=== PATIENT | female | born 1975 | race Caucasian/White ===

== ENCOUNTER 2023-02-13 09:00 | Day surgery (SDC) | payer OTHER ==
[2023-02-12 11:33] VITALS: BMI 45.3
[~2023-02-13 09:00] MED LIST: ALPRAZolam 0.25 MG TAB PO PRN; ALPRAZolam 0.5 MG TAB PO PRN; ASPIRIN 325 MG TAB PO STA; ATORVASTATIN 80 MG TAB PO STA; HEPARIN SODIUM,PORCINE (1 ML) 2,500 UNIT in SODIUM CHLORIDE 0.9% 250 ML IRRIGATION PRN; HEPARIN SODIUM,PORCINE 10,000 UNIT in SODIUM CHLORIDE 0.9% 1,000 ML IRRIGATION PRN; NITROGLYCERIN SL TABS 0.4 MG TAB SUBLINGUAL PRN; SODIUM CHLORIDE 0.9% 1,000 ML in EMPTY BAG 1 BAG IV SCH
[2023-02-13 09:52] VITALS: RESP 18; TEMP 98.1
[2023-02-13 09:58] LABS: Basophils % (A) 0 %; Eosinophils # (A) 0.4 k/uL (0-0.7); Eosinophils % (A) 4 %; HCT 50.7 % (34.0-46.0); HGB 15.7 gm/dL (11.4-16.0); Hypochromasia Moderate; Lymphocytes % (A) 21 %; MCH 30.3 pg (25.0-35.0); MCHC 30.9 g/dL (31.0-37.0); MCV 98.2 fL (80.0-100.0); Macrocytosis Slight; Monocytes % (A) 11 %; Neutrophils # (A) 5.8 k/uL (1.3-7.7); Neutrophils % (A) 60 %; Platelet Count 204 k/uL (150-450); RBC 5.16 m/uL (3.80-5.40); RDW 15.1 % (11.5-15.5); WBC 9.6 k/uL (3.8-10.6)
[2023-02-13 10:16] LABS: African American GFR (CKD) 71 (>60 ml/min/1.73 sqM); Anion Gap 9 mmol/L; Blood Urea Nitrogen 18 mg/dL (7-17); Calcium 9.4 mg/dL (8.4-10.2); Carbon Dioxide 26 mmol/L (22-30); Chloride 100 mmol/L (98-107); Glucose 118 mg/dL (74-99); Non-African American GFR(CKD) 62 (>60 ml/min/1.73 sqM); Potassium 4.3 mmol/L (3.5-5.1); Sodium 135 mmol/L (137-145)
[2023-02-13] MEDS ORDERED: VERAPAMIL 2.5 MG/ML 2 ML AMP ONE (10:28)
[2023-02-13] MEDS ORDERED: HEPARIN SODIUM 1,000 UN/ML (10ML VL) ONE (10:29)
[2023-02-13] MEDS ORDERED: fentaNYL (PF) 50 MCG/ML 2 ML AMP ONE (10:29)
[2023-02-13] MEDS: MIDAZOLAM 2 MG/2 ML VIAL IVP ONE ×2 (10:36→10:42)
[2023-02-13] MEDS: fentaNYL (PF) 50 MCG/ML 2 ML AMP IVP ONE ×2 (10:37→10:42)
[2023-02-13] MEDS: LIDOCAINE 2% (PF) 20 MG/ML 5 ML VIAL SQ ONE ×2 (10:41→10:46)
[2023-02-13] MEDS ORDERED: VERAPAMIL SYRINGE (5 MG/10 ML) INTRAARTER ONE (10:43)
[2023-02-13] MEDS ORDERED: HEPARIN SODIUM 1,000 UN/ML (10ML VL) IVP ONE (11:01)
[2023-02-13] MEDS ORDERED: IOPAMIDOL-370 100ML BTL INJ ONE ×2 (11:10)
[2023-02-13 11:30] LABS: O2 Sat Blood Gas 46.3 %
[2023-02-13 11:32] LABS: O2 Sat Blood Gas 79.4 %
[2023-02-13 11:46] LABS: O2 Sat Blood Gas 44.9 %
--- NOTE | 2023-02-13 15:46 | P.CARDCATH ---
Description of Procedure: PROCEDURES PERFORMED: Left heart catheterization, right heart catheterization, left ventriculogram, bilateral coronary angiography, ultrasound guided arterial access INDICATION: CMP, pulmonary hypertension CONSENT:I have discussed the risks, benefits and alternative therapies for the above-mentioned procedure and for both sedation/analgesia as well as necessary blood product administration, if indicated, as they pertain to this patient. The patient has indicated understanding and acceptance of the risks and procedures discussed. PROCEDURE: After the risks, benefits and alternatives of the above mentioned procedure explained in detail with the patient, informed consent was obtained. Patient was taken to the catheterization lab and prepped and draped in usual fashion. Ultrasound guidance was used to assess for arterial access. 1% lidocaine was used to anesthetize the right radial artery and right brachial areas. A 6-[place] sheath was placed in the right radial artery and additional 6-[place] sheath in the right brachial vein using modified Seldinger technique and ultrasound guidance. A 6Fr [place] catheter was inserted in the right atrium, right ventricle, pulmonary arterial and pulmonary Wedge positions with pressure measurements and oxygen saturation saturations obtained. Thermodilution was performed. The catheter was then removed. Left coronary angiography was performed with a 5-[place] JL 3.5 catheter and right coronary angiography was performed with a 5-[place] JR5 catheter in various views. A 5- [place] FR5 catheter was inserted into the left ventricle and pressure measurements were obtained. The right radial sheath was removed and a TR band was placed with hemostasis achieved. The brachial sheath was removed with pressure held and hemostasis achieved. The patient tolerated the procedure well. Patient was transported back to the post catheterization holding area in stable condition. Conscious Sedation: Patient was monitored under the direct supervision of myself for conscious sedation using Versed and fentanyl for a total duration of 25 minutes HEMODYNAMICS: Aorta: 167/97 LV: 160/14, LVEDP 27 Pulmonary Wedge position: 17 Pulmonary artery: 75/25 RV: 84/10 RA: 19 Pulmonary artery oxygen saturation: 46% Right atrial oxygen saturation: 45%: Right radial oxygen saturation: 79% (however pulse ox in 90's) Cardiac output by Leanne: 4.0 L/m Cardiac index by Leanne: 2 L/min/m2 Cardiac output thermodilution: 6.5 L/m Cardiac index by thermodilution: 3.2 L/m/m SELECTIVE CORONARY ARTERIOGRAPHY: LEFT MAIN: The left main is a large caliber vessel which bifurcates into the LAD and circumflex. There is no significant stenosis. LEFT ANTERIOR DESCENDING CORONARY ARTERY: LAD is a large caliber vessel which wraps around to the apex. There is mild 20-30% mid LAD stenosis and otherwise mild luminal irregularities. LEFT CIRCUMFLEX CORONARY ARTERY: Left circumflex is a moderate caliber vessel with luminal irregularities. RIGHT CORONARY ARTERY: The right coronary artery is a large caliber vessel which gives off a PDA and PLV branch and is the dominant vessel. There is a mid RCA 20-30% stenosis and otherwise mild luminal irregularities. LEFT VENTRIUCLOGRAM: Left ventricular ejection fraction 40-45% with global hypokinesis FINAL IMPRESSION: 1. Mild CAD as described above including 20-30% mid LAD and 20th 30% mid RCA stenosis. 2. Elevated left and right sided filling pressures 3. Nonischemic cardiomyopathy EF 40-45% 4. Low-normal cardiac output/cardiac index PLAN: 1. Aggressive risk factor modification per most recent ACC/AHA guidelines. 2. Optimize heart failure regimen with the addition of Aldactone and increase diuretics.
[2023-02-13 16:39] VITALS: BP 114/62; PULSE 64
== END 2023-02-13 16:00 | disposition home or self-care (01) ==
LOC: CATHCVL 09:00 → EDSEX 10:30 → CATHCVL 16:00
PROVIDERS: ATTEND Internal Medicine
DX: I25.10 Atherosclerotic heart disease of native coronary artery without angina pectoris (principal); I42.8 Other cardiomyopathies; I77.1 Stricture of artery; I27.20 Pulmonary hypertension, unspecified; I13.0 Hypertensive heart and chronic kidney disease with heart failure and stage 1 through stage 4 chronic kidney disease, or unspecified chronic kidney disease; N18.9 Chronic kidney disease, unspecified; I50.23 Acute on chronic systolic (congestive) heart failure; J44.9 Chronic obstructive pulmonary disease, unspecified; F17.210 Nicotine dependence, cigarettes, uncomplicated; Z91.199 Patient's noncompliance with other medical treatment and regimen due to unspecified reason; Z86.711 Personal history of pulmonary embolism; Z88.2 Allergy status to sulfonamides; Z88.1 Allergy status to other antibiotic agents; Z88.8 Allergy status to other drugs, medicaments and biological substances; Z79.82 Long term (current) use of aspirin; Z79.899 Other long term (current) drug therapy
CPT/HCPCS: 93460; 76937; 80048; 85018; 82810; 85025; 81025; C1769 ×2; C1894; C1751; J2250; J3010; J1644; Q9967; J2001

== ENCOUNTER 2023-06-10 02:23 | Inpatient (IN) | payer BC, OTHER ==
[2023-06-10] MEDS ORDERED: SODIUM CHLORIDE 0.9% 1,000 ML IV ONE (02:45)
[2023-06-10] MEDS ORDERED: ALBUTEROL NEBULIZED 2.5 MG/3 ML INHALATION STA (02:58)
[2023-06-10] MEDS ORDERED: methylPREDNISolone SOD SUCCI 125 MG/2 ML VIAL IV STA (02:59)
--- NOTE | 2023-06-10 03:06 | ED ---
General Adult HPI - General Chief complaint: Shortness of Breath Stated complaint: Flu-like symptoms, Cellulitis, Epigastric pain Time Seen by Provider: 06/10/23 02:28 Source: patient, EMS, RN notes reviewed, old records reviewed Mode of arrival: EMS - History of Present Illness Initial comments: 48-year-old female presenting for evaluation of dyspnea, epigastric pain, cough and fatigue. Patient states her symptoms have been present for the past several days. She does have history of asthma COPD. She admits to alcohol consumption. She states she has history of congestive heart failure and states that her legs have been more swollen. - Related Data Home Medications Medication Instructions Recorded Confirmed Aspirin [Children's Aspirin] 81 mg PO DAILY 02/12/23 02/13/23 Bumetanide [BUMEX] 2 mg PO DAILY 02/12/23 02/13/23 Buprenorphine/Naloxone 8Mg/2Mg 1 film SL TID 02/12/23 02/13/23 [Suboxone 8-2Mg Film] LORazepam [Ativan] 0.5 mg PO BID PRN 02/12/23 02/13/23 Metoprolol Succinate (ER) [Toprol 50 mg PO DAILY 02/12/23 02/13/23 Xl] lisinopriL [Zestril] 40 mg PO DAILY 02/12/23 02/13/23 Previous Rx's Medication Instructions Recorded Magnesium Oxide [Mag-Ox] 400 mg PO DAILY #90 tablet 02/13/23 Spironolactone [Aldactone] 50 mg PO DAILY #90 tab 02/13/23 Amoxic-Pot Clav 875-125Mg 1 tab PO Q12HR #20 tablet 03/17/23 [Augmentin 875-125] Allergies Allergy/AdvReac Type Severity Reaction Status Date / Time Sulfa (Sulfonamide Allergy Severe Anaphylaxis Verified 06/10/23 02:33 Antibiotics) bee venom protein (honey bee) Allergy Unknown Swelling Verified 06/10/23 02:33 propranolol Allergy Unknown Itching Verified 06/10/23 02:33 Review of Systems ROS Statement: Those systems with pertinent positive or pertinent negative responses have been documented in the HPI. ROS Other: All systems not noted in ROS Statement are negative. 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 , See Cardiology H & P. Last Myocardial Infarction Date:: january 2023? History of Any Multi-Drug Resistant Organisms: MRSA Date of last positivie culture/infection: 15 yrs ago MDRO Source:: on her chin Past Surgical History: Bladder Surgery Additional Past Surgical History / Comment(s): VAGINAL REJUVINATION, BLADDER LIFT Past Anesthesia/Blood Transfusion Reactions: Previous Problems w/ Anesthesia Additional Past Anesthesia/Blood Transfusion Reaction / Comment(s): STATES BREATHING DIFFICULTY Past Psychological History: Anxiety Smoking Status: Current every day smoker, Heavy tobacco smoker Past Alcohol Use History: Daily Past Drug Use History: None Reported General Exam General appearance: alert, in distress Head exam: Present: atraumatic, normocephalic Eye exam: Present: normal appearance, PERRL ENT exam: Present: normal exam Neck exam: Present: normal inspection Respiratory exam: Present: respiratory distress, wheezes, rales, accessory muscle use, decreased breath sounds Cardiovascular Exam: Present: regular rate, normal rhythm GI/Abdominal exam: Present: soft. Absent: distended, tenderness Extremities exam: Present: pedal edema Course Vital Signs 06/10/23 06/10/23 06/10/23 02:28 02:53 03:11 Temperature 95.8 F L 96.8 F L Pulse Rate 91 90 89 Respiratory 26 H 28 H 28 H Rate Blood Pressure 68/48 67/47 109/86 O2 Sat by Pulse 98 94 L 91 L Oximetry 06/10/23 06/10/23 06/10/23 03:18 03:26 04:00 Temperature Pulse Rate 87 90 Respiratory Rate Blood Pressure 103/74 O2 Sat by Pulse Oximetry Medical Decision Making - Medical Decision Making Was pt. sent in by a medical professional or institution (, PA, UTILITY MECHANIC SUPERVISOR, urgent care, hospital, or correction...) When possible be specific @ -No Did you speak to anyone other than the patient for history (EMS, parent, family, police, friend...)? What history was obtained from this source @ -[Paramedics Did you review nursing and triage notes (agree or disagree)? Why? @ -I reviewed and agree with nursing and triage notes Were old charts reviewed (outside hosp., previous admission, EMS record, old EKG, old radiological studies, urgent care reports/EKG's, correction records)? Report findings @ -No old charts were reviewed Differential Diagnosis (chest pain, altered mental status, abdominal pain women, abdominal pain men, vaginal bleeding, weakness, fever, dyspnea, syncope, headache, dizziness, GI bleed, back pain, seizure, CVA, palpatations, mental health, musculoskeletal)? @ -[Differential Dyspnea: Coronary syndrome, arrhythmia, tamponade, asthma, COPD, pulmonary embolism, pneumonia, pneumothorax, pulmonary effusion, anaphylaxis, diabetic ketoacidosis, flailed chest, pulmonary contusion, diaphragmatic rupture, anemia, neuromuscular, this is not meant to be an all-inclusive list. EKG interpreted by me (3pts min.). @ Sinus rhythm right bundle branch block, rate of 91, RI interval 173, QRS duration 140, QTC [address] segment elevation X-rays interpreted by me (1pt min.). @Chest x-ray: No large pleural effusion, significant cardiomegaly, no pneumothorax or focal pneumonia CT interpreted by me (1pt min.). @ -None done U/S interpreted by me (1pt. min.). @ -None done What testing was considered but not performed or refused? (CT, X-rays, U/S, labs)? Why? @ -None What meds were considered but not given or refused? Why? @ -None Did you discuss the management of the patient with other professionals (professionals i.e. , PA, UTILITY MECHANIC SUPERVISOR, lab, RT, psych nurse, social services technician, front desk assistant, teacher, commercial escrow officer, case loader operator)? Give summary @ Dr. Das Was smoking cessation discussed for >3mins.? @ -No Was critical care preformed (if so, how long)? @ -[yes 35 min Were there social determinants of health that impacted care today? How? (Homelessness, low income, unemployed, alcoholism, drug addiction, transportation, low edu. Level, literacy, decrease access to med. care, prison, rehab)? @ -No Was there de-escalation of care discussed even if they declined (Discuss DNR or withdrawal of care, Hospice)? DNR status @ -No What co-morbidities impacted this encounter? (DM, HTN, Smoking, COPD, CAD, Cancer, CVA, ARF, Chemo, Hep., AIDS, mental health diagnosis, sleep apnea, morbid obesity)? @ -[COPD, CHF Was patient admitted / discharged? Hospital course, mention meds given and route, prescriptions, significant lab abnormalities, going to OR and other pertinent info. @48-year-old female presenting with chief complaint of dyspnea, epigastric pain. Patient is initially hypotensive, hypothermic. She has moderate respiratory distress and hypoxia. She has significant bilateral lower extremity edema. She does admit to EtOH but states that she did not drink much. She is given IV fluids with improvement in blood pressure. She is also given albuterol and IV steroids. She likely has a mixed dyspnea which is related both COPD and CHF. Additionally she has a positive d-dimer. Regarding the d-dimer she's given Lovenox and VQ scan is ordered secondary to him. Kidney function with elevated creatinine at 1.97. She has a significantly elevated BNP over 20,000. There is no echo in our system for evaluation but the patient does have significant cardiomegaly on chest x-ray. She received both VQ scan and echocardiogram. Consultation with both pulmonology and cardiology. She's admitted to [facility] emergency department physician group Dr. Das Undiagnosed new problem with uncertain prognosis? @ -No Drug Therapy requiring intensive monitoring for toxicity (Heparin, Nitro, Insuli n, Cardizem)? @ -No Were any procedures done? @ -No Diagnosis/symptom? @CHF, COPD Acute, or Chronic, or Acute on Chronic? @ -Acute on chronic Uncomplicated (without systemic symptoms) or Complicated (systemic symptoms)? @ -Complicated Side effects of treatment? @ -No Exacerbation, Progression, or Severe Exacerbation? @ -No Poses a threat to life or bodily function? How? (Chest pain, [place], [place], pneumonia, PE, COPD, DKA, ARF, appy, cholecystitis, CVA, Diverticulitis, Homicidal, Suicidal, threat to staff... and all critical care pts) @ -Yes, respiratory failure - Lab Data Result diagrams: 06/10/23 02:56 06/10/23 02:56 Lab Results 06/10/23 06/10/23 06/10/23 Range/Units 02:56 02:56 02:56 WBC 12.7 H (3.8-10.6) k/uL RBC 4.90 (3.80-5.40) m/uL Hgb 16.5 H (11.4-16.0) gm/dL Hct 50.8 H (34.0-46.0) % MCV 103.7 H (80.0-100.0) fL MCH 33.7 (25.0-35.0) pg MCHC 32.5 (31.0-37.0) g/dL RDW 15.8 H (11.5-15.5) % Plt Count 154 (150-450) k/uL MPV 9.5 Neutrophils % 80 % Lymphocytes % 12 % Monocytes % 5 % Eosinophils % 2 % Basophils % 1 % Neutrophils # 10.1 H (1.3-7.7) k/uL Lymphocytes # 1.5 (1.0-4.8) k/uL Monocytes # 0.6 (0-1.0) k/uL Eosinophils # 0.2 (0-0.7) k/uL Basophils # 0.1 (0-0.2) k/uL Hypochromasia Slight Macrocytosis Moderate PT 12.2 (10.0-12.5) sec INR 1.1 (<1.2) APTT 23.5 (22.0-30.0) sec D-Dimer 2.09 H (<0.60) mg/L FEU Sodium 134 L (137-145) mmol/L Potassium 4.9 (3.5-5.1) mmol/L Chloride 93 L (98-107) mmol/L Carbon Dioxide 26 (22-30) mmol/L Anion Gap 15 mmol/L BUN 39 H (7-17) mg/dL Creatinine 1.97 H (0.52-1.04) mg/dL Est GFR (CKD-EPI)AfAm 34 (>60 ml/min/1.73 sqM) Est GFR (CKD-EPI)NonAf 29 (>60 ml/min/1.73 sqM) Glucose 170 H (74-99) mg/dL Plasma Lactic Acid Shun (0.7-2.0) mmol/L Calcium 8.7 (8.4-10.2) mg/dL Magnesium 2.2 (1.6-2.3) mg/dL Total Bilirubin 1.3 (0.2-1.3) mg/dL AST 187 H (14-36) U/L ALT 121 H (4-34) U/L Alkaline Phosphatase 122 (38-126) U/L Troponin I (0.000-0.034) ng/mL NT-Pro-B Natriuret Pep 70446 pg/mL Total Protein 6.0 L (6.3-8.2) g/dL Albumin 3.3 L (3.5-5.0) g/dL Lipase 144 (23-300) U/L Serum Alcohol 48 mg/dL Influenza Type A (PCR) (Not Detectd) Influenza Type B (PCR) (Not Detectd) RSV (PCR) (Not Detectd) SARS-CoV-2 (PCR) (Not Detectd) 06/10/23 06/10/23 06/10/23 Range/Units 02:56 02:56 02:56 WBC (3.8-10.6) k/uL RBC (3.80-5.40) m/uL Hgb (11.4-16.0) gm/dL Hct (34.0-46.0) % MCV (80.0-100.0) fL MCH (25.0-35.0) pg MCHC (31.0-37.0) g/dL RDW (11.5-15.5) % Plt Count (150-450) k/uL MPV Neutrophils % % Lymphocytes % % Monocytes % % Eosinophils % % Basophils % % Neutrophils # (1.3-7.7) k/uL Lymphocytes # (1.0-4.8) k/uL Monocytes # (0-1.0) k/uL Eosinophils # (0-0.7) k/uL Basophils # (0-0.2) k/uL Hypochromasia Macrocytosis PT (10.0-12.5) sec INR (<1.2) APTT (22.0-30.0) sec D-Dimer (<0.60) mg/L FEU Sodium (137-145) mmol/L Potassium (3.5-5.1) mmol/L Chloride (98-107) mmol/L Carbon Dioxide (22-30) mmol/L Anion Gap mmol/L BUN (7-17) mg/dL Creatinine (0.52-1.04) mg/dL Est GFR (CKD-EPI)AfAm (>60 ml/min/1.73 sqM) Est GFR (CKD-EPI)NonAf (>60 ml/min/1.73 sqM) Glucose (74-99) mg/dL Plasma Lactic Acid Shun 4.8 H* (0.7-2.0) mmol/L Calcium (8.4-10.2) mg/dL Magnesium (1.6-2.3) mg/dL Total Bilirubin (0.2-1.3) mg/dL AST (14-36) U/L ALT (4-34) U/L Alkaline Phosphatase (38-126) U/L Troponin I 0.032 (0.000-0.034) ng/mL NT-Pro-B Natriuret Pep pg/mL Total Protein (6.3-8.2) g/dL Albumin (3.5-5.0) g/dL Lipase (23-300) U/L Serum Alcohol mg/dL Influenza Type A (PCR) Not Detected (Not Detectd) Influenza Type B (PCR) Not Detected (Not Detectd) RSV (PCR) Not Detected (Not Detectd) SARS-CoV-2 (PCR) Not Detected (Not Detectd) Critical Care Time Critical Care Time: Yes Total Critical Care Time: 35 Disposition Clinical Impression: Congestive heart failure, Acute exacerbation of chronic obstructive pulmonary disease Disposition: ADMITTED IP TO THIS HOSP Condition: Serious Is patient prescribed a controlled substance at d/c from ED?: No When asked, does pt state using other controlled substances?: No Referrals: None,Stated [Primary Care Provider] - 1-2 days Time of Disposition: 04:43
[2023-06-10 03:34] LABS: Basophils # (A) 0.1 k/uL (0-0.2); Basophils % (A) 1 %; Eosinophils # (A) 0.2 k/uL (0-0.7); Eosinophils % (A) 2 %; HCT 50.8 % (34.0-46.0); HGB 16.5 gm/dL (11.4-16.0); Hypochromasia Slight; Lymphocytes # (A) 1.5 k/uL (1.0-4.8); Lymphocytes % (A) 12 %; MCH 33.7 pg (25.0-35.0); MCHC 32.5 g/dL (31.0-37.0); MCV 103.7 fL (80.0-100.0); Macrocytosis Moderate; Mean Platelet Volume 9.5; Monocytes # (A) 0.6 k/uL (0-1.0); Monocytes % (A) 5 %; Neutrophils # (A) 10.1 k/uL (1.3-7.7); Neutrophils % (A) 80 %; Platelet Count 154 k/uL (150-450); RDW 15.8 % (11.5-15.5); WBC 12.7 k/uL (3.8-10.6)
[2023-06-10 03:43] LABS: ALT 121 U/L (4-34); AST 187 U/L (14-36); African American GFR (CKD) 34 (>60 ml/min/1.73 sqM); Albumin 3.3 g/dL (3.5-5.0); Alcohol 48 mg/dL; Alkaline Phosphatase 122 U/L (38-126); Anion Gap 15 mmol/L; Blood Urea Nitrogen 39 mg/dL (7-17); Calcium 8.7 mg/dL (8.4-10.2); Carbon Dioxide 26 mmol/L (22-30); Chloride 93 mmol/L (98-107); Glucose 170 mg/dL (74-99); Lipase 144 U/L (23-300); Magnesium 2.2 mg/dL (1.6-2.3); Non-African American GFR(CKD) 29 (>60 ml/min/1.73 sqM); Sodium 134 mmol/L (137-145); Total Bilirubin 1.3 mg/dL (0.2-1.3)
[2023-06-10] MEDS ORDERED: SODIUM CHLORIDE 0.9% 500 ML 500 ML IV STA (03:44)
[2023-06-10 03:51] LABS: INR 1.1 (<1.2); NT-Pro-B-Type Natriuretic Pept 25400 pg/mL; Partial Thromboplastin Time 23.5 sec (22.0-30.0); Prothrombin Time 12.2 sec (10.0-12.5)
[2023-06-10 04:27] LABS: Potassium 4.9 mmol/L (3.5-5.1)
[2023-06-10] MEDS ORDERED: NALOXONE 0.4 MG/ML 1 ML VIAL IVP PRN (04:33)
[2023-06-10] MEDS ORDERED: SODIUM CHLORIDE 0.9% 1,000 ML IV SCH (04:45)
[2023-06-10] MEDS ORDERED: MORPHINE SULFATE 2 MG/ML SYRINGE IVP STA (04:49)
[2023-06-10] MEDS ORDERED: ENOXAPARIN 100 MG/ML SYRINGE SQ ONE (05:00)
--- NOTE | 2023-06-10 05:57 | XR ---
EXAMINATION TYPE: XR chest 1V portable DATE OF EXAM: 06/10/2023 COMPARISON: Chest x-ray and CT chest March 16, 2023 HISTORY: Chest pain, shortness of breath, hypotension, and vomiting TECHNIQUE: Single frontal view of the chest is obtained. FINDINGS: There is no suspicious new focal air space opacity, pleural effusion, or pneumothorax seen . Persistent right midlung linear scarring. Persistent cardiomegaly with bilateral hilar prominence suggesting underlying pulmonary artery hypertension. The osseous structures are intact. IMPRESSION: Cardiomegaly without new acute pulmonary process.
--- NOTE | 2023-06-10 06:01 | P.HPIM ---
History of Present Illness H&P Date: 06/10/23 Patient is a 48-year-old female with a PMH of systolic CHF, EtOH abuse, COPD, hypertension, who presents to the emergency room with complaints of lower extremity swelling and pain. Patient reports she is expressing interest worsening lower extremity edema with past 1 year which worsened significantly over the past 1 week. She reports losing from both her legs. Also reports dyspnea with exertion and occasional epigastric abdominal discomfort. Denies experiencing fever, chills, cough, nausea, vomiting. Patient reports she continues to drink a large glass of hard liquor daily and reports intermittent heavy drinking as much as a pint a day for the past several years. Chest x-ray in the emergency room was consistent with congestive heart failure. Laboratory evaluation revealed leukocytosis of 12.7, lactic acid 4.8, transaminases with AST 187, ALT 121, serum alcohol level 48, BUN 39, and creatinine 1.97 (baseline 0.6). The patient's SpO2 in the emergency room was 91% on 4 L nasal cannula oxygen. ED documentation reviewed and case discussed with ED provider Review of systems: Pertinent positives and negatives as discussed in HPI, a complete review of syst ems was performed and all other systems are negative. Physical examination: Vital signs reviewed General: non toxic, no distress, appears older than stated age, normal weight Derm: Chronic venous stasis changes bilateral lower extremities with erythema and oozing, warm Head: atraumatic, normocephalic, symmetric Eyes: EOMI, no lid lag, anicteric sclera, pupils equal round reactive to light ENT: Nose and ears atraumatic Neck: No cervical lymphadenopathy, trachea midline, supple Mouth: no lip lesion, mucus membranes moist Cardiovascular: S1S2 reg, no murmur, positive dorsalis pedis pulse bilateral, 2+ bilateral lower extremity pitting edema to thighs Lungs: CTA bilateral, no rhonchi, no rales, no accessory muscle use Abdominal: soft, nontender to palpation, no guarding Ext: muscle strength 4 out of 5 in all 4 extremities grossly, no gross muscle atrophy, no contractures, Neuro: CN II-XI grossly intact, no gross focal neuro deficits Psych: Alert, oriented, appropriate affect Assessment: Acute CHF exacerbation Acute kidney injury Macrocytosis Lactic acidosis Transaminitis, likely due to ongoing alcohol abuse Imaging: Chest x-ray in the emergency room was consistent with congestive heart failure. Data Review: Laboratory evaluation revealed leukocytosis of 12.7, lactic acid 4.8, transaminases with AST 187, ALT 121, serum alcohol level 48, BUN 39, and creatinine 1.97 (baseline 0.6). The patient's SpO2 in the emergency room was 91% on 4 L nasal cannula oxygen. Plan: Currently holding off on Lasix in light of borderline BP Monitor lactic acid levels Check b12 and folate levels C/w Thiamine and MVs Obtain echocardiogram Cardiac monitoring Cardiology consult Intake and output Daily weights Obtain VQ scan DVT prophylaxis: Lovenox Subq The patient is admitted with an anticipated greater than 2 midnight stay for evaluation of CHF exacerbation CODE STATUS: Full Code Discussed with: Patient Anticipated discharge place: Home Past Medical History Past Medical History: Heart Failure, COPD, Hypertension, Myocardial Infarction ([place]), Pneumonia, Pulmonary Embolus (PE), Renal Disease Additional Past Medical History / Comment(s): Hx aortic thrombosis with right kidney damage, 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 , See Cardiology H & P. Last Myocardial Infarction Date:: january 2023? History of Any Multi-Drug Resistant Organisms: MRSA Date of last positivie culture/infection: 15 yrs ago MDRO Source:: on her chin Past Surgical History: Bladder Surgery Additional Past Surgical History / Comment(s): VAGINAL REJUVINATION, BLADDER LIFT Past Anesthesia/Blood Transfusion Reactions: Previous Problems w/ Anesthesia Additional Past Anesthesia/Blood Transfusion Reaction / Comment(s): STATES BREATHING DIFFICULTY Past Psychological History: Anxiety Smoking Status: Current every day smoker, Heavy tobacco smoker Past Alcohol Use History: Daily Past Drug Use History: None Reported Medications and Allergies Home Medications Medication Instructions Recorded Confirmed Type Aspirin [Children's Aspirin] 81 mg PO DAILY 02/12/23 02/13/23 History Bumetanide [BUMEX] 2 mg PO DAILY 02/12/23 02/13/23 History Buprenorphine/Naloxone 8Mg/2Mg 1 film SL TID 02/12/23 02/13/23 History [Suboxone 8-2Mg Film] LORazepam [Ativan] 0.5 mg PO BID PRN 02/12/23 02/13/23 History Metoprolol Succinate (ER) [Toprol 50 mg PO DAILY 02/12/23 02/13/23 History Xl] lisinopriL [Zestril] 40 mg PO DAILY 02/12/23 02/13/23 History Magnesium Oxide [Mag-Ox] 400 mg PO DAILY #90 tablet 02/13/23 Rx Spironolactone [Aldactone] 50 mg PO DAILY #90 tab 02/13/23 Rx Amoxic-Pot Clav 875-125Mg 1 tab PO Q12HR #20 tablet 03/17/23 Rx [Augmentin 875-125] Allergies Allergy/AdvReac Type Severity Reaction Status Date / Time Sulfa (Sulfonamide Allergy Severe Anaphylaxis Verified 06/10/23 02:33 Antibiotics) bee venom protein (honey bee) Allergy Unknown Swelling Verified 06/10/23 02:33 propranolol Allergy Unknown Itching Verified 06/10/23 02:33 Physical Exam Vitals: Vital Signs Temp Pulse Resp BP Pulse Ox 06/10/23 04:00 103/74 06/10/23 03:26 90 06/10/23 03:18 87 06/10/23 03:11 89 28 H 109/86 91 L 06/10/23 02:53 96.8 F L 90 28 H 67/47 94 L 06/10/23 02:28 95.8 F L 91 26 H 68/48 98 Intake and Output 06/09/23 06/09/23 06/10/23 14:59 22:59 06:59 Other: Weight 99.79 kg Results CBC & Chem 7: 06/10/23 02:56 06/10/23 02:56 Labs: Abnormal Lab Results - Last 24 Hours (Table) 06/10/23 06/10/23 06/10/23 Range/Units 02:56 02:56 02:56 WBC 12.7 H (3.8-10.6) k/uL Hgb 16.5 H (11.4-16.0) gm/dL Hct 50.8 H (34.0-46.0) % MCV 103.7 H (80.0-100.0) fL RDW 15.8 H (11.5-15.5) % Neutrophils # 10.1 H (1.3-7.7) k/uL D-Dimer 2.09 H (<0.60) mg/L FEU Sodium 134 L (137-145) mmol/L Chloride 93 L (98-107) mmol/L BUN 39 H (7-17) mg/dL Creatinine 1.97 H (0.52-1.04) mg/dL Glucose 170 H (74-99) mg/dL Plasma Lactic Acid Shun (0.7-2.0) mmol/L AST 187 H (14-36) U/L ALT 121 H (4-34) U/L Total Protein 6.0 L (6.3-8.2) g/dL Albumin 3.3 L (3.5-5.0) g/dL 06/10/23 Range/Units 02:56 WBC (3.8-10.6) k/uL Hgb (11.4-16.0) gm/dL Hct (34.0-46.0) % MCV (80.0-100.0) fL RDW (11.5-15.5) % Neutrophils # (1.3-7.7) k/uL D-Dimer (<0.60) mg/L FEU Sodium (137-145) mmol/L Chloride (98-107) mmol/L BUN (7-17) mg/dL Creatinine (0.52-1.04) mg/dL Glucose (74-99) mg/dL Plasma Lactic Acid Shun 4.8 H* (0.7-2.0) mmol/L AST (14-36) U/L ALT (4-34) U/L Total Protein (6.3-8.2) g/dL Albumin (3.5-5.0) g/dL
[2023-06-10] MEDS: IPRATROPIUM-ALBUTEROL 3 ML NEB INHALATION SCH ×5 (07:57→19:53)
[2023-06-10] MEDS ORDERED: HEPARIN SODIUM 1,000 UN/ML (10ML VL) IV ONE (08:26)
[2023-06-10 08:55] LABS: INR 1.2 (<1.2); Partial Thromboplastin Time 25.2 sec (22.0-30.0); Prothrombin Time 12.4 sec (10.0-12.5)
[2023-06-10] MEDS ORDERED: FUROSEMIDE 10 MG/ML 2 ML VIAL IV SCH (09:00)
[2023-06-10] MEDS ORDERED: SPIRONOLACTONE 25 MG TAB PO SCH (09:00)
[2023-06-10] MEDS ORDERED: ENOXAPARIN 40 MG/0.4 ML SYRINGE SQ SCH (09:00)
[2023-06-10] MEDS ORDERED: methylPREDNISolone SOD SUCCI 125 MG/2 ML VIAL IV SCH (09:00)
[2023-06-10] MEDS ORDERED: METOPROLOL SUCCINATE (ER) 50 MG TAB.ER.24H PO SCH (09:00)
[2023-06-10] MEDS ORDERED: lisinopriL 20 MG TAB PO SCH (09:00)
[2023-06-10] MEDS ORDERED: HEPARIN SODIUM 1,000 UN/ML (10ML VL) IV PRN (09:01)
[2023-06-10 09:08] LABS: HCT 51.7 % (34.0-46.0); HGB 16.7 gm/dL (11.4-16.0); Hypochromasia Slight; MCHC 32.4 g/dL (31.0-37.0); Macrocytosis Moderate; Mean Platelet Volume 9.5; Platelet Count 144 k/uL (150-450); RBC 4.92 m/uL (3.80-5.40); RDW 15.8 % (11.5-15.5); WBC 10.2 k/uL (3.8-10.6)
[2023-06-10] MEDS ORDERED: HEPARIN SOD,PORK IN 0.45% NACL 25,000 UNIT in 0.45% NACL 1 250ML.BAG IV SCH (09:15)
[2023-06-10 09:18] LABS: African American GFR (CKD) 33 (>60 ml/min/1.73 sqM); Albumin 3.5 g/dL (3.5-5.0); Alkaline Phosphatase 135 U/L (38-126); Anion Gap 11 mmol/L; Blood Urea Nitrogen 47 mg/dL (7-17); Calcium 8.8 mg/dL (8.4-10.2); Carbon Dioxide 29 mmol/L (22-30); Chloride 96 mmol/L (98-107); Glucose 170 mg/dL (74-99); Non-African American GFR(CKD) 29 (>60 ml/min/1.73 sqM); Sodium 136 mmol/L (137-145); Total Bilirubin 1.2 mg/dL (0.2-1.3); Total Protein 6.4 g/dL (6.3-8.2)
[2023-06-10 09:26] LABS: ALT 919 U/L (4-34)
[2023-06-10 10:17] LABS: Potassium 5.9 mmol/L (3.5-5.1)
[2023-06-10 10:33] LABS: AST 1853 U/L (14-36)
--- NOTE | 2023-06-10 11:19 | P.NPCON ---
History of Present Illness - Reason for Consult acute renal failure - History of Present Illness Reason for consultation: Acute kidney injury History of present illness: The patient is a 48-year-old female seen in renal consultation for acute kidney injury. Patient's creatinine on admission was 1.97 and was stable at 2.01 as of this morning. Patient came to the hospital due to edema in her lower extr emities. Patient complains of drainage from her lower extremities with foul- smelling odor. She also states she has gained about 30 pounds over the last couple of months. She denies history of diabetes. No vomiting or diarrhea. Oral intake has been fair. She has been voiding. She does have history of kidney stones and she has a left ureteral stent that was placed in September 2020 or 2021. Patient states she's not sure. She never followed up with urology outpatient with a stent was placed due to insurance issues. Patient also states her right kidney is not functioning. She denies regular use of nonsteroidals. She denies family history of renal disease. Patient does have history of sm oking and tobacco abuse. She denies cardiac stents. Patient's ejection fraction was 40-45%. Vital signs are stable. General: No acute distress. HEENT: Head exam is unremarkable. On nasal cannula. LUNGS: No audible rhonchi or wheezes. HEART: Rate and Rhythm are regular. ABDOMEN: Obese, nontender. EXTREMITITES: 2+ edema. Chronic changes noted. Past Medical History Past Medical History: Heart Failure, COPD, Hypertension, Myocardial Infarction ([place]), Pneumonia, Pulmonary Embolus ([place]), Renal Disease Additional Past Medical History / Comment(s): Hx aortic thrombosis with right kidney damage, 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 , See Cardiology [facility]. Last Myocardial Infarction Date:: january 2023? History of Any Multi-Drug Resistant Organisms: MRSA Date of last positivie culture/infection: 15 yrs ago MDRO Source:: on her chin Past Surgical History: Bladder Surgery Additional Past Surgical History / Comment(s): VAGINAL REJUVINATION, BLADDER LIFT Past Anesthesia/Blood Transfusion Reactions: Previous Problems w/ Anesthesia Additional Past Anesthesia/Blood Transfusion Reaction / Comment(s): STATES BREATHING DIFFICULTY Past Psychological History: Anxiety Smoking Status: Current every day smoker, Heavy tobacco smoker Past Alcohol Use History: Daily Past Drug Use History: None Reported Medications and Allergies Home Medications Medication Instructions Recorded Confirmed Type Bumetanide [BUMEX] 2 mg PO DAILY 02/12/23 06/10/23 History Buprenorphine/Naloxone 8Mg/2Mg 1 film SUBLINGUAL BID 02/12/23 06/10/23 History [Suboxone 8-2Mg Film] Metoprolol Succinate (ER) [Toprol 50 mg PO DAILY 02/12/23 06/10/23 History Xl] lisinopriL [Zestril] 40 mg PO DAILY 02/12/23 06/10/23 History Magnesium Oxide [Mag-Ox] 400 mg PO DAILY #90 tablet 02/13/23 06/10/23 Rx Spironolactone [Aldactone] 50 mg PO DAILY #90 tab 02/13/23 06/10/23 Rx Albuterol Sulfate [Albuterol 2 puff PO RT-Q4H PRN 06/10/23 06/10/23 History Sulfate Hfa] Bumetanide [BUMEX] 2 mg PO DAILY 06/10/23 06/10/23 History Naloxone HCl 4 mg NS DIRECTED PRN 06/10/23 06/10/23 History Allergies Allergy/AdvReac Type Severity Reaction Status Date / Time Sulfa (Sulfonamide Allergy Severe Anaphylaxis Verified 06/10/23 07:32 Antibiotics) bee venom protein (honey bee) Allergy Unknown Swelling Verified 06/10/23 07:23 propranolol Allergy Unknown Itching Verified 06/10/23 07:23 Physical Exam Vitals: Vital Signs Temp Pulse Resp BP Pulse Ox 06/10/23 10:05 85 22 118/68 92 L 06/10/23 09:00 89 L 06/10/23 08:08 86 06/10/23 08:04 86 24 118/68 93 L 06/10/23 08:00 86 87 L 06/10/23 06:15 87 20 119/74 93 L 06/10/23 04:00 103/74 06/10/23 03:26 90 94 L 06/10/23 03:18 87 06/10/23 03:11 89 28 H 109/86 91 L 06/10/23 02:53 96.8 F L 90 28 H 67/47 94 L 06/10/23 02:28 95.8 F L 91 26 H 68/48 98 Intake and Output 06/09/23 06/10/23 06/10/23 22:59 06:59 14:59 Other: Weight 99.79 kg Results - Lab Results Most recent lab results Calcium 8.8 mg/dL (8.4-10.2) 06/10/23 08:58 Magnesium 2.2 mg/dL (1.6-2.3) 06/10/23 02:56 06/10/23 08:58 06/10/23 08:58 Assessment and Plan Plan: Assessment: 1. Acute kidney injury secondary to ATN secondary to cardiorenal syndrome. Creatinine 2.01 today. Creatinine in March 2023 was 0.63. 2. Acute on chronic systolic CHF with ejection fraction of 40-45%. 3. Hyperkalemia. Hemolyzed sample. 4. Volume overload. 5. History of nephrolithiasis with left ureteral stent. Plan: Increase IV Lasix to 40 mg twice daily. Hep-Lock IV fluids. Hold lisinopril and Aldactone. Repeat potassium level this afternoon. Check UA. Check renal ultrasound. Follow-up echocardiogram. Check bladder scan to rule out urinary retention. Continue to monitor renal function and urine output. Thank you for the consultation. I will continue to follow the patient with you during her hospital stay.
--- NOTE | 2023-06-10 11:52 | CA ---
Transthoracic Echo Report Name: Carrie Chambers Age: 48 Gender: F : 1975 Exam Date: 06/10/2023 07:24 Exam Location: [facility] Ht (in): 61 Wt (lb): 220 Ordering Physician: Taqueria Zazueta MD Attending/Referring Phys: [id number], Carlita Metallographer Briseyda Stevens, AHSAN Procedure CPT: Indications: RACHEL Cardiac Hx: smoker, COPD, CA, hx of pulmonary embolism, CHF Technical Quality: Fair Contrast 1: Total Dose (mL): Contrast 2: Total Dose (mL): MEASUREMENTS (Male / Female) Normal Values 2D ECHO LV Diastolic Diameter PLAX 3.2 cm 4.2 - 5.9 / 3.9 - 5.3 cm LV Systolic Diameter PLAX 2.3 cm IVS Diastolic Thickness 1.2 cm 0.6 - 1.0 / 0.6 - 0.9 cm LVPW Diastolic Thickness 1.1 cm 0.6 - 1.0 / 0.6 - 0.9 cm LV Relative Wall Thickness 0.7 RV Internal Dim ED PLAX 5.2 cm LA Systolic Diameter LX 3.4 cm 3.0 - 4.0 / 2.7 - 3.8 cm LV Diastolic Volume MOD 4C 52.7 cm??? LV Systolic Volume MOD 4C 21.8 cm??? LV Ejection Fraction MOD 4C 58.6 % LV Cardiac Index MOD 4C 1248.2 cm???/min???m??? LV Diastolic Length 4C 7.4 cm LV Systolic Length 4C 7.1 cm M-MODE Aortic Root Diameter MM 3.1 cm MV E Point Septal Separation 0.7 cm AV Cusp Separation MM 2.2 cm DOPPLER AV Peak Velocity 90.4 cm/s AV Peak Gradient 3.3 mmHg MV Area PHT 3.4 cm??? Mitral E Point Velocity 42.4 cm/s Mitral A Point Velocity 51.8 cm/s Mitral E to A Ratio 0.8 MV Deceleration Time 226.1 ms MV E' Velocity 3.6 cm/s Mitral E to MV E' Ratio 11.9 TR Peak Velocity 369.0 cm/s TR Peak Gradient 54.5 mmHg Right Ventricular Systolic Press 58.7 mmHg FINDINGS Left Ventricle Left ventricular ejection fraction is estimated at 55-60 %. Small left ventricular cavity. Mildly increased septal wall thickness. Mildly increased posterior wall thickness. Flattening of the ventricular septum in systole and diastoleCHF Right Ventricle Severe right ventricular dilatation. Severe pulmonary hypertension. Right ventricular systolic pressure estimated at 59 mm hg. Possible thrombus in RV [place]. Severely reduced right ventricular global systolic function. Hypokinetic right ventricular apex. Right Atrium Mild right atrial dilatation. Left Atrium Normal left atrial size. Mitral Valve Structurally normal mitral valve. No mitral stenosis, regurgitation or prolapse. Aortic Valve Trileaflet aortic valve. No aortic valve stenosis or regurgitation. Tricuspid Valve Structurally normal tricuspid valve. Moderate tricuspid regurgitation. Pulmonic Valve Structurally normal pulmonic valve. Trace pulmonic regurgitation. Pericardium No pericardial effusion. Aorta Normal size aortic root and proximal ascending aorta. CONCLUSIONS Normal LV size and systolic function. Severe enlargement of right ventricle with hypokinesia and a probable apical thrombus. Normally appearing mitral and aortic valve. Moderate tricuspid regurgitation and severe pulmonary hypertension. No pericardial effusion Previewed by: Dr. Jairo Mcfarland MD (Electronically Signed) Final Date: 10 June 2023 11:51
--- NOTE | 2023-06-10 12:09 | NM ---
EXAMINATION TYPE: NM pul vent and perfuse DATE OF EXAM: 06/10/2023 CLINICAL INDICATION: Female, 48 years old with history of kristi, pos dimer; HISTORY: Difficulty breathing TECHNIQUE: Utilizing inhalation of 68.7 mCi Tc 99m DTPA aerosol and intravenous injection of 5.3 mCi of Tc 99m MAA, ventilation and perfusion images are acquired post injection in multiple projections. FINDINGS: Large perfusion defects at the left lung base. Moderate sized right lower lobe defects are present at the right lung base. Moderate cardiomegaly is present. No basilar infiltrates masses. Report was called to the emergency room by Dr. Wallis at the time of interpretation. IMPRESSION: Mismatch perfusion ventilation defects bilateral lung bases, greater on the left. Findings compatible with high probability for pulmonary embolism based on PIOPED II criteria.
[2023-06-10] MEDS: MAGNESIUM OXIDE 400 MG TAB PO SCH (12:10)
[2023-06-10] MEDS ORDERED: ARGATROBAN 50 MG in SODIUM CHLORIDE 0.9% 50 ML IV SCH (12:15)
[2023-06-10] MEDS ORDERED: NICOTINE GUM (POLACRILEX) 2 MG GUM BUCCAL PRN (12:30)
--- NOTE | 2023-06-10 12:39 | P.CRDCN ---
History of Present Illness Consult date: 06/10/23 Consult reason: congestive heart failure History of present illness: History of present illness: This is a 48-year-old female patient of Dr. Leyva with past medical history of hypertension, aortic thrombosis with resultant damage to the left kidney and chronic kidney disease, ureteral stent, tobacco use, COPD, medical noncompliance, pulmonary embolism. Patient also has previous history of hospitalization at [facility] in 2017 with EF of 55% with RVSP 32 without significant valvular disease. 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 Additionally she has history of pulmonary nodule which is being monitored by Dr. Lacy. CAT scan in 2020 revealed linear weblike pulmonary artery filling defect involving segmental and subsegmental pulmonary artery branches of both lower lobes suggestive of chronic emboli with no definitive acute pulmonary embolism. Patient did have hypercoagulopathy workup and has been off Xarelto somewhat related to hematuria from ureteral stents. She was hospitalized at [facility] in January 2023 with increased edema found to have mildly elevated troponins and EF 40% with additional significant right-sided hypokinesia and paradoxic septal motion consistent with RV overload, moderate to severe dilated right ventricle and RVSP 51. A VQ scan at that time revealed possible CTEPH and patient had left AMA. Patient subsequently underwent left and right heart catheterization with revealed mild CAD and including 20-30% mid LAD, 20-30% mid RCA stenosis, elevated left and right sided filling pressures, nonischemic cardiomyopathy of 40-45%, low normal cardiac output cardiac index. Patient was started on Aldactone and diuretics increased. Patient is still smoking 1-1/2 packs per day. Patient states that she presented to the hospital due to shortness of breath and tightness in her chest when she walked. She's been very tired the last 3 days and is only slept. She also states she's had increased edema to the lower legs with losing from the legs and dizziness. Patient states that she is taking all of her current medications as directed. She presented with blood p ressure 68/48. EKG Chest x-ray: Cardiomegaly without acute pulmonary process. Echocardiogram reveals normal LV size and systolic function. Severe enlargement of the right ventricle with hypokinesia and probable apical thrombus. Normal- appearing mitral and aortic valves. Moderate tricuspid regurgitation and severe pulmonary hypertension. No pericardial effusion. VQ scan reveals mismatch perfusion ventilation defects bilateral lung bases greater on the left. Compatible with high probability for pulmonary embolism. WBC initially 12.7 on 03.09, hemoglobin 16.7, platelet count 144. INR 1.2. Sodium 136, potassium 5.9, chloride 96, BUN 47 creatinine 2.01. Blood sugar 170. Total bilirubin 1.2. AST 1853, ALT 919, alkaline phosphatase 135. Pro- calcitonin 0.24. ProBNP is 5400, troponin negative 1. Serum alcohol 48. Influenza A, influenza B, RSV, Covid 1991. Home cardiac medications: Bumex 2 mg daily, lisinopril 40 mg daily, magnesium oxide 400 mg daily, Toprol-XL 50 mg daily, Aldactone 50 mg daily. CTA of the chest performed 03/17/2023 revealed no acute pulmonary embolism. Right middle lobe nodule. Review Of Systems: At the time of my exam: CONSTITUTIONAL: Denies fever or chills. Reports dizziness. Reports fatigue CARDIOVASCULAR: Denies chest pain, + lower extremity edema, + shortness of breath, no orthopnea, PND or palpitations. RESPIRATORY: Denies cough. GASTROINTESTINAL: Denies abdominal pain, diarrhea, constipation, nausea or vomiting. MUSCULOSKELETAL: Denies myalgias. NEUROLOGIC: Denies numbness, tingling or weakness. ENDOCRINE: Denies fatigue, weight change, polydipsia or polyurina. GENITOURINARY: Denies burning, hematuria or urgency with micturation. HEMATOLOGIC: Denies history of anemia or bleeding. Physical examination: Gen: This is a 48-year-old morbidly obese female. Patient is resting in the year structure no acute respiratory distress noted. VS: reviewed HEENT: Head is atraumatic, normocephalic. Pupils equal, round. Sclerae is anic teric. NECK: Supple. No JVD. LUNGS: Diminished breath sounds bilaterally. No intercostal retractions. HEART: Regular rate and rhythm. No murmur. ABDOMEN: Soft No tenderness. EXTREMITIES: 2+ chronic pedal edema. No calf tenderness. NEUROLOGICAL: Patient is awake, alert and oriented x3. Assessment: Acute on chronic systolic heart failure Pulmonary embolism Probable apical thrombus Elevated liver function tests Acute kidney injury with chronic kidney disease, cardiorenal syndrome Cardiomyopathy with EF 40%, nonischemic Pulmonary hypertension History of pulmonary embolism History of aortic thrombosis involving the right kidney Hyperkalemia Suspected CTEPH Plan: Continue patient's home cardiac medications Start patient on heparin drip Pulmonary medicine for pulmonary embolism IV Lasix per nephrology Further recommendations to follow based upon clinical course Thank you kindly for this consultation. Nurse practitioner note has been reviewed, I agree with documented findings and plan of care. Patient was seen and examined. Past Medical History Past Medical History: Heart Failure, COPD, Hypertension, Myocardial Infarction ([place]), Pneumonia, Pulmonary Embolus ([place]), Renal Disease Additional Past Medical History / Comment(s): Hx aortic thrombosis with right kidney damage, 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 , See Cardiology H & P. Last Myocardial Infarction Date:: january 2023? History of Any Multi-Drug Resistant Organisms: MRSA Date of last positivie culture/infection: 15 yrs ago MDRO Source:: on her chin Past Surgical History: Bladder Surgery Additional Past Surgical History / Comment(s): VAGINAL REJUVINATION, BLADDER LIFT Past Anesthesia/Blood Transfusion Reactions: Previous Problems w/ Anesthesia Additional Past Anesthesia/Blood Transfusion Reaction / Comment(s): STATES BREATHING DIFFICULTY Past Psychological History: Anxiety Smoking Status: Current every day smoker, Heavy tobacco smoker Past Alcohol Use History: Daily Past Drug Use History: None Reported Medications and Allergies Home Medications Medication Instructions Recorded Confirmed Type Bumetanide [BUMEX] 2 mg PO DAILY 02/12/23 06/10/23 History Buprenorphine/Naloxone 8Mg/2Mg 1 film SUBLINGUAL BID 02/12/23 06/10/23 History [Suboxone 8-2Mg Film] Metoprolol Succinate (ER) [Toprol 50 mg PO DAILY 02/12/23 06/10/23 History Xl] lisinopriL [Zestril] 40 mg PO DAILY 02/12/23 06/10/23 History Magnesium Oxide [Mag-Ox] 400 mg PO DAILY #90 tablet 02/13/23 06/10/23 Rx Spironolactone [Aldactone] 50 mg PO DAILY #90 tab 02/13/23 06/10/23 Rx Albuterol Sulfate [Albuterol 2 puff PO RT-Q4H PRN 06/10/23 06/10/23 History Sulfate Hfa] Bumetanide [BUMEX] 2 mg PO DAILY 06/10/23 06/10/23 History Naloxone HCl 4 mg NS DIRECTED PRN 06/10/23 06/10/23 History Allergies Allergy/AdvReac Type Severity Reaction Status Date / Time Sulfa (Sulfonamide Allergy Severe Anaphylaxis Verified 06/10/23 07:32 Antibiotics) bee venom protein (honey bee) Allergy Unknown Swelling Verified 06/10/23 07:23 propranolol Allergy Unknown Itching Verified 06/10/23 07:23 Physical Exam Vitals: Vital Signs Temp Pulse Resp BP Pulse Ox 06/10/23 08:08 86 06/10/23 08:04 86 24 118/68 93 L 06/10/23 08:00 86 87 L 06/10/23 06:15 87 20 119/74 93 L 06/10/23 04:00 103/74 06/10/23 03:26 90 94 L 06/10/23 03:18 87 06/10/23 03:11 89 28 H 109/86 91 L 06/10/23 02:53 96.8 F L 90 28 H 67/47 94 L 06/10/23 02:28 95.8 F L 91 26 H 68/48 98 Intake and Output 06/09/23 06/10/23 06/10/23 22:59 06:59 14:59 Other: Weight 99.79 kg Results 06/10/23 08:58 06/10/23 08:58 Cardiac Enzymes 06/10/23 06/10/23 Range/Units 02:56 02:56 AST 187 H (14-36) U/L Troponin I 0.032 (0.000-0.034) ng/mL Coagulation 06/10/23 Range/Units 02:56 PT 12.2 (10.0-12.5) sec APTT 23.5 (22.0-30.0) sec CBC 06/10/23 Range/Units 02:56 WBC 12.7 H (3.8-10.6) k/uL RBC 4.90 (3.80-5.40) m/uL Hgb 16.5 H (11.4-16.0) gm/dL Hct 50.8 H (34.0-46.0) % Plt Count 154 (150-450) k/uL Comprehensive Metabolic Panel 06/10/23 Range/Units 02:56 Sodium 134 L (137-145) mmol/L Potassium 4.9 (3.5-5.1) mmol/L Chloride 93 L (98-107) mmol/L Carbon Dioxide 26 (22-30) mmol/L BUN 39 H (7-17) mg/dL Creatinine 1.97 H (0.52-1.04) mg/dL Glucose 170 H (74-99) mg/dL Calcium 8.7 (8.4-10.2) mg/dL AST 187 H (14-36) U/L ALT 121 H (4-34) U/L Alkaline Phosphatase 122 (38-126) U/L Total Protein 6.0 L (6.3-8.2) g/dL Albumin 3.3 L (3.5-5.0) g/dL Current Medications Generic Name Dose Route Start Last Admin Trade Name Freq PRN Reason Stop Dose Admin Albuterol/Ipratropium 3 ml 06/10/23 04:33 Ipratropium-Albuterol 3 Ml Neb INHALATION RT-Q2H PRN Shortness Of Breath Or Wheezing Albuterol/Ipratropium 3 ml 06/10/23 08:00 06/10/23 07:57 Ipratropium-Albuterol 3 Ml Neb INHALATION 3 ml RT-QID VÍCTOR Administration Enoxaparin Sodium 40 mg 06/10/23 09:00 Enoxaparin 40 Mg/0.4 Ml Syringe SQ DAILY VÍCTOR Sodium Chloride 1,000 mls @ 50 mls/hr 06/10/23 04:45 06/10/23 05:14 Saline 0.9% IV 50 mls/hr .Q20H VÍCTOR Administration Naloxone HCl 0.2 mg 06/10/23 04:33 Naloxone 0.4 Mg/Ml 1 Ml Vial IVP Q2M PRN Opioid Reversal Intake and Output 06/09/23 06/10/23 06/10/23 22:59 06:59 14:59 Other: Weight 99.79 kg 06/10/23 02:56 06/10/23 02:56
--- NOTE | 2023-06-10 13:19 | P.PN ---
Progress Note - Text Progress Note Date: 06/10/23 Hospitalist Interval Note Patient seen and examined at bedside. She is short of breath and is over all felling bad. Vital signs reviewed General: non toxic, no distress, Obese, appears older than stated age Derm: warm, dry, multiple areas of ulceration on b/l LE Head: atraumatic, normocephalic, symmetric Eyes: EOMI, no lid lag, anicteric sclera Mouth: no lip lesion, mucus membranes moist Cardiovascular: S1S2 irreg, no murmur, Lungs: Course bs bilateral, + 3-word conversation dyspnea, + Sternal retractions Abdominal: soft, nontender to palpation, no guarding, no appreciable organomegaly Ext: no gross muscle atrophy, 4+ non pitting edema, no contractures Assessment/Plan: Additional diagnosis since admission Probable b/l Pulmonary with right ventricular enlargement, hypokinesis, and stable right intraventricular clot Cardiorenal syndrome -Patient is unable to have heparin due to prior hit. -Case was discussed with cardiology nurse practitioner who will review with her attending regarding possible need for ecos given the patient's right heart strain and probable bilateral pulmonary emboli -Case discussed with Dr. Alvarez patient now has marginal blood pressures with increasing O2 requirements. Given this and the light of her worsening liver dysfunction, clot, history of PE, and renal dysfunction will admit to the ICU for close monitoring. -Hematology and oncology was contacted and case was discussed. Options would be argatroban drip which is hepatically cleared versus Arixtra which is renally cleared. We elected to discuss the case with pharmacy. After weighing both options argatroban versus Arixtra versus no treatment. No treatment was obviously excluded due to the patient's possible finding of right heart strain and hypotension. Her AST has increased from 187-1853 and her ALT has increased from 121-919 making argatroban a suboptimal choice given that is hepatically cleared and she is having active transaminitis. Her calculated creatinine clearance is 25.5. Arixtra dosing was reviewed with pharmacy. It does state to monitor for increased bleeding risk at creatinine clearance 30-50, ideally avoid with Cr clearance <30. However given the patient's option of either Arixtra versus argatroban, Arixtra was chosen as it is dialyzable should the patient started having increased bleeding. She is also 99.79 Kg and Dosing would be 10 mg for > 100 Kg and 7.5 mg for 50-100 Kg. Given her renal dysfunction will use arixtra 7.5 mg IV daily. Monitor closely for pleeding in the ICU - check liver US with doppler - Awiat repeat K+ this evening - monitor urine output -- D/W nephrology possible cardio renal syndrome - Lasix 40 mg IV BID, aware of arixtra use and that it is dialiaziable so if arixtra assoicated bleeding occurs could consider HD - poor overall prognosis This is an update note for patient , for full note on 06/10/23 see H and P. There is no charge associated with this note.
--- NOTE | 2023-06-10 13:33 | P.CNPUL ---
History of Present Illness Consult date: 06/10/23 Requesting physician: Maribeth Das Reason for consult: dyspnea Chief complaint: Shortness of breath History of present illness: This is a 48-year-old female with a very complicated medical history, patient is known to have history of hypertension, aortic thrombosis, chronic kidney disease, COPD, medical noncompliance, history of pulmonary embolism and pulmonary hypertension, in addition to all of this the patient continues to smoke on a regular basis, and continues to drink alcohol on a daily basis. 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 In January 07, patient was hospitalized at [facility] with elevated troponin, and congestive heart failure as well as elevated RVSP of 51, apparently she had a VQ scan at the time and she was noted to have chronic thromboembolic pulmonary hypertension but apparently the patient left AMA. Patient also had nonischemic cardiomyopathy and supposedly on diuretics but again her compliance is question. This time the patient came into the ER with mostly worsening shortness of breath with any activity, has been extremely tired and fatigued, and she has been noticing increased swelling in her lower extremities. We evaluated the patient in the ER, and reviewed the results of her echocardiogram showing severe enlargement of the right ventricle with hypokinesis and probable apical thrombus and severe pulmonary hypertension. VQ scan showed high probability for pulmonary embolism. Patient was also noted to have elevated BNP level, and significantly elevated liver enzymes. Serum alcohol was 48, looking back at a previous CT angiogram of the chest on 03/17/2023, there was clearly evidence of a right middle lobe nodule, and I'm not certain if this is being followed by anyone on outpatient basis. Her CT angiogram on 03/17 showed no evidence of pulmonary embolism. This time her VQ scan is showing high probability for pulmonary embolism. Again the main issue here is the fact that the patient had previous history of heparin-induced thrombocytopenia and she had issues with Xarelto and I believe considering her liver enzymes, are get to back in May not be safe to use. Hence hematology consultation is very appropriate at this point Review of Systems CONSTITUTIONAL: Mostly generalized fatigue no weight loss. CARDIOVASCULAR: As noted in HPI, dyspnea on exertion and swelling in lower extremities. RESPIRATORY: Chronic dyspnea which has been getting worse recently sometimes even at rest. GASTROINTESTINAL: Negative. MUSCULOSKELETAL: Negative. NEUROLOGIC: Negative ENDOCRINE: Negative GENITOURINARY: Negative HEMATOLOGIC: History of coagulopathy and poor tolerance to heparin as well as poor tolerance to Xarelto Skin: Chronic venous stasis changes in lower extremities with erythema and oozing. Past Medical History Past Medical History: Heart Failure, COPD, Hypertension, Myocardial Infarction ([place]), Pneumonia, Pulmonary Embolus ([place]), Renal Disease Additional Past Medical History / Comment(s): Hx aortic thrombosis with right k idney damage, 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 , See [facility] Last Myocardial Infarction Date:: january 2023? History of Any Multi-Drug Resistant Organisms: MRSA Date of last positivie culture/infection: 15 yrs ago MDRO Source:: on her chin Past Surgical History: Bladder Surgery Additional Past Surgical History / Comment(s): VAGINAL REJUVINATION, BLADDER LIFT Past Anesthesia/Blood Transfusion Reactions: Previous Problems w/ Anesthesia Additional Past Anesthesia/Blood Transfusion Reaction / Comment(s): STATES BREATHING DIFFICULTY Past Psychological History: Anxiety Smoking Status: Current every day smoker, Heavy tobacco smoker Past Alcohol Use History: Daily Past Drug Use History: None Reported Medications and Allergies Home Medications Medication Instructions Recorded Confirmed Type Bumetanide [BUMEX] 2 mg PO DAILY 02/12/23 06/10/23 History Buprenorphine/Naloxone 8Mg/2Mg 1 film SUBLINGUAL BID 02/12/23 06/10/23 History [Suboxone 8-2Mg Film] Metoprolol Succinate (ER) [Toprol 50 mg PO DAILY 02/12/23 06/10/23 History Xl] lisinopriL [Zestril] 40 mg PO DAILY 02/12/23 06/10/23 History Magnesium Oxide [Mag-Ox] 400 mg PO DAILY #90 tablet 02/13/23 06/10/23 Rx Spironolactone [Aldactone] 50 mg PO DAILY #90 tab 02/13/23 06/10/23 Rx Albuterol Sulfate [Albuterol 2 puff PO RT-Q4H PRN 06/10/23 06/10/23 History Sulfate Hfa] Bumetanide [BUMEX] 2 mg PO DAILY 06/10/23 06/10/23 History Naloxone HCl 4 mg NS DIRECTED PRN 06/10/23 06/10/23 History Allergies Allergy/AdvReac Type Severity Reaction Status Date / Time Sulfa (Sulfonamide Allergy Severe Anaphylaxis Verified 06/10/23 07:32 Antibiotics) bee venom protein (honey bee) Allergy Unknown Swelling Verified 06/10/23 07:23 propranolol Allergy Unknown Itching Verified 06/10/23 07:23 heparin Allergy Unknown Verified 06/10/23 12:43 Physical Exam Vitals: Vital Signs Temp Pulse Resp BP Pulse Ox 06/10/23 12:27 85 20 104/70 93 L 06/10/23 12:23 84 06/10/23 12:15 84 06/10/23 12:04 84 22 85/67 89 L 06/10/23 11:46 84 22 96/72 91 L 06/10/23 10:05 85 22 118/68 92 L 06/10/23 09:00 89 L 06/10/23 08:08 86 06/10/23 08:04 86 24 118/68 93 L 06/10/23 08:00 86 87 L 06/10/23 06:15 87 20 119/74 93 L 06/10/23 04:00 103/74 06/10/23 03:26 90 94 L 06/10/23 03:18 87 06/10/23 03:11 89 28 H 109/86 91 L 06/10/23 02:53 96.8 F L 90 28 H 67/47 94 L 06/10/23 02:28 95.8 F L 91 26 H 68/48 98 Intake and Output 06/09/23 06/10/23 06/10/23 22:59 06:59 14:59 Other: Weight 99.79 kg Physical Exam: Revealed 48-year-old female in no distress, on 6 L nasal cannula and O2 sats is 93% Head: Atraumatic, normocephalic. HEENT:[Neck is supple.] [No neck masses.] [No thyromegaly.] [No JVD.] Chest: [Diminished breath sound bilaterally some wheezing on forced expiratory maneuver only Cardiac Exam: [Normal S1 and S2, no S3 gallop, 2/6 systolic murmur thought the precordium Abdomen: [Obese, Soft, nontender, no megaly, no rebound, no guarding, normal bowel sounds.] Extremities: [No clubbing, 2+ bipedal edema with erythema and superficial ulcerations noted in both lower extremities and chronic venous stasis changes Neurological Exam: Alert and oriented 3 [No focal neurologic deficit.] Psychiatric: Normal mood, affect and normal mental status examination. Skin: Erythematous changes and ulcerations noted in lower extremities bilaterally with 2+ bipedal edema Results - Laboratory Findings CBC and BMP: 06/10/23 08:58 06/10/23 08:58 PT/INR, D-dimer PT 12.4 sec (10.0-12.5) 06/10/23 08:35 INR 1.2 (<1.2) H 06/10/23 08:35 D-Dimer 2.09 mg/L FEU (<0.60) H 06/10/23 02:56 Abnormal lab findings: Abnormal Labs 06/10/23 06/10/23 06/10/23 02:56 02:56 02:56 WBC 12.7 H Hgb 16.5 H Hct 50.8 H MCV 103.7 H RDW 15.8 H Plt Count Neutrophils # 10.1 H INR D-Dimer 2.09 H Sodium 134 L Potassium Chloride 93 L BUN 39 H Creatinine 1.97 H Glucose 170 H Plasma Lactic Acid Shun AST 187 H ALT 121 H Alkaline Phosphatase Total Protein 6.0 L Albumin 3.3 L Vitamin B12 Procalcitonin 06/10/23 06/10/23 06/10/23 02:56 08:01 08:35 WBC Hgb Hct MCV RDW Plt Count Neutrophils # INR 1.2 H D-Dimer Sodium Potassium Chloride BUN Creatinine Glucose Plasma Lactic Acid Shun 4.8 H* AST ALT Alkaline Phosphatase Total Protein Albumin Vitamin B12 >1800.0 H Procalcitonin 06/10/23 06/10/23 06/10/23 08:35 08:58 08:58 WBC Hgb 16.7 H Hct 51.7 H MCV 105.0 H RDW 15.8 H Plt Count 144 L Neutrophils # INR D-Dimer Sodium 136 L Potassium 5.9 H Chloride 96 L BUN 47 H Creatinine 2.01 H Glucose 170 H Plasma Lactic Acid Shun AST 1853 H ALT 919 H Alkaline Phosphatase 135 H Total Protein Albumin Vitamin B12 Procalcitonin 0.24 H - Diagnostic Findings Additional studies: VQ scan noted to show high probability for pulmonary embolism Chest x-ray showed cardiomegaly without new acute pulmonary process Assessment and Plan Assessment: Impression: Acute hypoxic respiratory failure, multifactorial Suspect chronic thromboembolic pulmonary hypertension Suspect acute pulmonary embolism Apical cardiac thrombosis Acute alcoholic hepatitis. Acute kidney injury, possible cardiorenal syndrome Nonischemic cardiomyopathy Severe pulmonary hypertension History of aortic thrombosis and renal infarct Acute on chronic kidney disease History of pulmonary nodule History of heparin-induced thrombocytopenia Chronic venous insufficiency with chronic venous stasis and lower extremities, rule out DVT Chronic obstructive pulmonary disease Tobacco dependence syndrome History of alcohol abuse Recommendation: Admit patient to ICU Consult hematology as to decide on anticoagulations therapy on this patient, patient had issues with heparin she also had issues with Xarelto and she may have to be treated with arixtra Considering her liver disease cannot use argatroban Nephrology consultation Cardiac consultation Cautious diuresis on this patient is a must. She is now on Lasix 40 mg IV push twice a day Bronchodilators for underlying COPD Counseled her regarding smoking cessation and alcohol abstinence. Patient should be placed on alcohol withdrawal protocol and cautiously observed for possible withdrawal Overall prognosis is poor Patient has a very complex medical issues and would admit and monitor in the ICU for now. We continue to follow Time with Patient: Greater than 30
[2023-06-10] MEDS: FONDAPARINUX 7.5 MG/0.6 ML SYRINGE SQ SCH (13:36)
[2023-06-10] MEDS: NICOTINE 21MG/24HR PATCH TRANSDERM SCH (13:37)
--- NOTE | 2023-06-10 15:46 | US ---
EXAMINATION TYPE: US venous doppler duplex LE BI DATE OF EXAM: 06/10/2023 8:35 AM COMPARISON: CLINICAL INDICATION: Female, 48 years old with history of Edema, dyspnea; Probable PE. Bilateral leg swelling. Patient states having hx of right renal thrombus. Not on blood thinners. SIDE PERFORMED: Bilateral TECHNIQUE: The lower extremity deep venous system is examined utilizing real time linear array sonog lisbet with graded compression, doppler sonography and color-flow sonography. VESSELS IMAGED: Common Femoral Vein Deep Femoral Vein Greater Saphenous Vein * Femoral Vein Popliteal Vein Small Saphenous Vein * Proximal Calf Veins (* superficial vessels) Right Leg: Negative for DVT Left Leg: Positive for DVT from proximal popliteal vein to proximal calf area with internal echoes v isualized, no vascular flow seen IMPRESSION: 1. Deep venous thrombosis left lower extremity.
[2023-06-10 16:27] LABS: Appearance,Urine Cloudy (Clear); Bilirubin,Urine Negative (Negative); Blood,Urine Large (Negative); Color,Urine Yellow; Glucose,Urine (UA) Negative (Negative); Hyaline Casts,Urine 3 /lpf (0-2); Ketones,Urine Negative (Negative); Leukocyte Esterase,Urine Large (Negative); Mucus,Urine Rare /hpf; Nitrite,Urine Negative (Negative); PH, Urine 6.5 (5.0-8.0); Protein,Urine 2+ (Negative); RBC,Urine >182 /hpf (0-5); Specific Gravity,Urine 1.023 (1.001-1.035); Squamous Epithelial Cell,Urine 15 /hpf (0-4); Urobilinogen,Urine <2.0 mg/dL (<2.0); WBC,Urine 59 /hpf (0-5)
[2023-06-10] MEDS: fentaNYL (PF) 50 MCG/ML 2 ML AMP IVP PRN ×2 (17:40→20:07)
[2023-06-10] MEDS: SODIUM ZIRCONIUM CYCLOSILICATE 10 GM PACKET PO SCH (17:40)
[2023-06-10 19:51] LABS: Glucose,Whole Blood 218 mg/dL (70-110)
[2023-06-10] MEDS: FUROSEMIDE 10 MG/ML 4 ML VIAL IV SCH (20:48)
[2023-06-11] MEDS: fentaNYL (PF) 50 MCG/ML 2 ML AMP IVP PRN ×5 (00:37→18:16)
[2023-06-11 06:29] LABS: Basophils % (A) 0 %; Eosinophils # (A) 0.1 k/uL (0-0.7); Eosinophils % (A) 0 %; HCT 46.6 % (34.0-46.0); HGB 15.3 gm/dL (11.4-16.0); Hypochromasia Slight; Lymphocytes % (A) 6 %; MCH 34.7 pg (25.0-35.0); MCHC 32.9 g/dL (31.0-37.0); MCV 105.6 fL (80.0-100.0); Macrocytosis Moderate; Mean Platelet Volume 10.2; Monocytes # (A) 0.7 k/uL (0-1.0); Monocytes % (A) 4 %; Neutrophils # (A) 13.5 k/uL (1.3-7.7); Neutrophils % (A) 88 %; Platelet Count 144 k/uL (150-450); RBC 4.41 m/uL (3.80-5.40); RDW 15.7 % (11.5-15.5); WBC 15.4 k/uL (3.8-10.6)
[2023-06-11 06:35] LABS: INR 1.2 (<1.2); Prothrombin Time 12.9 sec (10.0-12.5)
[2023-06-11 06:49] LABS: African American GFR (CKD) 33 (>60 ml/min/1.73 sqM); Anion Gap 11 mmol/L; Blood Urea Nitrogen 57 mg/dL (7-17); Calcium 8.7 mg/dL (8.4-10.2); Carbon Dioxide 29 mmol/L (22-30); Chloride 95 mmol/L (98-107); Glucose 182 mg/dL (74-99); Magnesium 2.1 mg/dL (1.6-2.3); Non-African American GFR(CKD) 28 (>60 ml/min/1.73 sqM); Potassium 4.8 mmol/L (3.5-5.1); Sodium 135 mmol/L (137-145)
[2023-06-11] MEDS ORDERED: METOPROLOL SUCCINATE (ER) 50 MG TAB.ER.24H PO SCH (09:00)
--- NOTE | 2023-06-11 09:05 | P.PN ---
Subjective Progress Note Date: 06/11/23 The patient is a 48-year-old female who follows in the office with Dr. Leyva. She has a history of multiple complex medical issues. She recently presented to the hospital with shortness of breath and chest tightness. She was found to be hypoxic and hypotensive. Echocardiogram has revealed preserved LV function with severe RV enlargement with hypokinesia and probable apical thrombus. RVSP 58.7 mmHg. V/Q scan reveals profusion mismatch in the bilateral lung bases, worse on the left revealing high probability for pulmonary emboli. The patient has a history of EtOH and drug abuse with serum alcohol being 48 on admission. AST has peaked at over 1800 and with her history of heparin-induced thr ombocytopenia, awaiting hematology recommendations regarding anticoagulation. Patient was interviewed and examined sitting up on the side of the bed. She does have mildly labored breathing, but feels it has improved since her admission. No current chest pain, but reports low back discomfort. GENERAL: Ill-appearing, well-nourished. Mildly labored breathing. Patient reports low back pain. NECK: Supple without JVD or thyromegaly. LUNGS: Breath sounds coarse to auscultation bilaterally. Respiration equal and unlabored. HEART: Regular rate and rhythm. Soft systolic murmur. No rubs or gallops. S1 and S2 heard. EXTREMITIES: Normal range of motion, +3 lower extremity pitting edema. Hyperp igmentation with venous stasis ulcers. TELEMETRY: Sinus tachycardia LABS: WBC 15.4, hemoglobin 15.3, hematocrit 46.6, platelet 144, sodium 135, potassium 4.8, BUN 57, creatinine 2.0 to, magnesium 2.1 IMPRESSION: Heart failure exacerbation, chronic right-sided failure Chronic pulmonary emboli Probable apical thrombus Transaminitis Acute kidney injury with chronic kidney disease, cardiorenal syndrome Pulmonary hypertension Suspected chronic thromboembolic pulmonary hypertension History of aortic thrombosis with renal infarct History of heparin-induced thrombocytopenia History of EtOH abuse PLAN: No indication for EKOS with chronic pulmonary emboli Recommend anticoagulation with chronic systemic clotting disorder, however this is complicated by her history of heparin-induced thrombocytopenia Recommend transfer to tertiary care center for escalation of care and with a comprehensive pulmonary hypertension program I am dictating on behalf of Dr Ceferino Butler's history/physical and ass essment/plan. Objective - Vital Signs Vital signs: Vital Signs Temp 98.3 F 06/11/23 00:00 Pulse 103 H 06/11/23 07:00 Resp 16 06/11/23 07:00 BP 103/60 06/11/23 07:00 Pulse Ox 93 L 06/11/23 07:00 FiO2 Intake & Output 06/10/23 06/11/23 06/11/23 18:59 06:59 18:59 Intake Total 480 Output Total 1400 Balance -920 Weight 108.7 kg Intake: Oral 480 Output: Urine 900 Urine/Stool Mix 500 Other: Voiding Method Bedside Commode - Labs CBC & Chem 7: 06/11/23 05:50 06/11/23 05:50 Labs: Abnormal Lab Results - Last 24 Hours (Table) 06/10/23 06/10/23 06/10/23 Range/Units 03:00 08:01 08:35 WBC (3.8-10.6) k/uL Hgb (11.4-16.0) gm/dL Hct (34.0-46.0) % MCV (80.0-100.0) fL RDW (11.5-15.5) % Plt Count (150-450) k/uL Neutrophils # (1.3-7.7) k/uL PT (10.0-12.5) sec INR 1.2 H (<1.2) Sodium (137-145) mmol/L Potassium (3.5-5.1) mmol/L Chloride (98-107) mmol/L BUN (7-17) mg/dL Creatinine (0.52-1.04) mg/dL Glucose (74-99) mg/dL POC Glucose (mg/dL) (70-110) mg/dL AST (14-36) U/L ALT (4-34) U/L Alkaline Phosphatase (38-126) U/L Vitamin B12 >1800.0 H (200.0-944.0) pg/mL Procalcitonin (0.02-0.09) ng/mL Urine Appearance Cloudy H (Clear) Urine Protein 2+ H (Negative) Urine Blood Large H (Negative) Ur Leukocyte Esterase Large H (Negative) Urine RBC >182 H (0-5) /hpf Urine WBC 59 H (0-5) /hpf Ur Squamous Epith Cells 15 H (0-4) /hpf Hyaline Casts 3 H (0-2) /lpf Urine Mucus Rare H (None) /hpf 06/10/23 06/10/23 06/10/23 Range/Units 08:35 08:58 08:58 WBC (3.8-10.6) k/uL Hgb 16.7 H (11.4-16.0) gm/dL Hct 51.7 H (34.0-46.0) % MCV 105.0 H (80.0-100.0) fL RDW 15.8 H (11.5-15.5) % Plt Count 144 L (150-450) k/uL Neutrophils # (1.3-7.7) k/uL PT (10.0-12.5) sec INR (<1.2) Sodium 136 L (137-145) mmol/L Potassium 5.9 H (3.5-5.1) mmol/L Chloride 96 L (98-107) mmol/L BUN 47 H (7-17) mg/dL Creatinine 2.01 H (0.52-1.04) mg/dL Glucose 170 H (74-99) mg/dL POC Glucose (mg/dL) (70-110) mg/dL AST 1853 H (14-36) U/L ALT 919 H (4-34) U/L Alkaline Phosphatase 135 H (38-126) U/L Vitamin B12 (200.0-944.0) pg/mL Procalcitonin 0.24 H (0.02-0.09) ng/mL Urine Appearance (Clear) Urine Protein (Negative) Urine Blood (Negative) Ur Leukocyte Esterase (Negative) Urine RBC (0-5) /hpf Urine WBC (0-5) /hpf Ur Squamous Epith Cells (0-4) /hpf Hyaline Casts (0-2) /lpf Urine Mucus (None) /hpf 06/10/23 06/10/23 06/11/23 Range/Units 14:21 19:50 05:50 WBC (3.8-10.6) k/uL Hgb (11.4-16.0) gm/dL Hct (34.0-46.0) % MCV (80.0-100.0) fL RDW (11.5-15.5) % Plt Count (150-450) k/uL Neutrophils # (1.3-7.7) k/uL PT (10.0-12.5) sec INR (<1.2) Sodium 135 L (137-145) mmol/L Potassium 5.6 H (3.5-5.1) mmol/L Chloride 95 L (98-107) mmol/L BUN 57 H (7-17) mg/dL Creatinine 2.02 H (0.52-1.04) mg/dL Glucose 182 H (74-99) mg/dL POC Glucose (mg/dL) 218 H (70-110) mg/dL AST (14-36) U/L ALT (4-34) U/L Alkaline Phosphatase (38-126) U/L Vitamin B12 (200.0-944.0) pg/mL Procalcitonin (0.02-0.09) ng/mL Urine Appearance (Clear) Urine Protein (Negative) Urine Blood (Negative) Ur Leukocyte Esterase (Negative) Urine RBC (0-5) /hpf Urine WBC (0-5) /hpf Ur Squamous Epith Cells (0-4) /hpf Hyaline Casts (0-2) /lpf Urine Mucus (None) /hpf 06/11/23 06/11/23 Range/Units 05:50 05:50 WBC 15.4 H (3.8-10.6) k/uL Hgb (11.4-16.0) gm/dL Hct 46.6 H (34.0-46.0) % MCV 105.6 H (80.0-100.0) fL RDW 15.7 H (11.5-15.5) % Plt Count 144 L (150-450) k/uL Neutrophils # 13.5 H (1.3-7.7) k/uL PT 12.9 H (10.0-12.5) sec INR 1.2 H (<1.2) Sodium (137-145) mmol/L Potassium (3.5-5.1) mmol/L Chloride (98-107) mmol/L BUN (7-17) mg/dL Creatinine (0.52-1.04) mg/dL Glucose (74-99) mg/dL POC Glucose (mg/dL) (70-110) mg/dL AST (14-36) U/L ALT (4-34) U/L Alkaline Phosphatase (38-126) U/L Vitamin B12 (200.0-944.0) pg/mL Procalcitonin (0.02-0.09) ng/mL Urine Appearance (Clear) Urine Protein (Negative) Urine Blood (Negative) Ur Leukocyte Esterase (Negative) Urine RBC (0-5) /hpf Urine WBC (0-5) /hpf Ur Squamous Epith Cells (0-4) /hpf Hyaline Casts (0-2) /lpf Urine Mucus (None) /hpf
[2023-06-11] MEDS: IPRATROPIUM-ALBUTEROL 3 ML NEB INHALATION SCH ×4 (09:42→19:48)
[2023-06-11] MEDS: FUROSEMIDE 10 MG/ML 4 ML VIAL IV SCH ×2 (09:50→20:30)
[2023-06-11] MEDS: NICOTINE 21MG/24HR PATCH TRANSDERM SCH (09:53)
[2023-06-11] MEDS: MAGNESIUM OXIDE 400 MG TAB PO SCH (09:54)
[2023-06-11] MEDS: SODIUM ZIRCONIUM CYCLOSILICATE 10 GM PACKET PO SCH (09:54)
[2023-06-11] MEDS: FONDAPARINUX 7.5 MG/0.6 ML SYRINGE SQ SCH (09:55)
--- NOTE | 2023-06-11 10:20 | US ---
EXAMINATION TYPE: US kidneys/renal and bladder DATE OF EXAM: 06/10/2023 COMPARISON: NONE CLINICAL INDICATION: Female, 48 years old with history of regino; Patient states having right renal infa rct which caused renal atrophy. Portable EC patient. Patient states having a bladder stent. EXAM MEASUREMENTS: Right Kidney: 8.9 x 3.7 x 3.3 cm Left Kidney: 11.0 x 6.3 x 6.4 cm Limited due to patient body habitus Right Kidney: Appears small in size. Small hypoechoic nonvascular lesion mid to inferior cortex = 1. 4 x 1.2 x 1.2 cm Left Kidney: hypoechoic area seen inferior to lower pole, unable to see peristalsing during exam, pro minent bowel vs other etiology = 4.7 x 4.2 x 2.9 cm Bladder: Posterior echogenic area seen = 3.6 cm. Bladder wall thickening. Possible stent seen. Bilateral Jets not seen IMPRESSION: 1. Possible small cyst right renal cortex. 2. Hypoechoic area inferior to the left kidney. This is of uncertain etiology. Consider abdomen or pe lvic ultrasound for additional evaluation 3. Thickened urinary bladder wall. Correlate for history of stent
--- NOTE | 2023-06-11 10:40 | P.PN ---
Subjective Patient is seen in follow-up for acute kidney injury. Renal function stable. On IV Lasix. Potassium level normal. On 4 L nasal cannula. Denies chest pain or shortness of breath. Vital signs are stable. General: No acute distress. HEENT: Head exam is unremarkable. On nasal cannula. LUNGS: No audible rhonchi or wheezes. HEART: Rate and Rhythm are regular. ABDOMEN: Nontender, obese. EXTREMITITES: 2+ edema. Chronic changes noted. Objective - Vital Signs Vital signs: Vital Signs Temp 97.3 F L 06/11/23 10:00 Pulse 102 H 06/11/23 10:00 Resp 16 06/11/23 10:00 BP 101/70 06/11/23 10:00 Pulse Ox 93 L 06/11/23 10:00 FiO2 Intake & Output 06/10/23 06/11/23 06/11/23 18:59 06:59 18:59 Intake Total 480 250 Output Total 1400 325 Balance -920 -75 Weight 108.7 kg Intake: Oral 480 250 Output: Urine 900 325 Urine/Stool Mix 500 Other: Voiding Method Bedside Commode - Labs CBC & Chem 7: 06/11/23 05:50 06/11/23 05:50 Labs: Abnormal Lab Results - Last 24 Hours (Table) 06/10/23 06/10/23 06/10/23 Range/Units 03:00 08:01 08:35 WBC (3.8-10.6) k/uL Hct (34.0-46.0) % MCV (80.0-100.0) fL RDW (11.5-15.5) % Plt Count (150-450) k/uL Neutrophils # (1.3-7.7) k/uL PT (10.0-12.5) sec INR (<1.2) Sodium (137-145) mmol/L Potassium (3.5-5.1) mmol/L Chloride (98-107) mmol/L BUN (7-17) mg/dL Creatinine (0.52-1.04) mg/dL Glucose (74-99) mg/dL POC Glucose (mg/dL) (70-110) mg/dL AST (14-36) U/L Vitamin B12 >1800.0 H (200.0-944.0) pg/mL Procalcitonin 0.24 H (0.02-0.09) ng/mL Urine Appearance Cloudy H (Clear) Urine Protein 2+ H (Negative) Urine Blood Large H (Negative) Ur Leukocyte Esterase Large H (Negative) Urine RBC >182 H (0-5) /hpf Urine WBC 59 H (0-5) /hpf Ur Squamous Epith Cells 15 H (0-4) /hpf Hyaline Casts 3 H (0-2) /lpf Urine Mucus Rare H (None) /hpf 06/10/23 06/10/23 06/10/23 Range/Units 08:58 14:21 19:50 WBC (3.8-10.6) k/uL Hct (34.0-46.0) % MCV (80.0-100.0) fL RDW (11.5-15.5) % Plt Count (150-450) k/uL Neutrophils # (1.3-7.7) k/uL PT (10.0-12.5) sec INR (<1.2) Sodium (137-145) mmol/L Potassium 5.6 H (3.5-5.1) mmol/L Chloride (98-107) mmol/L BUN (7-17) mg/dL Creatinine (0.52-1.04) mg/dL Glucose (74-99) mg/dL POC Glucose (mg/dL) 218 H (70-110) mg/dL AST 1853 H (14-36) U/L Vitamin B12 (200.0-944.0) pg/mL Procalcitonin (0.02-0.09) ng/mL Urine Appearance (Clear) Urine Protein (Negative) Urine Blood (Negative) Ur Leukocyte Esterase (Negative) Urine RBC (0-5) /hpf Urine WBC (0-5) /hpf Ur Squamous Epith Cells (0-4) /hpf Hyaline Casts (0-2) /lpf Urine Mucus (None) /hpf 06/11/23 06/11/23 06/11/23 Range/Units 05:50 05:50 05:50 WBC 15.4 H (3.8-10.6) k/uL Hct 46.6 H (34.0-46.0) % MCV 105.6 H (80.0-100.0) fL RDW 15.7 H (11.5-15.5) % Plt Count 144 L (150-450) k/uL Neutrophils # 13.5 H (1.3-7.7) k/uL PT 12.9 H (10.0-12.5) sec INR 1.2 H (<1.2) Sodium 135 L (137-145) mmol/L Potassium (3.5-5.1) mmol/L Chloride 95 L (98-107) mmol/L BUN 57 H (7-17) mg/dL Creatinine 2.02 H (0.52-1.04) mg/dL Glucose 182 H (74-99) mg/dL POC Glucose (mg/dL) (70-110) mg/dL AST (14-36) U/L Vitamin B12 (200.0-944.0) pg/mL Procalcitonin (0.02-0.09) ng/mL Urine Appearance (Clear) Urine Protein (Negative) Urine Blood (Negative) Ur Leukocyte Esterase (Negative) Urine RBC (0-5) /hpf Urine WBC (0-5) /hpf Ur Squamous Epith Cells (0-4) /hpf Hyaline Casts (0-2) /lpf Urine Mucus (None) /hpf Assessment and Plan Plan: Assessment: 1. Acute kidney injury secondary to ATN secondary to cardiorenal syndrome. Creatinine stable at 2.02 today. Creatinine in March 2023 was 0.63. No hyd ronephrosis noted on kidney ultrasound. Right kidney small in size. 2. Acute on chronic systolic CHF with ejection fraction of 40-45%. 3. Hyperkalemia. Hemolyzed sample. Normal today. 4. Volume overload. 5. History of nephrolithiasis with left ureteral stent. Urology consulted. 6. Chronic pulmonary emboli with probable apical thrombus. 7. Acute on chronic right-sided heart failure. Preserved EF noted on echocardiogram. 8. History of aortic thrombus with renal infarct. Right kidney atrophic. Plan: Maintain IV Lasix. Continue to hold lisinopril and Aldactone. Continue to monitor renal function and urine output. Avoid nephrotoxins. Repeat UA. Quantify proteinuria. Check serologies.
--- NOTE | 2023-06-11 13:07 | P.PN ---
Subjective Progress Note Date: 06/11/23 Principal diagnosis: Acute hypoxic referral failure, multifactorial This is a 48-year-old female with a very complicated medical history, patient is known to have history of hypertension, aortic thrombosis, chronic kidney disease, COPD, medical noncompliance, history of pulmonary embolism and pulmonary hypertension, in addition to all of this the patient continues to smoke on a regular basis, and continues to drink alcohol on a daily basis. 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 In January 07, patient was hospitalized at [facility] with elevated troponin, and congestive heart failure as well as elevated RVSP of 51, apparently she had a VQ scan at the time and she was noted to have chronic thromboembolic pulmonary hypertension but apparently the patient left AMA. Patient also had nonischemic cardiomyopathy and supposedly on diuretics but again her compliance is question. This time the patient came into the ER with mostly worsening shortness of breath with any activity, has been extremely tired and fatigued, and she has been noticing increased swelling in her lower extremities. We evaluated the patient in the ER, and reviewed the results of her echocardiogram showing severe enlargement of the right ventricle with hypokinesis and probable apical thrombus and severe pulmonary hypertension. VQ scan showed high probability for pulmonary embolism. Patient was also noted to have elevated BNP level, and significantly elevated liver enzymes. Serum alcohol was 48, looking back at a previous CT angiogram of the chest on 03/17/2023, there was clearly evidence of a right middle lobe nodule, and I'm not certain if this is being followed by anyone on outpatient basis. Her CT angiogram on 03/17 showed no evidence of pulmonary embolism. This time her VQ scan is showing high probability for pulmonary embolism. Again the main issue here is the fact that the patient had previous history of heparin-induced thrombocytopenia and she had issues with Xarelto and I believe considering her liver enzymes, are get to back in May not be safe to use. Hence hematology consultation is very appropriate at this point Patient was reevaluated today on 06/11/23, a is in the ICU, doing much better today, remains on nasal cannula, continues to have significant erythema and ulceration noted in the lower extremities especially in the left calf region. Blood pressure remains marginal, patient has good urine output, patient is on 3 L nasal cannula and her O2 saturation is ranging between 88-93. Does not seem to be in any distress. WBC count is 15.4 hemoglobin 15.3 basic metabolic profile is normal BUN is 57 creatinine 2.0, pro-calcitonin is 0.24. Patient is on bronchodilators, diuretics, I added cefepime today, patient is also on Arixtra , tolerating that quite well. Objective - Vital Signs Vital signs: Vital Signs Temp 97.3 F L 06/11/23 10:00 Pulse 112 H 06/11/23 12:00 Resp 22 06/11/23 12:00 BP 106/68 06/11/23 12:00 Pulse Ox 88 L 06/11/23 12:00 FiO2 Intake & Output 06/10/23 06/11/23 06/11/23 18:59 06:59 18:59 Intake Total 480 370 Output Total 1400 725 Balance -920 -355 Weight 108.7 kg Intake: Oral 480 370 Output: Urine 900 725 Urine/Stool Mix 500 Other: Voiding Method Bedside Commode Bedside Commode - Exam Physical Exam: Revealed 48-year-old female in no distress, on 3 L nasal cannula Head: Atraumatic, normocephalic. HEENT:[Neck is supple.] [No neck masses.] [No thyromegaly.] [No JVD.] Chest: [Diminished breath sound bilaterally, no wheezing noted today. Cardiac Exam: [Normal S1 and S2, no S3 gallop, 2/6 systolic murmur thought the precordium Abdomen: [Obese, Soft, nontender, no megaly, no rebound, no guarding, normal bowel sounds.] Extremities: [No clubbing, 2+ bipedal edema with erythema and superficial ulcerations noted in both lower extremities and chronic venous stasis changes Neurological Exam: Alert and oriented 3 [No focal neurologic deficit.] Psychiatric: Normal mood, affect and normal mental status examination. Skin: Erythematous changes and ulcerations noted in lower extremities bilaterally with 2+ bipedal edema - Labs CBC & Chem 7: 06/11/23 05:50 06/11/23 05:50 Labs: Abnormal Lab Results - Last 24 Hours (Table) 06/10/23 06/10/23 06/10/23 Range/Units 03:00 14:21 19:50 WBC (3.8-10.6) k/uL Hct (34.0-46.0) % MCV (80.0-100.0) fL RDW (11.5-15.5) % Plt Count (150-450) k/uL Neutrophils # (1.3-7.7) k/uL PT (10.0-12.5) sec INR (<1.2) Sodium (137-145) mmol/L Potassium 5.6 H (3.5-5.1) mmol/L Chloride (98-107) mmol/L BUN (7-17) mg/dL Creatinine (0.52-1.04) mg/dL Glucose (74-99) mg/dL POC Glucose (mg/dL) 218 H (70-110) mg/dL Urine Appearance Cloudy H (Clear) Urine Protein 2+ H (Negative) Urine Blood Large H (Negative) Ur Leukocyte Esterase Large H (Negative) Urine RBC >182 H (0-5) /hpf Urine WBC 59 H (0-5) /hpf Ur Squamous Epith Cells 15 H (0-4) /hpf Hyaline Casts 3 H (0-2) /lpf Urine Mucus Rare H (None) /hpf 06/11/23 06/11/23 06/11/23 Range/Units 05:50 05:50 05:50 WBC 15.4 H (3.8-10.6) k/uL Hct 46.6 H (34.0-46.0) % MCV 105.6 H (80.0-100.0) fL RDW 15.7 H (11.5-15.5) % Plt Count 144 L (150-450) k/uL Neutrophils # 13.5 H (1.3-7.7) k/uL PT 12.9 H (10.0-12.5) sec INR 1.2 H (<1.2) Sodium 135 L (137-145) mmol/L Potassium (3.5-5.1) mmol/L Chloride 95 L (98-107) mmol/L BUN 57 H (7-17) mg/dL Creatinine 2.02 H (0.52-1.04) mg/dL Glucose 182 H (74-99) mg/dL POC Glucose (mg/dL) (70-110) mg/dL Urine Appearance (Clear) Urine Protein (Negative) Urine Blood (Negative) Ur Leukocyte Esterase (Negative) Urine RBC (0-5) /hpf Urine WBC (0-5) /hpf Ur Squamous Epith Cells (0-4) /hpf Hyaline Casts (0-2) /lpf Urine Mucus (None) /hpf Assessment and Plan Assessment: Impression: Acute hypoxic respiratory failure, multifactorial Suspect chronic thromboembolic pulmonary hypertension Suspect acute pulmonary embolism Apical cardiac thrombosis Acute alcoholic hepatitis. Acute kidney injury, possible cardiorenal syndrome Nonischemic cardiomyopathy Severe pulmonary hypertension History of aortic thrombosis and renal infarct Acute on chronic kidney disease History of pulmonary nodule History of heparin-induced thrombocytopenia Chronic venous insufficiency with chronic venous stasis and lower extremities, rule out DVT Chronic obstructive pulmonary disease Tobacco dependence syndrome History of alcohol abuse Recommendation: Continue to monitor in the ICU Continue Arixtra Continue diuretics Added Salt today for her cellulitis and lower extremities Continue to monitor renal and liver profile Bronchodilators, to be continued Overall prognosis is poor We'll continue to follow Time with Patient: Less than 30
--- NOTE | 2023-06-11 16:10 | US ---
EXAMINATION TYPE: US liver doppler DATE OF EXAM: 06/10/2023 COMPARISON: NONE CLINICAL INDICATION: Female, 48 years old with history of transaminitis, concern for portal vein thro mbosis; Patient states having hx of right renal thrombus that caused atrophy. Portable exam. Limited due to patient body habitus and unable to hold breath for optimal waveform s EXAM MEASUREMENTS: Liver Length: 21.5 cm Gallbladder Wall: 0.6 cm RUQ ABDOMINAL ULTRASOUND Pancreas: Echogenic in appearance. Tail not well seen. Liver: Enlarged in size. Lobular, heterogenous and echogenic. Gallbladder: Fold seen in fundal region. Unable to obtain LLD images. Wall thickening. Possible f ree fluid seen adjacent to GB. Evidence for sonographic Puente's sign: neg CBD: Obscured by overlying bowel gas Ascites noted? no LIVER DOPPLER ULTRASOUND Portal vein: Patent Main Portal Vein diameter: 12.0 mm Flow direction: Hepatopetal Color flow patency seen within the main portal vein: Yes Main portal vein shows a monophasic waveform: Yes Color flow patency seen within the right portal vein: yes Right portal vein shows a monophasic waveform: Yes Color flow patency seen within the left portal vein: Yes Left portal vein shows a monophasic waveform: Yes Hepatic Artery: Resistive Index: 0.5 Acceleration Time: 0.13 s IVC/Hepatic Veins: Color flow patency seen within the IVC: Yes IVC shows a triphasic waveform: Yes Color flow patency seen within the right hepatic vein: Yes Right hepatic vein shows a triphasic waveform: Yes Color flow patency seen within the left hepatic vein: Yes Left hepatic vein shows a triphasic waveform: Yes Splenic Vein: Color flow patency seen within the splenic vein: Yes IMPRESSION: No evidence for portal vein thrombosis. No evidence for occlusion.
--- NOTE | 2023-06-11 16:34 | P.GSCN ---
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 Urology consulted for history of ureteral stent. Patient had a left ureteral stent placed back in 2020 at [facility] for left ureteral stone. Patient has not followed up for stent removal, due to loss of insurance.. She is currently asymptomatic from her stent. She has been having gross hematuria while on anticoagulation. Denies any dysuria or difficulty voiding. Prior to the stone in 2020 she has not had any previous stones. Her creatinine is elevated at 2 from a baseline of 0.6. Review of Systems - Constitutional Denies fever, Denies weight loss - EENT Ears, nose, mouth and throat: Denies dysphagia - Cardiovascular Reports dyspnea on exertion, Reports edema - Respiratory Reports cough, Reports dyspnea - Gastrointestinal Reports as per HPI - Genitourinary Genitourinary: Denies dysuria, Denies hematuria Past Medical History Past Medical History: Heart Failure, COPD, Hypertension, Myocardial Infarction (CO), Pneumonia, Pulmonary Embolus (PE), Renal Disease Additional Past Medical History / Comment(s): Hx aortic thrombosis with right kidney damage, 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 , See [facility] Last Myocardial Infarction Date:: january 2023? 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 yrs ago MDRO Source:: on her chin Past Surgical History: Bladder Surgery Additional Past Surgical History / Comment(s): VAGINAL REJUVINATION, BLADDER LIFT Past Anesthesia/Blood Transfusion Reactions: Previous Problems w/ Anesthesia Additional Past Anesthesia/Blood Transfusion Reaction / Comm: STATES BREATHING DIFFICULTY Smoking Status: Current every day smoker Medications and Allergies Home Medications Medication Instructions Recorded Confirmed Type Bumetanide [BUMEX] 2 mg PO DAILY 02/12/23 06/10/23 History Buprenorphine/Naloxone 8Mg/2Mg 1 film SUBLINGUAL BID 02/12/23 06/10/23 History [Suboxone 8-2Mg Film] Metoprolol Succinate (ER) [Toprol 50 mg PO DAILY 02/12/23 06/10/23 History Xl] lisinopriL [Zestril] 40 mg PO DAILY 02/12/23 06/10/23 History Magnesium Oxide [Mag-Ox] 400 mg PO DAILY #90 tablet 02/13/23 06/10/23 Rx Spironolactone [Aldactone] 50 mg PO DAILY #90 tab 02/13/23 06/10/23 Rx Albuterol Sulfate [Albuterol 2 puff PO RT-Q4H PRN 06/10/23 06/10/23 History Sulfate Hfa] Bumetanide [BUMEX] 2 mg PO DAILY 06/10/23 06/10/23 History Naloxone HCl 4 mg NS DIRECTED PRN 06/10/23 06/10/23 History Allergies Allergy/AdvReac Type Severity Reaction Status Date / Time Sulfa (Sulfonamide Allergy Severe Anaphylaxis Verified 06/10/23 07:32 Antibiotics) bee venom protein (honey bee) Allergy Unknown Swelling Verified 06/10/23 07:23 propranolol Allergy Unknown Itching Verified 06/10/23 07:23 heparin Allergy Unknown Verified 06/10/23 12:43 Surgical - Exam Vital Signs Temp Pulse Resp BP Pulse Ox 95.8 F L 91 26 H 68/48 98 06/10/23 02:28 06/10/23 02:28 06/10/23 02:28 06/10/23 02:28 06/10/23 02:28 - General no distress, no pain - Eyes normal ocular movement, no pale - ENT normal nares, normal mucosa - Abdomen Abdomen: soft, non tender - Psychiatric oriented to time, oriented to person, oriented to place Results - Labs 06/11/23 05:50 06/11/23 05:50 Abnormal Lab Results - Last 24 Hours (Table) 06/10/23 06/10/23 06/11/23 Range/Units 03:00 19:50 05:50 WBC (3.8-10.6) k/uL Hct (34.0-46.0) % MCV (80.0-100.0) fL RDW (11.5-15.5) % Plt Count (150-450) k/uL Neutrophils # (1.3-7.7) k/uL PT (10.0-12.5) sec INR (<1.2) Sodium 135 L (137-145) mmol/L Chloride 95 L (98-107) mmol/L BUN 57 H (7-17) mg/dL Creatinine 2.02 H (0.52-1.04) mg/dL Glucose 182 H (74-99) mg/dL POC Glucose (mg/dL) 218 H (70-110) mg/dL Urine Appearance Cloudy H (Clear) Urine Protein 2+ H (Negative) Urine Blood Large H (Negative) Ur Leukocyte Esterase Large H (Negative) Urine RBC >182 H (0-5) /hpf Urine WBC 59 H (0-5) /hpf Ur Squamous Epith Cells 15 H (0-4) /hpf Hyaline Casts 3 H (0-2) /lpf Urine Mucus Rare H (None) /hpf 06/11/23 06/11/23 Range/Units 05:50 05:50 WBC 15.4 H (3.8-10.6) k/uL Hct 46.6 H (34.0-46.0) % MCV 105.6 H (80.0-100.0) fL RDW 15.7 H (11.5-15.5) % Plt Count 144 L (150-450) k/uL Neutrophils # 13.5 H (1.3-7.7) k/uL PT 12.9 H (10.0-12.5) sec INR 1.2 H (<1.2) Sodium (137-145) mmol/L Chloride (98-107) mmol/L BUN (7-17) mg/dL Creatinine (0.52-1.04) mg/dL Glucose (74-99) mg/dL POC Glucose (mg/dL) (70-110) mg/dL Urine Appearance (Clear) Urine Protein (Negative) Urine Blood (Negative) Ur Leukocyte Esterase (Negative) Urine RBC (0-5) /hpf Urine WBC (0-5) /hpf Ur Squamous Epith Cells (0-4) /hpf Hyaline Casts (0-2) /lpf Urine Mucus (None) /hpf Microbiology - Last 24 Hours (Table) 06/10/23 03:05 Blood Culture - Preliminary Blood 06/10/23 02:50 Blood Culture - Preliminary Blood Diabetes panel 06/11/23 Range/Units 05:50 Sodium 135 L (137-145) mmol/L Potassium 4.8 (3.5-5.1) mmol/L Chloride 95 L (98-107) mmol/L Carbon Dioxide 29 (22-30) mmol/L BUN 57 H (7-17) mg/dL Creatinine 2.02 H (0.52-1.04) mg/dL Glucose 182 H (74-99) mg/dL Calcium 8.7 (8.4-10.2) mg/dL Calcium panel 06/11/23 Range/Units 05:50 Calcium 8.7 (8.4-10.2) mg/dL Pituitary panel 06/11/23 Range/Units 05:50 Sodium 135 L (137-145) mmol/L Potassium 4.8 (3.5-5.1) mmol/L Chloride 95 L (98-107) mmol/L Carbon Dioxide 29 (22-30) mmol/L BUN 57 H (7-17) mg/dL Creatinine 2.02 H (0.52-1.04) mg/dL Glucose 182 H (74-99) mg/dL Calcium 8.7 (8.4-10.2) mg/dL Adrenal panel 06/11/23 Range/Units 05:50 Sodium 135 L (137-145) mmol/L Potassium 4.8 (3.5-5.1) mmol/L Chloride 95 L (98-107) mmol/L Carbon Dioxide 29 (22-30) mmol/L BUN 57 H (7-17) mg/dL Creatinine 2.02 H (0.52-1.04) mg/dL Glucose 182 H (74-99) mg/dL Calcium 8.7 (8.4-10.2) mg/dL Assessment and Plan Assessment: 48-year-old female with history of solitary kidney and retained left ureteral stent since 2020. Stent was placed at [facility]. Had a prolonged di scussion with her that stent should stay longer than 3 months, most likely there is significant amount of calcification on the stent given that it's been present for more than 2 years. At this point recommend obtaining a CT abdomen and pelvis to better evaluate the amount of calcification on the stent. Discussed with her given her respiratory status will hold off on proceeding with any further intervention at this points. But she will eventually require a stent removal. Discussed if stent stays in then the amount of calcification was multiple likely increase which can lead to further renal damage. -We'll obtain a CT renal stone protocol
[2023-06-11 16:46] LABS: Albumin 3.5 g/dL (3.8-4.9); Protein, Total 5.9 g/dL (6.2-8.2)
[2023-06-11 17:02] LABS: Glucose,Whole Blood 94 mg/dL (70-110)
[2023-06-11] MEDS ORDERED: LORazepam 2 MG/ML INJ IM PRN (19:22)
[2023-06-11] MEDS: HYDROmorphone 1 MG/ML 1 ML SYRINGE IVP PRN ×2 (20:24→23:56)
[2023-06-11] MEDS: PANTOPRAZOLE 40 MG TABLET PO SCH (20:30)
--- NOTE | 2023-06-12 02:05 | PN ---
PROGRESS NOTE SUBJECTIVE: Followed by surgery, urology, is being treated for right-sided heart failure, cellulitis of the legs, generalized edema, bilateral pulmonary embolisms, DVT, remains on blood thinners, breathing treatments, broad-spectrum antibiotics for leg infections. Consult with Infectious Disease. Urology saw her for gross hematuria in the past. Recent kidney stones and some hydronephrosis. MEDICATIONS: Reviewed. OBJECTIVE: CARDIOVASCULAR: S1, S2. LUNGS: Decreased breath sounds x4. HEMATOLOGIC: 3+ edema with right-sided heart failure, generalized edema. VITAL SIGNS: Pulse O2 was 89 to 90 on 3 to 4 L, blood pressure has been low in 60s to 100s, , respiratory rate 25 to 30. PSYCH: Anxious, nervous. MUSCULOSKELETAL: Palpation in the right over her chest where PE is. ABDOMEN: Distended due to obesity. LABORATORY DATA: BUN is 57, creatinine 2.02, hemoglobin is 15.3, white count 15.4. UA, large leukocyte esterase, large blood, over 182 red cells with 59 white cells, hemoglobin 15.4. ASSESSMENT: Solitary kidney, retained left ureteral stent, DVT, PE, right-sided chest pain. We are going to do a CT of the abdomen and chest tomorrow. Continue with breathing treatments for blood thinners. Prognosis guarded. Please see further orders. MMODL / IJN: [id number] /
[2023-06-12] MEDS: HYDROmorphone 1 MG/ML 1 ML SYRINGE IVP PRN ×5 (03:16→23:06)
[2023-06-12] MEDS: IPRATROPIUM-ALBUTEROL 3 ML NEB INHALATION PRN (03:20)
[2023-06-12 05:04] LABS: HCT 48.1 % (34.0-46.0); HGB 14.9 gm/dL (11.4-16.0); Hypochromasia Moderate; MCH 33.2 pg (25.0-35.0); MCHC 30.9 g/dL (31.0-37.0); MCV 107.4 fL (80.0-100.0); Macrocytosis Marked; Mean Platelet Volume 9.8; Platelet Count 184 k/uL (150-450); RBC 4.48 m/uL (3.80-5.40); RDW 15.5 % (11.5-15.5)
[2023-06-12 05:25] LABS: African American GFR (CKD) 36 (>60 ml/min/1.73 sqM); Anion Gap 12 mmol/L; Blood Urea Nitrogen 62 mg/dL (7-17); Calcium 8.2 mg/dL (8.4-10.2); Carbon Dioxide 27 mmol/L (22-30); Chloride 96 mmol/L (98-107); Glucose 154 mg/dL (74-99); Non-African American GFR(CKD) 31 (>60 ml/min/1.73 sqM); Potassium 5.2 mmol/L (3.5-5.1); Sodium 135 mmol/L (137-145)
[2023-06-12] MEDS: PANTOPRAZOLE 40 MG TABLET PO SCH ×2 (06:36→16:49)
[2023-06-12] MEDS: FUROSEMIDE 10 MG/ML 4 ML VIAL IV SCH ×2 (08:10→21:26)
[2023-06-12] MEDS: MAGNESIUM OXIDE 400 MG TAB PO SCH (08:10)
[2023-06-12] MEDS: NICOTINE 21MG/24HR PATCH TRANSDERM SCH (08:10)
[2023-06-12] MEDS: FONDAPARINUX 7.5 MG/0.6 ML SYRINGE SQ SCH (08:14)
[2023-06-12] MEDS: IPRATROPIUM-ALBUTEROL 3 ML NEB INHALATION SCH ×4 (08:15→19:46)
[2023-06-12] MEDS: fentaNYL (PF) 50 MCG/ML 2 ML AMP IVP PRN (08:28)
[2023-06-12] MEDS ORDERED: SODIUM ZIRCONIUM CYCLOSILICATE 10 GM PACKET PO ONE (09:50)
--- NOTE | 2023-06-12 10:31 | P.PN ---
Subjective Patient is seen in follow-up for acute kidney injury. Renal function stable. On IV Lasix. On 5 L nasal cannula. Denies chest pain. Oral intake fair. Vital signs are stable. General: No acute distress. HEENT: Head exam is unremarkable. On nasal cannula. LUNGS: No audible rhonchi or wheezes. HEART: Rate and Rhythm are regular. ABDOMEN: Nontender, obese. EXTREMITITES: 2+ edema. Chronic changes noted. Objective - Vital Signs Vital signs: Vital Signs Temp 98.5 F 06/12/23 08:00 Pulse 108 H 06/12/23 09:00 Resp 30 H 06/12/23 09:00 BP 102/92 06/12/23 08:00 Pulse Ox 93 L 06/12/23 09:00 FiO2 Intake & Output 06/11/23 06/12/23 06/12/23 18:59 06:59 18:59 Intake Total 840 590 50 Output Total 825 1175 550 Balance 15 -585 -500 Weight 108 kg Intake: Intake, IV Titration 100 50 50 Amount ceFAZolin 1,000 mg In 100 50 50 Sodium Chloride 0.9% 50 ml @ 100 mls/hr IVPB Q8HR [facility] Rx#:[id number] Oral 740 Tube Feeding 540 Output: Urine 825 1175 550 Other: Voiding Method Bedside Commode Bedside Commode - Labs CBC & Chem 7: 06/12/23 04:26 06/12/23 04:26 Labs: Abnormal Lab Results - Last 24 Hours (Table) 06/11/23 06/12/23 06/12/23 Range/Units 11:39 04:26 04:26 WBC 16.0 H (3.8-10.6) k/uL Hct 48.1 H (34.0-46.0) % MCV 107.4 H (80.0-100.0) fL MCHC 30.9 L (31.0-37.0) g/dL Macrocytosis Marked A Sodium 135 L (137-145) mmol/L Potassium 5.2 H (3.5-5.1) mmol/L Chloride 96 L (98-107) mmol/L BUN 62 H (7-17) mg/dL Creatinine 1.88 H (0.52-1.04) mg/dL Glucose 154 H (74-99) mg/dL Calcium 8.2 L (8.4-10.2) mg/dL Total Protein (PEP) 5.9 L (6.2-8.2) g/dL Albumin (PEP) 3.5 L (3.8-4.9) g/dL Microbiology - Last 24 Hours (Table) 06/11/23 12:00 Gram Stain - Preliminary Leg - Right Wound Culture - Preliminary Gram Neg Bacilli 06/10/23 03:05 Blood Culture - Preliminary Blood 06/10/23 02:50 Blood Culture - Preliminary Blood Assessment and Plan Plan: Assessment: 1. Acute kidney injury secondary to ATN secondary to cardiorenal syndrome. Creatinine stable at 1.88 today. Creatinine in March 2023 was 0.63. No hydronephrosis noted on kidney ultrasound. Right kidney small in size. 2. Acute on chronic systolic CHF with ejection fraction of 40-45%. 3. Hyperkalemia secondary to acute kidney injury, lisinopril and spironolactone. Improved with medical management. 4. Volume overload. Improving with diuresis. 5. History of nephrolithiasis with left ureteral stent. Urology following. 6. Chronic pulmonary emboli with probable apical thrombus. 7. Acute on chronic right-sided heart failure. Preserved EF noted on echocardiogram. 8. History of aortic thrombus with renal infarct. Right kidney atrophic. Plan: Maintain IV Lasix. Renal diet and 1500 mL fluid restriction. Continue to hold lisinopril and Aldactone. Lokelam 10 g once now. Continue to monitor renal function and urine output. Avoid nephrotoxins. F/u repeat UA. Quantify proteinuria. f/u serologies - negative so far. Follow-up CAT scan.
--- NOTE | 2023-06-12 10:33 | XR ---
EXAMINATION TYPE: XR chest 1V portable DATE OF EXAM: 06/12/2023 COMPARISON: 06/10/2023 INDICATION: CHF TECHNIQUE: Single frontal view of the chest is obtained. FINDINGS: The heart size is enlarged. The pulmonary vasculature is normal. The lungs are clear. IMPRESSION: 1. Mild cardiomegaly
--- NOTE | 2023-06-12 10:45 | P.PN ---
Progress Note - Text Progress Note Date: 06/12/[address] Leti Warner and Dr. Dunne. VQ scan revealed high p robability for PE. Due to hx of HIT and noted transaminitis Arixstra was recommended for anticoagulation with close monitoring of renal function, hgb and for acute bleeding
--- NOTE | 2023-06-12 12:53 | P.PN ---
Subjective Progress Note Date: 06/12/23 Principal diagnosis: Acute hypoxic referral failure, multifactorial This is a 48-year-old female with a very complicated medical history, patient is known to have history of hypertension, aortic thrombosis, chronic kidney disease, COPD, medical noncompliance, history of pulmonary embolism and pulmonary hypertension, in addition to all of this the patient continues to smoke on a regular basis, and continues to drink alcohol on a daily basis. 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 In January 07, patient was hospitalized at [facility] with elevated troponin, and congestive heart failure as well as elevated RVSP of 51, apparently she had a VQ scan at the time and she was noted to have chronic thromboembolic pulmonary hypertension but apparently the patient left AMA. Patient also had nonischemic cardiomyopathy and supposedly on diuretics but again her compliance is question. This time the patient came into the ER with mostly worsening shortness of breath with any activity, has been extremely tired and fatigued, and she has been noticing increased swelling in her lower extremities. We evaluated the patient in the ER, and reviewed the results of her echocardiogram showing severe enlargement of the right ventricle with hypokinesis and probable apical thrombus and severe pulmonary hypertension. VQ scan showed high probability for pulmonary embolism. Patient was also noted to have elevated BNP level, and significantly elevated liver enzymes. Serum alcohol was 48, looking back at a previous CT angiogram of the chest on 03/17/2023, there was clearly evidence of a right middle lobe nodule, and I'm not certain if this is being followed by anyone on outpatient basis. Her CT angiogram on 03/17 showed no evidence of pulmonary embolism. This time her VQ scan is showing high probability for pulmonary embolism. Again the main issue here is the fact that the patient had previous history of heparin-induced thrombocytopenia and she had issues with Xarelto and I believe considering her liver enzymes, are get to back in May not be safe to use. Hence hematology consultation is very appropriate at this point Patient was reevaluated today on 06/11/23, a is in the ICU, doing much better today, remains on nasal cannula, continues to have significant erythema and ulceration noted in the lower extremities especially in the left calf region. Blood pressure remains marginal, patient has good urine output, patient is on 3 L nasal cannula and her O2 saturation is ranging between 88-93. Does not seem to be in any distress. WBC count is 15.4 hemoglobin 15.3 basic metabolic profile is normal BUN is 57 creatinine 2.0, pro-calcitonin is 0.24. Patient is on bronchodilators, diuretics, I added cefepime today, patient is also on Arixtra , tolerating that quite well. Reevaluated today on 06/12/23, remains in the ICU, patient is feeling better, breathing easier, seems to be tolerating Arixtra quite well, she is not requiring any pressors, her mean arterial pressure is normal and remained normal all along, did not require pressors and I plan to transfer the patient out of the ICU to a cardiac floor. Patient remains on Lasix at 40 mg IV push every 12 hours, remains on antibiotics/cefepime as per infectious disease on the case, and considering that the patient is not requiring much of an ICU care, I will transfer the patient to a cardiac bed. WBC count today 16 hemoglobin 14.9 basic metabolic profile is normal creatinine is improving down to 1.88 from 2.0 yesterday Objective - Vital Signs Vital signs: Vital Signs Temp 98.5 F 06/12/23 08:00 Pulse 105 H 06/12/23 11:57 Resp 24 06/12/23 10:00 BP 86/73 06/12/23 10:00 Pulse Ox 90 L 06/12/23 11:00 FiO2 Intake & Output 06/11/23 06/12/23 06/12/23 18:59 06:59 18:59 Intake Total 840 590 50 Output Total 825 1175 550 Balance 15 -134 -259 Weight 108 kg Intake: Intake, IV Titration 100 50 50 Amount ceFAZolin 1,000 mg In 100 50 50 Sodium Chloride 0.9% 50 ml @ 100 mls/hr IVPB Q8HR [facility] Rx#:[id number] Oral 740 Tube Feeding 540 Output: Urine 825 1175 550 Other: Voiding Method Bedside Commode Bedside Commode Bedside Commode - Exam Physical Exam: Revealed 48-year-old female in no distress, on nasal cannula Head: Atraumatic, normocephalic. HEENT:[Neck is supple.] [No neck masses.] [No thyromegaly.] [No JVD.] Chest: [Diminished breath sound bilaterally, no crackles or rhonchi or wheezes Cardiac Exam: [Normal S1 and S2, no S3 gallop, 2/6 systolic murmur thought the precordium Abdomen: [Obese, Soft, nontender, no megaly, no rebound, no guarding, normal bowel sounds.] Extremities: [No clubbing, 2+ bipedal edema with erythema and superficial ulcerations noted in both lower extremities and chronic venous stasis changes Neurological Exam: Alert and oriented 3 [No focal neurologic deficit.] Psychiatric: Normal mood, affect and normal mental status examination. Skin: Erythematous changes and ulcerations noted in lower extremities bilaterally with 2+ bipedal edema - Labs CBC & Chem 7: 06/12/23 04:26 06/12/23 04:26 Labs: Abnormal Lab Results - Last 24 Hours (Table) 06/11/23 06/12/23 06/12/23 Range/Units 11:39 04:26 04:26 WBC 16.0 H (3.8-10.6) k/uL Hct 48.1 H (34.0-46.0) % MCV 107.4 H (80.0-100.0) fL MCHC 30.9 L (31.0-37.0) g/dL Macrocytosis Marked A Sodium 135 L (137-145) mmol/L Potassium 5.2 H (3.5-5.1) mmol/L Chloride 96 L (98-107) mmol/L BUN 62 H (7-17) mg/dL Creatinine 1.88 H (0.52-1.04) mg/dL Glucose 154 H (74-99) mg/dL Calcium 8.2 L (8.4-10.2) mg/dL Total Protein (PEP) 5.9 L (6.2-8.2) g/dL Albumin (PEP) 3.5 L (3.8-4.9) g/dL Microbiology - Last 24 Hours (Table) 06/11/23 12:00 Gram Stain - Preliminary Leg - Right Wound Culture - Preliminary Gram Neg Bacilli 06/10/23 03:05 Blood Culture - Preliminary Blood 06/10/23 02:50 Blood Culture - Preliminary Blood Assessment and Plan Assessment: Impression: Acute hypoxic respiratory failure, multifactorial Suspect chronic thromboembolic pulmonary hypertension Suspect acute pulmonary embolism Apical cardiac thrombosis Acute alcoholic hepatitis. Acute kidney injury, possible cardiorenal syndrome Nonischemic cardiomyopathy Severe pulmonary hypertension History of aortic thrombosis and renal infarct Acute on chronic kidney disease History of pulmonary nodule History of heparin-induced thrombocytopenia Chronic venous insufficiency with chronic venous stasis and lower extremities, rule out DVT Chronic obstructive pulmonary disease Tobacco dependence syndrome History of alcohol abuse Recommendation: Transfer patient out of the ICU to a monitor bed on selective Continue Arixtra Continue diuretics Continue antibiotics as per ID on the case patient is receiving cefepime. Continue to monitor renal and liver profile, improving in spite of diuretics Continue bronchodilators Considering her cardiac condition, overall prognosis remains extremely poor and guarded We'll continue to follow Time with Patient: Less than 30
[2023-06-12] MEDS: CEFEPIME 2 GM in SODIUM CHLORIDE 0.9% 100 ML IVPB SCH ×2 (13:01→21:25)
[2023-06-12 14:36] LABS: C-ANCA <1:20 Titer (<1:20)
--- NOTE | 2023-06-12 14:47 | CT ---
EXAMINATION TYPE: CT chest wo con DATE OF EXAM: 06/12/2023 COMPARISON: CT chest March 16, 2023 HISTORY: pleural effusion CT DLP: 1694.9 mGycm. Automated Exposure Control for Dose Reduction was Utilized. TECHNIQUE: CT scan of the thorax is performed without IV contrast. FINDINGS: LUNGS: Tiny right-sided pleural effusion on current study. Stable 10 mm posterior right upper lung no dule axial image 20. There is new approximate 4.0 cm focus of organizing consolidation in the right l ower lobe axial image 30. Just superior to this there is 3.2 cm new septated thin-walled cyst. New ri ght middle lobe consolidation/atelectasis axial image 36. Left lung is clear. MEDIASTINUM: Lack of IV contrast is noted to limit evaluation for mediastinal and especially hilar ad enopathy. There are no definitive new Greater than 1 cm mediastinal lymph nodes. Cardiomegaly redemon strated. No pericardial effusion is seen. OTHER: Please refer to same day CT abdomen report for complete details on the upper abdomen. Slight s coliotic curvature in the thoracic spine is redemonstrated. IMPRESSION: New right lower lung organizing consolidation with adjacent pulmonary cyst. There is new right middle lobe consolidation/atelectasis. Correlate for acute infectious process.
--- NOTE | 2023-06-12 14:53 | CT ---
EXAMINATION TYPE: CT renal stones wo con DATE OF EXAM: 06/12/2023 HISTORY: Retained left ureteral stent, history of left ureter calculus CT DLP: 1694.9 mGycm. Automated Exposure Control for Dose Reduction was Utilized. TECHNIQUE: CT scan of the abdomen and pelvis is performed without oral or IV contrast. COMPARISON: NONE FINDINGS: Within the limitations of a non-contrast study, the following observations are made. LUNG BASES: Previous referred to same day CT chest report. LIVER/GB: Trace ascites adjacent to liver anteriorly. Gallbladder appears to have irregular wall cont our suggesting inflammation and/or adjacent ascites. Liver is heterogeneously hypodense relative to s pleen. Single punctate calcification in the liver axial image 58 is presumed benign. PANCREAS: No significant abnormality is seen. SPLEEN: No significant abnormality is seen. ADRENALS: No significant abnormality is seen. KIDNEYS: Right kidney is diminished size with areas of cortical volume loss relative to left kidney. There is a 12 mm calculus in the left renal pelvis as image 62. No left-sided hydronephrosis. There i s catheter fragment coiled within the urinary bladder. BOWEL: No abnormal small or large bowel dilatation. GENITAL ORGANS: No gross abnormality seen. LYMPH NODES: No greater than 1cm abdominal or pelvic lymph nodes are appreciated. OSSEOUS STRUCTURES: No significant abnormality is seen. OTHER: Mild diffuse subcutaneous edema greatest anteriorly is noted. IMPRESSION: 1. Coiled catheter or catheter fragment within the bladder. There is 12 mm calculus in the left renal pelvis. There is no significant left-sided hydronephrosis. Asymmetric volume loss to the right kidne y is noted without hydronephrosis. 2. Fatty infiltrative hepatocellular disease. Trace adjacent ascites. 3. Cannot exclude inflammatory change to the gallbladder in appropriate clinical setting. Correlate c robel.
[2023-06-12 16:01] LABS: Appearance,Urine Clear (Clear); Bilirubin,Urine Negative (Negative); Blood,Urine Trace (Negative); Color,Urine Light Yellow; Glucose,Urine (UA) Negative (Negative); Hyaline Casts,Urine 3 /lpf (0-2); Ketones,Urine Negative (Negative); Leukocyte Esterase,Urine Large (Negative); Mucus,Urine Rare /hpf; Nitrite,Urine Negative (Negative); Protein,Urine 1+ (Negative); RBC,Urine 4 /hpf (0-5); Specific Gravity,Urine 1.013 (1.001-1.035); Squamous Epithelial Cell,Urine 1 /hpf (0-4); Urobilinogen,Urine <2.0 mg/dL (<2.0); WBC,Urine 36 /hpf (0-5)
[2023-06-12 16:19] LABS: Creatinine,Urine Random 63.9 mg/dL; Protein/Creatinine Ratio,Urine 0.861
[2023-06-12 18:16] LABS: Gamma Globulin 0.74 g/dL (0.70-1.50)
[2023-06-12] MEDS ORDERED: ACETAMINOPHEN TAB 325 MG TAB PO PRN (19:19)
--- NOTE | 2023-06-12 22:04 | P.CONS ---
History of Present Illness - Reason for Consult Consult date: 06/12/23 Cellulitis leg Requesting physician: Wilbert Cody - Chief Complaint Increasing shortness of breath and lower extremity swelling x days - History of Present Illness Patient is a 48-year female past medical history of significant for COPD heart failure hypertension NH PE and renal disease patient presented to hospital on 06/10/2023 for evaluation of lower extremity swelling and pain that apparently has been getting worse for about a week before presentation to the hospital patient complaining of increasing swelling to the left lower extremity did have some superficial ulceration with some drainage patient was describing the pain to be moderate to severe without any radiation and no foul-smelling drainage or high-grade fever on presentation to the hospital patient was mildly hypothermic subsequently did have a normal temperature tachycardic mildly hypotensive and hypoxic requiring supplemental oxygen patient did have white count 12.7 that is up to 16,000, BUN/creatinine has been elevated though trending down procalcitonin 0.24 urine has been mildly positive serum alcohol is 48 influenza RSV COVID testing was negative patient did have a venous Doppler positive for DVT to the left leg and the patient has been managed by primary pulmonary cardiology services patient did have a cultures obtained from the left leg patient was started on cefazolin infectious disease was consulted for further management of antibiotic therapy, patient also complaining of shortness of breath on minimal exertion even at rest he also have a cough mild to moderate intensity not bringing up any sputum no chest pain some nausea but no vomiting no abdominal pain no diarrhea Review of Systems Positive point and negatives has been mentioned in the HPI, complete review of systems was performed and all other systems are negative Past Medical History Past Medical History: Heart Failure, COPD, Hypertension, Myocardial Infarction (NH), Pneumonia, Pulmonary Embolus (PE), Renal Disease Additional Past Medical History / Comment(s): Hx aortic thrombosis with right kidney damage, 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 , See [facility] Last Myocardial Infarction Date:: january 2023? 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 yrs ago MDRO Source:: on her chin Past Surgical History: Bladder Surgery Additional Past Surgical History / Comment(s): VAGINAL REJUVINATION, BLADDER LIFT Past Anesthesia/Blood Transfusion Reactions: Previous Problems w/ Anesthesia Additional Past Anesthesia/Blood Transfusion Reaction / Comm: STATES BREATHING DIFFICULTY Smoking Status: Current every day smoker Medications and Allergies Home Medications Medication Instructions Recorded Confirmed Type Bumetanide [BUMEX] 2 mg PO DAILY 02/12/23 06/10/23 History Buprenorphine/Naloxone 8Mg/2Mg 1 film SUBLINGUAL BID 02/12/23 06/10/23 History [Suboxone 8-2Mg Film] Metoprolol Succinate (ER) [Toprol 50 mg PO DAILY 02/12/23 06/10/23 History XL] lisinopriL [Zestril] 40 mg PO DAILY 02/12/23 06/10/23 History Magnesium Oxide [Mag-Ox] 400 mg PO DAILY #90 tablet 02/13/23 06/10/23 Rx Spironolactone [Aldactone] 50 mg PO DAILY #90 tab 02/13/23 06/10/23 Rx Albuterol Sulfate [Albuterol 2 puff PO RT-Q4H PRN 06/10/23 06/10/23 History Sulfate Hfa] Bumetanide [BUMEX] 2 mg PO DAILY 06/10/23 06/10/23 History Naloxone HCl 4 mg NS DIRECTED PRN 06/10/23 06/10/23 History Apixaban [Eliquis] 2.5 mg PO BID #60 tab 06/20/23 Rx Benzonatate [Tessalon Perles] 200 mg PO TID #60 cap 06/20/23 Rx Budesonide-Formot 160-4.5 Mcg 2 puff INHALATION RT-BID #1 each 06/20/23 Rx [Symbicort 160-4.5 Mcg Inhaler] Furosemide [Lasix] 40 mg PO BID #60 tablet 06/20/23 Rx Ipratropium-Albuterol Nebulize 3 ml INHALATION RT-QID #120 each 06/20/23 Rx [Duoneb 0.5 mg-3 mg/3 ml Soln] Midodrine [ProAmatine] 5 mg PO AC-BID #60 tab 06/20/23 Rx Nicotine 21Mg/24Hr Patch [Habitrol] 1 patch TRANSDERM DAILY #30 patch 06/20/23 Rx Pantoprazole [Protonix] 40 mg PO AC-BID #60 tab 06/20/23 Rx Thiamine [Vitamin B-1] 100 mg PO DAILY #30 tab 06/20/23 Rx Allergies Allergy/AdvReac Type Severity Reaction Status Date / Time Sulfa (Sulfonamide Allergy Severe Anaphylaxis Verified 06/10/23 07:32 Antibiotics) bee venom protein (honey bee) Allergy Unknown Swelling Verified 06/10/23 07:23 propranolol Allergy Unknown Itching Verified 06/10/23 07:23 heparin Allergy Unknown Verified 06/10/23 12:43 Physical Exam Vitals: Vital Signs Temp Pulse Pulse Pulse Resp BP BP 06/12/23 20:00 98.1 F 116 H 20 101/61 06/12/23 19:59 112 H 06/12/23 19:46 112 H 06/12/23 15:41 98.1 F 115 H 24 98/57 06/12/23 15:00 113 H 06/12/23 14:00 112 H 22 06/12/23 13:00 108 H 20 06/12/23 12:00 98 F 107 H 18 114/72 06/12/23 11:57 105 H 06/12/23 11:45 106 H 06/12/23 11:00 109 H 06/12/23 10:00 110 H 24 86/73 06/12/23 09:00 108 H 30 H 06/12/23 08:28 110 H 06/12/23 08:15 110 H 06/12/23 08:00 98.5 F 110 H 22 102/92 06/12/23 07:00 107 H 30 H 115/68 06/12/23 06:00 109 H 26 H 101/66 06/12/23 05:00 107 H 7 L 109/68 06/12/23 04:00 98 F 112 H 25 H 113/100 06/12/23 03:30 104 H 06/12/23 03:20 104 H 06/12/23 03:00 108 H 31 H 101/81 06/12/23 02:00 104 H 16 95/66 06/12/23 01:00 101 H 36 H 100/68 06/12/23 00:00 97.8 F 101 H 23 99/73 06/11/23 23:00 109 H 33 H 111/75 06/11/23 22:16 111 H 18 111/75 06/11/23 22:00 111 H 18 111/75 Pulse Ox 06/12/23 20:00 89 L 06/12/23 19:59 06/12/23 19:46 06/12/23 15:41 92 L 06/12/23 15:00 06/12/23 14:00 89 L 06/12/23 13:00 93 L 06/12/23 12:00 90 L 06/12/23 11:57 06/12/23 11:45 06/12/23 11:00 90 L 06/12/23 10:00 90 L 06/12/23 09:00 93 L 06/12/23 08:28 06/12/23 08:15 06/12/23 08:00 93 L 06/12/23 07:00 86 L 06/12/23 06:00 84 L 06/12/23 05:00 92 L 06/12/23 04:00 89 L 06/12/23 03:30 06/12/23 03:20 06/12/23 03:00 90 L 06/12/23 02:00 94 L 06/12/23 01:00 91 L 06/12/23 00:00 93 L 06/11/23 23:00 92 L 06/11/23 22:16 91 L 06/11/23 22:00 93 L Intake and Output 06/12/23 06/12/23 06/12/23 06:59 14:59 22:59 Intake Total 290 200 Output Total 525 950 150 Balance -235 -750 -150 Intake: Intake, IV Titration 50 150 Amount Cefepime 2 gm In Sodium 100 Chloride 0.9% 100 ml @ 25 mls/hr IVPB Q12HR [facility] Rx #:[id number] ceFAZolin 1,000 mg In 50 50 Sodium Chloride 0.9% 50 ml @ 100 mls/hr IVPB Q8HR [facility] Rx#:[id number] Oral 50 Tube Feeding 240 Output: Urine 525 950 150 Other: Voiding Method Bedside Commode Bedside Commode Weight 108 kg GENERAL DESCRIPTION: Middle-aged male up in bed, no distress. No tachypnea or accessory muscle of respiration use. HEENT: Shows Pallor , no scleral icterus. Oral mucous membrane is dry. No p haryngeal erythema or thrush NECK: Trachea central, no thyromegaly. LUNGS: Unlabored breathing. Coarse breath sounds bilaterally HEART: S1, S2, regular rate and rhythm. No loud murmur ABDOMEN: Soft, no tenderness , guarding or rigidity, no organomegaly EXTREMITIES: Bilateral lower extremity swelling with superficial ulceration to the left lower extremity with surrounding redness SKIN: No rash, no masses palpable. NEUROLOGICAL: The patient is awake, alert, oriented x3, mood and affect normal. Results CBC & Chem 7: 06/19/23 09:21 06/19/23 09:21 Labs: Abnormal Lab Results - Last 24 Hours (Table) 06/11/23 06/12/23 06/12/23 Range/Units 11:39 04:26 04:26 WBC 16.0 H (3.8-10.6) k/uL Hct 48.1 H (34.0-46.0) % MCV 107.4 H (80.0-100.0) fL MCHC 30.9 L (31.0-37.0) g/dL Macrocytosis Marked A Sodium 135 L (137-145) mmol/L Potassium 5.2 H (3.5-5.1) mmol/L Chloride 96 L (98-107) mmol/L BUN 62 H (7-17) mg/dL Creatinine 1.88 H (0.52-1.04) mg/dL Glucose 154 H (74-99) mg/dL Calcium 8.2 L (8.4-10.2) mg/dL Psalg-5-Kyatfdtws 0.57 H (0.10-0.40) g/dL Urine Protein (Negative) Urine Blood (Negative) Ur Leukocyte Esterase (Negative) Urine WBC (0-5) /hpf Hyaline Casts (0-2) /lpf Urine Mucus (None) /hpf 06/12/23 Range/Units 15:37 WBC (3.8-10.6) k/uL Hct (34.0-46.0) % MCV (80.0-100.0) fL MCHC (31.0-37.0) g/dL Macrocytosis Sodium (137-145) mmol/L Potassium (3.5-5.1) mmol/L Chloride (98-107) mmol/L BUN (7-17) mg/dL Creatinine (0.52-1.04) mg/dL Glucose (74-99) mg/dL Calcium (8.4-10.2) mg/dL Dvmvx-9-Tdejpaxbf (0.10-0.40) g/dL Urine Protein 1+ H (Negative) Urine Blood Trace H (Negative) Ur Leukocyte Esterase Large H (Negative) Urine WBC 36 H (0-5) /hpf Hyaline Casts 3 H (0-2) /lpf Urine Mucus Rare H (None) /hpf Microbiology - Last 24 Hours (Table) 06/10/23 03:05 Blood Culture - Preliminary Blood 06/10/23 02:50 Blood Culture - Preliminary Blood 06/11/23 12:00 Gram Stain - Preliminary Leg - Right Wound Culture - Preliminary Gram Neg Bacilli Assessment and Plan (1) Left leg cellulitis Status: Acute Code(s): L03.116 - CELLULITIS OF LEFT LOWER LIMB SNOMED Code(s): 14142091721406138 (2) Wound of left leg Status: Acute Code(s): S81.802A - UNSPECIFIED OPEN WOUND, LEFT LOWER LEG, INITIAL ENCOUNTER SNOMED Code(s): 716707096 Plan: 1patient presented hospital with increasing shortness of breath lower extremity swelling which is multifactorial in this patient who did have a history of CHF a lso with evidence of DVT to the left lower extremity and some superficial ulceration likely component of venous stasis ulceration and concerning for possible secondary cellulitis 2-local cultures currently growing gram-negative bacilli with ID sensitivities pending 3-discontinue cefazolin 4-start the patient on cefepime 2 g every 12 5-local wound care with dry Aquacel silver dressing and Kerlix change every 48 hour avoid Robbie wrap because of the DVT in that leg We will follow on clinical condition and cultures to further adjust medication if needed Thank you for this consultation we will follow the patient along with you Dictation was produced using [employer] dictation software. please excuse any grammatical, word or spelling errors. Time with Patient: Greater than 30
[2023-06-13] MEDS: IPRATROPIUM-ALBUTEROL 3 ML NEB INHALATION PRN ×2 (00:47→04:24)
[2023-06-13 04:24] LABS: HCT 45.6 % (34.0-46.0); HGB 14.5 gm/dL (11.4-16.0); Hypochromasia Moderate; MCH 34.2 pg (25.0-35.0); MCHC 31.8 g/dL (31.0-37.0); MCV 107.6 fL (80.0-100.0); Macrocytosis Marked; Platelet Count 161 k/uL (150-450); RBC 4.24 m/uL (3.80-5.40); RDW 15.6 % (11.5-15.5); WBC 20.9 k/uL (3.8-10.6)
[2023-06-13] MEDS: HYDROmorphone 1 MG/ML 1 ML SYRINGE IVP PRN ×4 (04:37→20:21)
[2023-06-13 04:41] LABS: Anti-DNA, DS unit <1.0 IU/mL; DNA Double-Stranded Negative (Negative)
[2023-06-13 04:42] LABS: ALT 346 U/L (4-34); AST 137 U/L (14-36); African American GFR (CKD) 37 (>60 ml/min/1.73 sqM); Anion Gap 11 mmol/L; Blood Urea Nitrogen 66 mg/dL (7-17); Calcium 8.2 mg/dL (8.4-10.2); Carbon Dioxide 27 mmol/L (22-30); Chloride 96 mmol/L (98-107); Glucose 117 mg/dL (74-99); Non-African American GFR(CKD) 32 (>60 ml/min/1.73 sqM); Potassium 5.7 mmol/L (3.5-5.1); Sodium 134 mmol/L (137-145)
[2023-06-13 06:22] LABS: Hepatitis A Antibody IgM Nonreactive; Hepatitis B Core IgM Nonreactive; Hepatitis B Surface Antigen Nonreactive; Hepatitis C IgG Antibody Nonreactive
[2023-06-13] MEDS: PANTOPRAZOLE 40 MG TABLET PO SCH ×2 (06:37→17:11)
--- NOTE | 2023-06-13 07:26 | PN ---
PROGRESS NOTE 48-year-old white female. O2 saturation is 92% on 6 L, which has improved from last night. Temp 98.1, pulse is 115, respiratory rate 20 to 24. White count 16.0 macrocytosis, suspect she has some alcohol withdrawal going on, possibly add some thiamine. Sodium 135, potassium 5.2, BUN of 62, creatinine is 1.88 with improved renal function, GFR is now 28 to 31, now it is stage 3b. Sugars in mid 100s. Urine shows a large amount of leukocyte esterase, white cells. Cultures pending. However, were all negative. ASSESSMENT: 1. Pulmonary embolism. 2. Hypertension. 3. Qdbmu-xs-[id number] diastolic heart failure with possible systolic heart failure combination. 4. Right-sided heart failure. 5. Irregular gallbladder, possible inflammatory gallbladder. 6. Mucositis in the right kidney. 7. 12 mm calculus in the left renal pelvis. 8. No hydronephrosis. 9. No bowel dilation. 10.She has fatty liver. 11.Trace ascites. 12.Coil catheter fragment in the gallbladder, calculus, not blocking. IMAGING STUDIES: CT of her chest: New right lower lung organizing consolidation with adjacent pulmonary cysts. Suspect a new right middle lobe consolidative atelectasis versus pneumonia, possible aspiration pneumonia versus blood clot from pulmonary embolism versus pneumonia in the right lung. PROGNOSIS: Guarded. PLAN: Continue with treatment. Treat for pneumonia also. MMODL / IJN: [id number] /
[2023-06-13] MEDS: IPRATROPIUM-ALBUTEROL 3 ML NEB INHALATION SCH ×4 (07:37→19:57)
[2023-06-13] MEDS: MAGNESIUM OXIDE 400 MG TAB PO SCH (08:09)
[2023-06-13] MEDS: NICOTINE 21MG/24HR PATCH TRANSDERM SCH (08:09)
[2023-06-13] MEDS: FUROSEMIDE 10 MG/ML 4 ML VIAL IV SCH ×2 (08:09→20:21)
[2023-06-13] MEDS: CEFEPIME 2 GM in SODIUM CHLORIDE 0.9% 100 ML IVPB SCH ×2 (08:09→20:39)
[2023-06-13] MEDS: FONDAPARINUX 7.5 MG/0.6 ML SYRINGE SQ SCH (08:50)
[2023-06-13] MEDS: SODIUM ZIRCONIUM CYCLOSILICATE 10 GM PACKET PO SCH ×2 (08:51→20:20)
--- NOTE | 2023-06-13 08:59 | P.PN ---
Subjective Progress Note Date: 06/13/23 No acute overnight events. Reviewed her CT the stent was completely coiled in the bladder, there is also evidence of 1.2 cm left-sided renal pelvis stone. No significant calcification seen around the stent Objective - Vital Signs Vital signs: Vital Signs Temp 99.6 F 06/13/23 08:00 Pulse 99 06/13/23 08:00 Resp 32 H 06/13/23 08:00 BP 113/60 06/13/23 08:00 Pulse Ox 89 L 06/13/23 08:00 FiO2 Intake & Output 06/12/23 06/13/23 06/13/23 18:59 06:59 18:59 Intake Total 200 250 300 Output Total 950 450 Balance -750 -200 300 Weight 108 kg 109.5 kg Intake: Intake, IV Titration 150 100 Amount Cefepime 2 gm In Sodium 100 100 Chloride 0.9% 100 ml @ 25 mls/hr IVPB Q12HR [facility] Rx #:[id number] ceFAZolin 1,000 mg In 50 Sodium Chloride 0.9% 50 ml @ 100 mls/hr IVPB Q8HR [facility] Rx#:[id number] Oral 50 150 300 Output: Urine 950 450 Other: Voiding Method Bedside Commode Bedside Commode # Voids 1 - Constitutional General appearance: Present: no acute distress - Gastrointestinal General gastrointestinal: Present: soft. Absent: tenderness - Psychiatric Psychiatric: Present: A&O x's 3 - Labs CBC & Chem 7: 06/13/23 03:31 06/13/23 03:31 Labs: Abnormal Lab Results - Last 24 Hours (Table) 06/11/23 06/12/23 06/13/23 Range/Units 11:39 15:37 03:31 WBC 20.9 H (3.8-10.6) k/uL MCV 107.6 H (80.0-100.0) fL RDW 15.6 H (11.5-15.5) % Macrocytosis Marked A Sodium (137-145) mmol/L Potassium (3.5-5.1) mmol/L Chloride (98-107) mmol/L BUN (7-17) mg/dL Creatinine (0.52-1.04) mg/dL Glucose (74-99) mg/dL Calcium (8.4-10.2) mg/dL AST (14-36) U/L ALT (4-34) U/L Vntdu-7-Nfuosjgbm 0.57 H (0.10-0.40) g/dL Urine Protein 1+ H (Negative) Urine Blood Trace H (Negative) Ur Leukocyte Esterase Large H (Negative) Urine WBC 36 H (0-5) /hpf Hyaline Casts 3 H (0-2) /lpf Urine Mucus Rare H (None) /hpf 06/13/23 Range/Units 03:31 WBC (3.8-10.6) k/uL MCV (80.0-100.0) fL RDW (11.5-15.5) % Macrocytosis Sodium 134 L (137-145) mmol/L Potassium 5.7 H (3.5-5.1) mmol/L Chloride 96 L (98-107) mmol/L BUN 66 H (7-17) mg/dL Creatinine 1.84 H (0.52-1.04) mg/dL Glucose 117 H (74-99) mg/dL Calcium 8.2 L (8.4-10.2) mg/dL AST 137 H (14-36) U/L ALT 346 H (4-34) U/L Uvvnt-8-Alqepkwjl (0.10-0.40) g/dL Urine Protein (Negative) Urine Blood (Negative) Ur Leukocyte Esterase (Negative) Urine WBC (0-5) /hpf Hyaline Casts (0-2) /lpf Urine Mucus (None) /hpf Microbiology - Last 24 Hours (Table) 06/10/23 03:05 Blood Culture - Preliminary Blood 06/10/23 02:50 Blood Culture - Preliminary Blood 06/11/23 12:00 Gram Stain - Preliminary Leg - Right Wound Culture - Preliminary Gram Neg Bacilli Assessment and Plan Assessment: 48-year-old female with history of solitary kidney and retained left ureteral stent since 2020. Stent was placed at [facility]. Had a prolonged discussion with her that stent should stay longer than 3 months, most likely there is significant amount of calcification on the stent given that it's been present for more than [address] abdomen and pelvis showed that the stent is completely coiled up in the bladder, no evidence of stent in the ureter or the kidney. Additionally there is also evidence of 1.2 cm left sided renal pelvis stone. At discussed with her eventually she will require that stent in the bladder to be removed and the renal pelvis stone to be addressed. Discussed option she can either follow up with us or she'll follow back up with her urologist at [facility]. Emphasized to her this will need to be addressed, if stent stays in for prolonged time then there is potential she will develop a bladder stone. Additionally given that she has only one functioning kidney the left renal pelvis stone will also need to be addressed -F/U as an outpatient to address the renal pelvis stone, and the stent within the bladder
--- NOTE | 2023-06-13 09:43 | XR ---
EXAMINATION TYPE: XR chest 1V portable DATE OF EXAM: 06/13/2023 Comparison: 06/12/2023 Clinical History: 48 year-old female lung status, shortness of breath, ICU follow-up Findings: Worsening focal bibasilar opacities. Possible trace right pleural effusion now present. Impression: Worsening focal bibasilar opacities and possible trace right pleural effusion now present.
--- NOTE | 2023-06-13 11:12 | P.PN ---
Subjective Patient is seen in follow-up for acute kidney injury. Renal function stable. On IV Lasix. On 6 L nasal cannula. Denies chest pain. Oral intake fair. Feels tired. Vital signs are stable. General: No acute distress. HEENT: Head exam is unremarkable. On nasal cannula. LUNGS: No audible rhonchi or wheezes. HEART: Rate and Rhythm are regular. ABDOMEN: Nontender, obese. EXTREMITITES: 2+ edema. Chronic changes noted. Objective - Vital Signs Vital signs: Vital Signs Temp 99.6 F 06/13/23 08:00 Pulse 99 06/13/23 08:00 Resp 32 H 06/13/23 08:00 BP 113/60 06/13/23 08:00 Pulse Ox 89 L 06/13/23 08:00 FiO2 Intake & Output 06/12/23 06/13/23 06/13/23 18:59 06:59 18:59 Intake Total 200 250 300 Output Total 950 450 Balance -750 -200 300 Weight 108 kg 109.5 kg Intake: Intake, IV Titration 150 100 Amount Cefepime 2 gm In Sodium 100 100 Chloride 0.9% 100 ml @ 25 mls/hr IVPB Q12HR [facility] Rx #:[id number] ceFAZolin 1,000 mg In 50 Sodium Chloride 0.9% 50 ml @ 100 mls/hr IVPB Q8HR [facility] Rx#:[id number] Oral 50 150 300 Output: Urine 950 450 Other: Voiding Method Bedside Commode Bedside Commode Bedside Commode # Voids 1 - Labs CBC & Chem 7: 06/13/23 03:31 06/13/23 03:31 Labs: Abnormal Lab Results - Last 24 Hours (Table) 06/11/23 06/12/23 06/13/23 Range/Units 11:39 15:37 03:31 WBC 20.9 H (3.8-10.6) k/uL MCV 107.6 H (80.0-100.0) fL RDW 15.6 H (11.5-15.5) % Macrocytosis Marked A Sodium (137-145) mmol/L Potassium (3.5-5.1) mmol/L Chloride (98-107) mmol/L BUN (7-17) mg/dL Creatinine (0.52-1.04) mg/dL Glucose (74-99) mg/dL Calcium (8.4-10.2) mg/dL AST (14-36) U/L ALT (4-34) U/L Pvmxn-6-Ydbzsfemb 0.57 H (0.10-0.40) g/dL Urine Protein 1+ H (Negative) Urine Blood Trace H (Negative) Ur Leukocyte Esterase Large H (Negative) Urine WBC 36 H (0-5) /hpf Hyaline Casts 3 H (0-2) /lpf Urine Mucus Rare H (None) /hpf 06/13/23 Range/Units 03:31 WBC (3.8-10.6) k/uL MCV (80.0-100.0) fL RDW (11.5-15.5) % Macrocytosis Sodium 134 L (137-145) mmol/L Potassium 5.7 H (3.5-5.1) mmol/L Chloride 96 L (98-107) mmol/L BUN 66 H (7-17) mg/dL Creatinine 1.84 H (0.52-1.04) mg/dL Glucose 117 H (74-99) mg/dL Calcium 8.2 L (8.4-10.2) mg/dL AST 137 H (14-36) U/L ALT 346 H (4-34) U/L Esbho-9-Xyijwyazz (0.10-0.40) g/dL Urine Protein (Negative) Urine Blood (Negative) Ur Leukocyte Esterase (Negative) Urine WBC (0-5) /hpf Hyaline Casts (0-2) /lpf Urine Mucus (None) /hpf Microbiology - Last 24 Hours (Table) 06/10/23 03:05 Blood Culture - Preliminary Blood 06/10/23 02:50 Blood Culture - Preliminary Blood 06/11/23 12:00 Gram Stain - Preliminary Leg - Right Wound Culture - Preliminary Gram Neg Bacilli Assessment and Plan Plan: Assessment: 1. Acute kidney injury secondary to ATN secondary to cardiorenal syndrome. Cre atinine stable at 1.84 today. Creatinine in March 2023 was 0.63. No hydronephrosis noted on kidney ultrasound/CT. Right kidney small in size. UA with 1+ protein and 4 RBCs. UPC 0.86. Serologies negative. 2. Acute on chronic systolic CHF with ejection fraction of 40-45%. 3. Hyperkalemia secondary to acute kidney injury, lisinopril and spironolactone. 4. Volume overload. Improving with diuresis. 5. History of nephrolithiasis with left ureteral stent. Urology following. 6. Chronic pulmonary emboli with probable apical thrombus. 7. Acute on chronic right-sided heart failure. Preserved EF noted on echocardiogram. 8. History of aortic thrombus with renal infarct. Right kidney atrophic. 9. Left-sided renal stone. Ureteral stent coiled up in the bladder. Urology following. Plan: Maintain IV Lasix. Renal diet and 1500 mL fluid restriction. Continue to hold lisinopril and Aldactone. Add Lokelama 10 g twice a day Continue to monitor renal function and urine output. Avoid nephrotoxins. Repeat potassium level at noon.
--- NOTE | 2023-06-13 12:18 | P.PN ---
Subjective Progress Note Date: 06/13/23 Principal diagnosis: Acute hypoxic referral failure, multifactorial This is a 48-year-old female with a very complicated medical history, patient is known to have history of hypertension, aortic thrombosis, chronic kidney disease, COPD, medical noncompliance, history of pulmonary embolism and pulmonary hypertension, in addition to all of this the patient continues to smoke on a regular basis, and continues to drink alcohol on a daily basis. 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 In January 07, patient was hospitalized at [facility] with elevated troponin, and congestive heart failure as well as elevated RVSP of 51, apparently she had a VQ scan at the time and she was noted to have chronic thromboembolic pulmonary hypertension but apparently the patient left AMA. Patient also had nonischemic cardiomyopathy and supposedly on diuretics but again her compliance is question. This time the patient came into the ER with mostly worsening shortness of breath with any activity, has been extremely tired and fatigued, and she has been noticing increased swelling in her lower extremities. We evaluated the patient in the ER, and reviewed the results of her echocardiogram showing severe enlargement of the right ventricle with hypokinesis and probable apical thrombus and severe pulmonary hypertension. VQ scan showed high probability for pulmonary embolism. Patient was also noted to have elevated BNP level, and significantly elevated liver enzymes. Serum alcohol was 48, looking back at a previous CT angiogram of the chest on 03/17/2023, there was clearly evidence of a right middle lobe nodule, and I'm not certain if this is being followed by anyone on outpatient basis. Her CT angiogram on 03/17 showed no evidence of pulmonary embolism. This time her VQ scan is showing high probability for pulmonary embolism. Again the main issue here is the fact that the patient had previous history of heparin-induced thrombocytopenia and she had issues with Xarelto and I believe considering her liver enzymes, are get to back in May not be safe to use. Hence hematology consultation is very appropriate at this point Patient was reevaluated today on 06/11/23, a is in the ICU, doing much better today, remains on nasal cannula, continues to have significant erythema and ulceration noted in the lower extremities especially in the left calf region. Blood pressure remains marginal, patient has good urine output, patient is on 3 L nasal cannula and her O2 saturation is ranging between 88-93. Does not seem to be in any distress. WBC count is 15.4 hemoglobin 15.3 basic metabolic profile is normal BUN is 57 creatinine 2.0, pro-calcitonin is 0.24. Patient is on bronchodilators, diuretics, I added cefepime today, patient is also on Arixtra , tolerating that quite well. Reevaluated today on 06/12/23, remains in the ICU, patient is feeling better, breathing easier, seems to be tolerating Arixtra quite well, she is not requiring any pressors, her mean arterial pressure is normal and remained normal all along, did not require pressors and I plan to transfer the patient out of the ICU to a cardiac floor. Patient remains on Lasix at 40 mg IV push every 12 hours, remains on antibiotics/cefepime as per infectious disease on the case, and considering that the patient is not requiring much of an ICU care, I will transfer the patient to a cardiac bed. WBC count today 16 hemoglobin 14.9 basic metabolic profile is normal creatinine is improving down to 1.88 from 2.0 yesterday Reevaluated today on 06/13/23, remains in the ICU as an overflow, a is steadily improving, feeling better overall, remains on 6 L nasal cannula, CT of the chest from yesterday showed an area of consolidation and cystlike lesion in the right lower lobe which definitely needs outpatient follow-up. According to the patient she had previous history of lung nodule that had workup at [facility] and she had biopsy of her lung few years back. And she was told the findings were benign. However I believe those findings on the CT of the chest are relatively new. And she will definitely need outpatient follow-up. In the meantime the patient is doing well from the pulmonary perspective less cough and less shortness of breath, she is on cefepime for her cellulitis and questionable pneumonia, she is also on Lasix 40 mg twice a day. And she is on Arixtra. WBC count today is 20.9 hemoglobin 14.5 basic metabolic profile is normal however her potassium is 5.7 BUN is 66 creatinine 1.84 liver enzymes remain a bit elevated Objective - Vital Signs Vital signs: Vital Signs Temp 98.3 F 06/13/23 11:59 Pulse 106 H 06/13/23 11:59 Resp 32 H 06/13/23 11:59 BP 94/61 06/13/23 11:59 Pulse Ox 92 L 06/13/23 11:59 FiO2 Intake & Output 06/12/23 06/13/23 06/13/23 18:59 06:59 18:59 Intake Total 200 250 820 Output Total 950 450 450 Balance -750 -200 370 Weight 108 kg 109.5 kg Intake: Intake, IV Titration 150 100 100 Amount Cefepime 2 gm In Sodium 100 100 100 Chloride 0.9% 100 ml @ 25 mls/hr IVPB Q12HR [facility] Rx #:[id number] ceFAZolin 1,000 mg In 50 Sodium Chloride 0.9% 50 ml @ 100 mls/hr IVPB Q8HR [facility] Rx#:[id number] Oral 50 150 720 Output: Urine 950 450 450 Other: Voiding Method Bedside Commode Bedside Commode Bedside Commode # Voids 1 - Exam Physical Exam: Revealed 48-year-old female in no distress, on 6 L nasal cannula Head: Atraumatic, normocephalic. HEENT:[Neck is supple.] [No neck masses.] [No thyromegaly.] [No JVD.] Chest: [Diminished breath sound bilaterally, clear otherwise. Cardiac Exam: [Normal S1 and S2, no S3 gallop, 2/6 systolic murmur thought the precordium Abdomen: [Obese, Soft, nontender, no megaly, no rebound, no guarding, normal bowel sounds.] Extremities: [No clubbing, 2+ bipedal edema with erythema and superficial ulcerations noted in both lower extremities and chronic venous stasis changes Neurological Exam: Alert and oriented 3 [No focal neurologic deficit.] Psychiatric: Normal mood, affect and normal mental status examination. Skin: Erythematous changes and ulcerations noted in lower extremities bilaterally with 2+ bipedal edema - Labs CBC & Chem 7: 06/13/23 03:31 06/13/23 03:31 Labs: Abnormal Lab Results - Last 24 Hours (Table) 06/11/23 06/12/23 06/13/23 Range/Units 11:39 15:37 03:31 WBC 20.9 H (3.8-10.6) k/uL MCV 107.6 H (80.0-100.0) fL RDW 15.6 H (11.5-15.5) % Macrocytosis Marked A Sodium (137-145) mmol/L Potassium (3.5-5.1) mmol/L Chloride (98-107) mmol/L BUN (7-17) mg/dL Creatinine (0.52-1.04) mg/dL Glucose (74-99) mg/dL Calcium (8.4-10.2) mg/dL AST (14-36) U/L ALT (4-34) U/L Gdmnr-3-Bmvktuqzv 0.57 H (0.10-0.40) g/dL Urine Protein 1+ H (Negative) Urine Blood Trace H (Negative) Ur Leukocyte Esterase Large H (Negative) Urine WBC 36 H (0-5) /hpf Hyaline Casts 3 H (0-2) /lpf Urine Mucus Rare H (None) /hpf 06/13/23 Range/Units 03:31 WBC (3.8-10.6) k/uL MCV (80.0-100.0) fL RDW (11.5-15.5) % Macrocytosis Sodium 134 L (137-145) mmol/L Potassium 5.7 H (3.5-5.1) mmol/L Chloride 96 L (98-107) mmol/L BUN 66 H (7-17) mg/dL Creatinine 1.84 H (0.52-1.04) mg/dL Glucose 117 H (74-99) mg/dL Calcium 8.2 L (8.4-10.2) mg/dL AST 137 H (14-36) U/L ALT 346 H (4-34) U/L Biokw-8-Azwlmtgzz (0.10-0.40) g/dL Urine Protein (Negative) Urine Blood (Negative) Ur Leukocyte Esterase (Negative) Urine WBC (0-5) /hpf Hyaline Casts (0-2) /lpf Urine Mucus (None) /hpf Microbiology - Last 24 Hours (Table) 06/10/23 03:05 Blood Culture - Preliminary Blood 06/10/23 02:50 Blood Culture - Preliminary Blood 06/11/23 12:00 Gram Stain - Preliminary Leg - Right Wound Culture - Preliminary Gram Neg Bacilli Assessment and Plan Assessment: Impression: Acute hypoxic respiratory failure, multifactorial Suspect chronic thromboembolic pulmonary hypertension Suspect acute pulmonary embolism Apical cardiac thrombosis Acute alcoholic hepatitis. Acute kidney injury, possible cardiorenal syndrome Nonischemic cardiomyopathy Severe pulmonary hypertension History of aortic thrombosis and renal infarct Acute on chronic kidney disease History of pulmonary nodule History of heparin-induced thrombocytopenia Chronic venous insufficiency with chronic venous stasis and lower extremities, rule out DVT Chronic obstructive pulmonary disease Tobacco dependence syndrome History of alcohol abuse Masslike consolidation on CT of the chest with adjacent cystic lesion in the right lower lobe needs follow-up on outpatient basis Recommendation: Continue present supportive care measures Discussed with the patient her computed tomography scan findings of the chest, and the patient stated that she had previous workup for her abnormal nodules in the lung at [facility]. And she was reassured. Continue Arixtra Continue diuretics Continue antibiotics as per ID on the case patient is receiving cefepime. Continue to monitor renal and liver profile, and electrolytes. Continue bronchodilators Transfer to a monitor selective care bed once a bed becomes available We'll continue to follow Time with Patient: Less than 30
[2023-06-13] MEDS: THIAMINE 100 MG TAB PO SCH (12:27)
[2023-06-13] MEDS: BUDESONIDE 1 MG/2 ML NEBU INHALATION SCH (19:57)
--- NOTE | 2023-06-13 21:32 | PN ---
PROGRESS NOTE Acute kidney injury. Renal function is stable. She has had diuresis. She is on 6 L nasal cannula. Oral intake is fair. Feels tired and fatigued. Renal function stable. She is on IV Lasix. Vital signs are blood pressure 138/60, temp 99.6, pulse 99, respiratory rate 20 to 25. BUN is 60 to , creatinine 1.84. White count is 20.9. Gram-negative bacilli in the leg wound. UTI, culture pending. ASSESSMENT: 1. Acute on chronic systolic and diastolic heart failure. 2. Pulmonary hypertension. 3. Severe hyperkalemia. 4. Volume overload. 5. Diastolic heart failure. 6. Chronic pulmonary emboli and deep venous thrombosis of the leg. 7. Ureteral stent coiled up in the bladder. Urology following. They are going to hold her lisinopril, Aldactone, fluid restriction. 8. Hyperkalemia. Avoid nephrotoxins. Repeat potassium level at noon. PROGNOSIS: Guarded. Continue breathing treatment, IV antibiotics for probable pneumonia and UTI and cellulitis of the legs. MMODL / IJN: [id number] /
[2023-06-14] MEDS: IPRATROPIUM-ALBUTEROL 3 ML NEB INHALATION PRN (00:11)
[2023-06-14] MEDS: HYDROmorphone 1 MG/ML 1 ML SYRINGE IVP PRN ×4 (00:18→20:58)
[2023-06-14 04:46] LABS: HCT 44.8 % (34.0-46.0); Hypochromasia Marked; MCHC 31.2 g/dL (31.0-37.0); MCV 108.9 fL (80.0-100.0); Mean Platelet Volume 10.1; Platelet Count 161 k/uL (150-450); RBC 4.11 m/uL (3.80-5.40); RDW 15.2 % (11.5-15.5); WBC 17.1 k/uL (3.8-10.6)
[2023-06-14 04:56] LABS: African American GFR (CKD) 41 (>60 ml/min/1.73 sqM); Anion Gap 10 mmol/L; Blood Urea Nitrogen 59 mg/dL (7-17); Calcium 8.6 mg/dL (8.4-10.2); Carbon Dioxide 33 mmol/L (22-30); Chloride 93 mmol/L (98-107); Glucose 144 mg/dL (74-99); Non-African American GFR(CKD) 35 (>60 ml/min/1.73 sqM); Sodium 136 mmol/L (137-145)
[2023-06-14 05:07] LABS: Macrocytosis Marked
[2023-06-14] MEDS: PANTOPRAZOLE 40 MG TABLET PO SCH ×2 (06:58→17:05)
[2023-06-14] MEDS: BUDESONIDE 1 MG/2 ML NEBU INHALATION SCH ×2 (07:36→19:56)
[2023-06-14] MEDS: IPRATROPIUM-ALBUTEROL 3 ML NEB INHALATION SCH ×4 (07:36→19:56)
[2023-06-14] MEDS: NICOTINE 21MG/24HR PATCH TRANSDERM SCH (08:35)
[2023-06-14] MEDS: CEFEPIME 2 GM in SODIUM CHLORIDE 0.9% 100 ML IVPB SCH ×2 (08:35→20:51)
[2023-06-14] MEDS: SODIUM ZIRCONIUM CYCLOSILICATE 10 GM PACKET PO SCH ×2 (08:35→20:51)
[2023-06-14] MEDS: MAGNESIUM OXIDE 400 MG TAB PO SCH (08:35)
[2023-06-14] MEDS: THIAMINE 100 MG TAB PO SCH (08:35)
[2023-06-14] MEDS: FUROSEMIDE 10 MG/ML 4 ML VIAL IV SCH ×2 (08:35→20:51)
[2023-06-14] MEDS: FONDAPARINUX 7.5 MG/0.6 ML SYRINGE SQ SCH (08:59)
--- NOTE | 2023-06-14 09:36 | XR ---
EXAMINATION TYPE: XR chest 1V portable DATE OF EXAM: 06/14/2023 Comparison: 06/13/2023 Clinical History: 48-year-old female ICU follow-up, lung status Findings: Right heart margin remains obscured by adjacent pleural parenchymal opacity. Extensive patchy and con fluent opacity right lower lung with trace pleural effusion persists. Impression: Ongoing extensive airspace disease right lower lung with trace effusion.
--- NOTE | 2023-06-14 10:31 | P.PN ---
Subjective Patient is seen in follow-up for acute kidney injury. Renal function better. On IV Lasix. On 6 L nasal cannula. Denies chest pain. Oral intake fair. No changes overnight. Vital signs are stable. General: No acute distress. HEENT: Head exam is unremarkable. On nasal cannula. LUNGS: No audible rhonchi or wheezes. HEART: Rate and Rhythm are regular. ABDOMEN: Nontender, obese. EXTREMITITES: 2+ edema. Chronic changes noted. Objective - Vital Signs Vital signs: Vital Signs Temp 99.1 F 06/14/23 08:00 Pulse 106 H 06/14/23 08:00 Resp 20 06/14/23 08:00 BP 84/69 06/14/23 08:00 Pulse Ox 91 L 06/14/23 08:00 FiO2 Intake & Output 06/13/23 06/14/23 06/14/23 18:59 06:59 18:59 Intake Total 1270 1000 450 Output Total 700 1400 200 Balance 570 -400 250 Intake: Intake, IV Titration 100 100 100 Amount Cefepime 2 gm In Sodium 100 100 100 Chloride 0.9% 100 ml @ 25 mls/hr IVPB Q12HR [facility] Rx #:[id number] Oral 1170 900 350 Output: Urine 700 1400 200 Other: Voiding Method Bedside Commode Bedside Commode # Voids 1 - Labs CBC & Chem 7: 06/14/23 04:22 06/14/23 04:22 Labs: Abnormal Lab Results - Last 24 Hours (Table) 06/13/23 06/14/23 06/14/23 Range/Units 12:31 04:22 04:22 WBC 17.1 H (3.8-10.6) k/uL MCV 108.9 H (80.0-100.0) fL Macrocytosis Marked A Sodium 136 L (137-145) mmol/L Potassium 5.2 H (3.5-5.1) mmol/L Chloride 93 L (98-107) mmol/L Carbon Dioxide 33 H (22-30) mmol/L BUN 59 H (7-17) mg/dL Creatinine 1.68 H (0.52-1.04) mg/dL Glucose 144 H (74-99) mg/dL Microbiology - Last 24 Hours (Table) 06/11/23 12:00 Gram Stain - Preliminary Leg - Right Wound Culture - Preliminary Gram Neg Bacilli 06/10/23 03:05 Blood Culture - Preliminary Blood 06/10/23 02:50 Blood Culture - Preliminary Blood Assessment and Plan Plan: Assessment: 1. Acute kidney injury secondary to ATN secondary to cardiorenal syndrome. Creatinine improved to 1.68 today. Creatinine in March 2023 was 0.63. No hydronephrosis noted on kidney ultrasound/CT. Right kidney small in size. UA with 1+ protein and 4 RBCs. UPC 0.86. Serologies negative. 2. Acute on chronic systolic CHF with ejection fraction of 40-45%. 3. Hyperkalemia secondary to acute kidney injury, lisinopril and spironolactone. Better. On Lokelma. 4. Volume overload. Improving with diuresis. 5. History of nephrolithiasis with left ureteral stent. Urology following. 6. Chronic pulmonary emboli with probable apical thrombus. 7. Acute on chronic right-sided heart failure. Preserved EF noted on echocardiogram. 8. History of aortic thrombus with renal infarct. Right kidney atrophic. 9. Left-sided renal stone. Ureteral stent coiled up in the bladder. Urology following. Plan: Maintain IV Lasix. Renal diet and 1500 mL fluid restriction. Continue to hold lisinopril and Aldactone. Maintain Lokelma for now. Continue to monitor renal function and urine output. Avoid nephrotoxins.
[2023-06-14] MEDS ORDERED: IBUPROFEN 600 MG TAB PO PRN (10:55)
[2023-06-14] MEDS: ACETAMINOPHEN TAB 325 MG TAB PO PRN ×2 (11:12→18:43)
--- NOTE | 2023-06-14 11:38 | P.PN ---
Subjective Progress Note Date: 06/14/23 Principal diagnosis: Acute hypoxic referral failure, multifactorial This is a 48-year-old female with a very complicated medical history, patient is known to have history of hypertension, aortic thrombosis, chronic kidney disease, COPD, medical noncompliance, history of pulmonary embolism and pulmonary hypertension, in addition to all of this the patient continues to smoke on a regular basis, and continues to drink alcohol on a daily basis. 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 In January 07, patient was hospitalized at [facility] with elevated troponin, and congestive heart failure as well as elevated RVSP of 51, apparently she had a VQ scan at the time and she was noted to have chronic thromboembolic pulmonary hypertension but apparently the patient left AMA. Patient also had nonischemic cardiomyopathy and supposedly on diuretics but again her compliance is question. This time the patient came into the ER with mostly worsening shortness of breath with any activity, has been extremely tired and fatigued, and she has been noticing increased swelling in her lower extremities. We evaluated the patient in the ER, and reviewed the results of her echocardiogram showing severe enlargement of the right ventricle with hypokinesis and probable apical thrombus and severe pulmonary hypertension. VQ scan showed high probability for pulmonary embolism. Patient was also noted to have elevated BNP level, and significantly elevated liver enzymes. Serum alcohol was 48, looking back at a previous CT angiogram of the chest on 03/17/2023, there was clearly evidence of a right middle lobe nodule, and I'm not certain if this is being followed by anyone on outpatient basis. Her CT angiogram on 03/17 showed no evidence of pulmonary embolism. This time her VQ scan is showing high probability for pulmonary embolism. Again the main issue here is the fact that the patient had previous history of heparin-induced thrombocytopenia and she had issues with Xarelto and I believe considering her liver enzymes, are get to back in May not be safe to use. Hence hematology consultation is very appropriate at this point Patient was reevaluated today on 06/11/23, a is in the ICU, doing much better today, remains on nasal cannula, continues to have significant erythema and ulceration noted in the lower extremities especially in the left calf region. Blood pressure remains marginal, patient has good urine output, patient is on 3 L nasal cannula and her O2 saturation is ranging between 88-93. Does not seem to be in any distress. WBC count is 15.4 hemoglobin 15.3 basic metabolic profile is normal BUN is 57 creatinine 2.0, pro-calcitonin is 0.24. Patient is on bronchodilators, diuretics, I added cefepime today, patient is also on Arixtra , tolerating that quite well. Reevaluated today on 06/12/23, remains in the ICU, patient is feeling better, breathing easier, seems to be tolerating Arixtra quite well, she is not requiring any pressors, her mean arterial pressure is normal and remained normal all along, did not require pressors and I plan to transfer the patient out of the ICU to a cardiac floor. Patient remains on Lasix at 40 mg IV push every 12 hours, remains on antibiotics/cefepime as per infectious disease on the case, and considering that the patient is not requiring much of an ICU care, I will transfer the patient to a cardiac bed. WBC count today 16 hemoglobin 14.9 basic metabolic profile is normal creatinine is improving down to 1.88 from 2.0 yesterday Reevaluated today on 06/13/23, remains in the ICU as an overflow, a is steadily improving, feeling better overall, remains on 6 L nasal cannula, CT of the chest from yesterday showed an area of consolidation and cystlike lesion in the right lower lobe which definitely needs outpatient follow-up. According to the patient she had previous history of lung nodule that had workup at [facility] and she had biopsy of her lung few years back. And she was told the findings were benign. However I believe those findings on the CT of the chest are relatively new. And she will definitely need outpatient follow-up. In the meantime the patient is doing well from the pulmonary perspective less cough and less shortness of breath, she is on cefepime for her cellulitis and questionable pneumonia, she is also on Lasix 40 mg twice a day. And she is on Arixtra. WBC count today is 20.9 hemoglobin 14.5 basic metabolic profile is normal however her potassium is 5.7 BUN is 66 creatinine 1.84 liver enzymes remain a bit elevated Very today on 06/14/23, remains in the ICU as an overflow, patient remains on Arixtra, cefepime, Lasix 40 mg IV push twice a day, he is also on bronchodilators, and oxygen at 6 L/m. Not much of a change on this patient in the last 24 hours, she is basically about the same, on her chest x-ray there seems to be a new right lower lobe consolidation, and this was also noted on the CT of the chest. It is a masslike consolidation in the right lower lobe, relatively new. Patient has intermittent cough and wheezing continues to have leukocytosis but improving with WBC count of 17.1. Basic metabolic profile is normal renal functioning is a bit better with creatinine coming down from 1.84 down to 1.68. Objective - Vital Signs Vital signs: Vital Signs Temp 99.1 F 06/14/23 08:00 Pulse 106 H 06/14/23 08:00 Resp 20 06/14/23 08:00 BP 84/69 06/14/23 08:00 Pulse Ox 91 L 06/14/23 08:00 FiO2 Intake & Output 06/13/23 06/14/23 06/14/23 18:59 06:59 18:59 Intake Total 1270 1000 450 Output Total 700 1400 200 Balance 570 -400 250 Intake: Intake, IV Titration 100 100 100 Amount Cefepime 2 gm In Sodium 100 100 100 Chloride 0.9% 100 ml @ 25 mls/hr IVPB Q12HR [facility] Rx #:[id number] Oral 1170 900 350 Output: Urine 700 1400 200 Other: Voiding Method Bedside Commode Bedside Commode # Voids 1 - Exam Physical Exam: Revealed 48-year-old female in no distress, on 6 L nasal cannula Head: Atraumatic, normocephalic. HEENT:[Neck is supple.] [No neck masses.] [No thyromegaly.] [No JVD.] Chest: [Diminished breath sound bilaterally, some wheezing on forced expiratory maneuver noted today Cardiac Exam: [Normal S1 and S2, no S3 gallop, 2/6 systolic murmur thought the precordium Abdomen: [Obese, Soft, nontender, no megaly, no rebound, no guarding, normal bowel sounds.] Extremities: [No clubbing, 2+ bipedal edema with erythema and superficial ulcerations noted in both lower extremities and chronic venous stasis changes Neurological Exam: Alert and oriented 3 [No focal neurologic deficit.] Psychiatric: Normal mood, affect and normal mental status examination. Skin: Erythematous changes and ulcerations noted in lower extremities bilaterally with 2+ bipedal edema - Labs CBC & Chem 7: 06/14/23 04:22 06/14/23 04:22 Labs: Abnormal Lab Results - Last 24 Hours (Table) 06/13/23 06/14/23 06/14/23 Range/Units 12:31 04:22 04:22 WBC 17.1 H (3.8-10.6) k/uL MCV 108.9 H (80.0-100.0) fL Macrocytosis Marked A Sodium 136 L (137-145) mmol/L Potassium 5.2 H (3.5-5.1) mmol/L Chloride 93 L (98-107) mmol/L Carbon Dioxide 33 H (22-30) mmol/L BUN 59 H (7-17) mg/dL Creatinine 1.68 H (0.52-1.04) mg/dL Glucose 144 H (74-99) mg/dL Microbiology - Last 24 Hours (Table) 06/11/23 12:00 Gram Stain - Preliminary Leg - Right Wound Culture - Preliminary Gram Neg Bacilli 06/10/23 03:05 Blood Culture - Preliminary Blood 06/10/23 02:50 Blood Culture - Preliminary Blood Assessment and Plan Assessment: Impression: Acute hypoxic respiratory failure, multifactorial Suspect chronic thromboembolic pulmonary hypertension Suspect acute pulmonary embolism Apical cardiac thrombosis Acute alcoholic hepatitis. Acute kidney injury, possible cardiorenal syndrome Nonischemic cardiomyopathy Severe pulmonary hypertension History of aortic thrombosis and renal infarct Acute on chronic kidney disease History of pulmonary nodule History of heparin-induced thrombocytopenia Chronic venous insufficiency with chronic venous stasis and lower extremities, rule out DVT Chronic obstructive pulmonary disease Tobacco dependence syndrome History of alcohol abuse Masslike consolidation on CT of the chest with adjacent cystic lesion in the right lower lobe needs follow-up on outpatient basis Recommendation: Continue present supportive care measures Discussed with the patient her computed tomography scan findings of the chest, must have outpatient follow-up on her abnormal CT of the Continue Arixtra Continue diuretics Continue cefepime. Continue daily labs while on diuretics. Continue bronchodilators Awaiting bed availability on S. We'll continue to follow Time with Patient: Less than 30
[2023-06-14] MEDS: LORazepam 2 MG/ML INJ IV PRN ×2 (12:12→20:58)
[2023-06-14] MEDS ORDERED: IBUPROFEN 600 MG TAB PO SCH (13:00)
--- NOTE | 2023-06-14 16:40 | P.PN ---
Subjective Progress Note Date: 06/13/23 Principal diagnosis: Reason for follow-up is left lower extremity wound and cellulitis Patient is a 48-year-old female with a past medical history significant for COPD heart failure hypertension [place] PE and renal disease patient presented to hospital on 06/10/2023 for evaluation of lower extremity swelling and pain has been diagnosed with a left lower extremity DVT and did have a wound and concern for secondary cellulitis On today's evaluation that is 06/13/2023 patient did have a low-grade fever of 99.8 at midnight the patient is afebrile since then patient is breathing comfortably on 6 L nasal cannula oxygen denies any chest pain no worsening cough or sputum production no abdominal pain or diarrhea pain to the left lower extremity has decreased in intensity. Patient did have white count of 20.9 creatinine 1.84 Objective - Vital Signs Vital signs: Vital Signs Temp 99.1 F 06/13/23 04:00 Pulse 114 H 06/13/23 07:53 Resp 22 06/13/23 04:00 BP 94/57 06/13/23 04:00 Pulse Ox 89 L 06/13/23 04:00 FiO2 Intake & Output 06/12/23 06/13/23 06/13/23 18:59 06:59 18:59 Intake Total 200 250 300 Output Total 950 450 Balance -750 -200 300 Weight 108 kg 109.5 kg Intake: Intake, IV Titration 150 100 Amount Cefepime 2 gm In Sodium 100 100 Chloride 0.9% 100 ml @ 25 mls/hr IVPB Q12HR [facility] Rx #:[id number] ceFAZolin 1,000 mg In 50 Sodium Chloride 0.9% 50 ml @ 100 mls/hr IVPB Q8HR [facility] Rx#:[id number] Oral 50 150 300 Output: Urine 950 450 Other: Voiding Method Bedside Commode Bedside Commode # Voids 1 - Exam GENERAL DESCRIPTION: Middle-aged female up in the bed in bed in no distress RESPIRATORY SYSTEM: Unlabored breathing , coarse breath sounds at bases HEART: S1 S2 regular rate and rhythm , ABDOMEN: Soft , no tenderness EXTREMITIES: Bilateral extremity swelling left leg with wound that is currently dressed - Labs CBC & Chem 7: 06/14/23 04:22 06/14/23 04:22 Labs: Abnormal Lab Results - Last 24 Hours (Table) 06/11/23 06/12/23 06/13/23 Range/Units 11:39 15:37 03:31 WBC 20.9 H (3.8-10.6) k/uL MCV 107.6 H (80.0-100.0) fL RDW 15.6 H (11.5-15.5) % Macrocytosis Marked A Sodium (137-145) mmol/L Potassium (3.5-5.1) mmol/L Chloride (98-107) mmol/L BUN (7-17) mg/dL Creatinine (0.52-1.04) mg/dL Glucose (74-99) mg/dL Calcium (8.4-10.2) mg/dL AST (14-36) U/L ALT (4-34) U/L Nanla-7-Jdixatyus 0.57 H (0.10-0.40) g/dL Urine Protein 1+ H (Negative) Urine Blood Trace H (Negative) Ur Leukocyte Esterase Large H (Negative) Urine WBC 36 H (0-5) /hpf Hyaline Casts 3 H (0-2) /lpf Urine Mucus Rare H (None) /hpf 06/13/23 Range/Units 03:31 WBC (3.8-10.6) k/uL MCV (80.0-100.0) fL RDW (11.5-15.5) % Macrocytosis Sodium 134 L (137-145) mmol/L Potassium 5.7 H (3.5-5.1) mmol/L Chloride 96 L (98-107) mmol/L BUN 66 H (7-17) mg/dL Creatinine 1.84 H (0.52-1.04) mg/dL Glucose 117 H (74-99) mg/dL Calcium 8.2 L (8.4-10.2) mg/dL AST 137 H (14-36) U/L ALT 346 H (4-34) U/L Ooece-1-Psrokzkfa (0.10-0.40) g/dL Urine Protein (Negative) Urine Blood (Negative) Ur Leukocyte Esterase (Negative) Urine WBC (0-5) /hpf Hyaline Casts (0-2) /lpf Urine Mucus (None) /hpf Microbiology - Last 24 Hours (Table) 06/10/23 03:05 Blood Culture - Preliminary Blood 06/10/23 02:50 Blood Culture - Preliminary Blood 06/11/23 12:00 Gram Stain - Preliminary Leg - Right Wound Culture - Preliminary Gram Neg Bacilli Assessment and Plan (1) Wound of left leg Current Visit: Yes Status: Acute Code(s): S81.802A - UNSPECIFIED OPEN WOUND, LEFT LOWER LEG, INITIAL ENCOUNTER SNOMED Code(s): 941490999 (2) Left leg cellulitis Current Visit: Yes Status: Acute Code(s): L03.116 - CELLULITIS OF LEFT LOWER LIMB SNOMED Code(s): 86800252750167457 Plan: 1patient presented hospital with increasing shortness of breath lower extremity swelling which is multifactorial in this patient who did have a history of CHF also with evidence of DVT to the left lower extremity and some superficial ulceration likely component of venous stasis ulceration and concerning for possible secondary cellulitis 2-local cultures currently growing gram-negative bacilli with ID sensitivities pending 3--local wound care with dry Aquacel silver dressing and Kerlix change every 48 hour avoid Robbie wrap because of the DVT in that leg 4patient to continue on cefepime 2 g every 12 hours while waiting for the culture to finalize Dictation was produced using [employer] dictation software. please excuse any grammatical, word or spelling errors. Time with Patient: Less than 30
--- NOTE | 2023-06-14 16:41 | P.PN ---
Subjective Progress Note Date: 06/14/23 Principal diagnosis: Reason for follow-up is left lower extremity wound and cellulitis Patient is a 48-year-old female with a past medical history significant for COPD heart failure hypertension [place] PE and renal disease patient presented to hospital on 06/10/2023 for evaluation of lower extremity swelling and pain has been diagnosed with a left lower extremity DVT and did have a wound and concern for secondary cellulitis On today's evaluation that is 06/14/2023 patient did have a low-grade fever 100.4 at midnight patient is afebrile since then patient is breathing comfortably currently on 5 L nasal cannula oxygen. Denies any chest pain occasional cough no sputum production denies any abdominal pain or diarrhea denies pain to the left lower extremity Patient white count is noted 70.1, creatinine is 1.68 Objective - Vital Signs Vital signs: Vital Signs Temp 98.1 F 06/14/23 11:53 Pulse 100 06/14/23 15:46 Resp 22 06/14/23 11:53 BP 94/63 06/14/23 11:53 Pulse Ox 89 L 06/14/23 11:53 FiO2 Intake & Output 06/13/23 06/14/23 06/14/23 18:59 06:59 18:59 Intake Total 1270 1000 450 Output Total 700 1400 525 Balance 570 -400 -75 Weight 109.4 kg Intake: Intake, IV Titration 100 100 100 Amount Cefepime 2 gm In Sodium 100 100 100 Chloride 0.9% 100 ml @ 25 mls/hr IVPB Q12HR [facility] Rx #:[id number] Oral 1170 900 350 Output: Urine 700 1400 525 Other: Voiding Method Bedside Commode Bedside Commode Bedside Commode # Voids 1 - Exam GENERAL DESCRIPTION: Middle-aged female up in the bed in bed in no distress RESPIRATORY SYSTEM: Unlabored breathing , coarse breath sounds at bases HEART: S1 S2 regular rate and rhythm , ABDOMEN: Soft , no tenderness EXTREMITIES: Bilateral extremity swelling left leg with wound that is currently dressed - Labs CBC & Chem 7: 06/14/23 04:22 06/14/23 04:22 Labs: Abnormal Lab Results - Last 24 Hours (Table) 06/14/23 06/14/23 Range/Units 04:22 04:22 WBC 17.1 H (3.8-10.6) k/uL MCV 108.9 H (80.0-100.0) fL Macrocytosis Marked A Sodium 136 L (137-145) mmol/L Chloride 93 L (98-107) mmol/L Carbon Dioxide 33 H (22-30) mmol/L BUN 59 H (7-17) mg/dL Creatinine 1.68 H (0.52-1.04) mg/dL Glucose 144 H (74-99) mg/dL Microbiology - Last 24 Hours (Table) 06/11/23 12:00 Gram Stain - Final Leg - Right Wound Culture - Final Acinetobacter janie/haemol Pseudomonas fluorescens/putida 06/10/23 03:05 Blood Culture - Preliminary Blood 06/10/23 02:50 Blood Culture - Preliminary Blood Assessment and Plan (1) Left leg cellulitis Current Visit: Yes Status: Acute Code(s): L03.116 - CELLULITIS OF LEFT LOWER LIMB SNOMED Code(s): 84964720628088504 (2) Wound of left leg Current Visit: Yes Status: Acute Code(s): S81.802A - UNSPECIFIED OPEN WOUND, LEFT LOWER LEG, INITIAL ENCOUNTER SNOMED Code(s): 589045783 Plan: 1patient presented hospital with increasing shortness of breath lower extremity swelling which is multifactorial in this patient who did have a history of CHF also with evidence of DVT to the left lower extremity and some superficial ulceration likely component of venous stasis ulceration and concerning for possible secondary cellulitis 2-local cultures currently growing gram-negative bacilli with ID sensitivities pending 3--local wound care with dry Aquacel silver dressing and Kerlix change every 48 hour avoid Robbie wrap because of the DVT in that leg 4patient local culture has been finalized with Acinetobacter and Pseudomonas that is sensitive to cefepime, 5-patient to continue on cefepime 2 g every 12 hours and monitor clinical course closely Dictation was produced using [employer] dictation software. please excuse any grammatical, word or spelling errors. Time with Patient: Less than 30
[2023-06-15] MEDS: ACETAMINOPHEN TAB 325 MG TAB PO PRN ×2 (04:14→21:50)
[2023-06-15 04:30] LABS: HCT 40.9 % (34.0-46.0); HGB 12.9 gm/dL (11.4-16.0); Hypochromasia Moderate; MCH 33.7 pg (25.0-35.0); MCHC 31.6 g/dL (31.0-37.0); MCV 106.9 fL (80.0-100.0); Macrocytosis Marked; Mean Platelet Volume 11.1; Platelet Count 132 k/uL (150-450); RBC 3.83 m/uL (3.80-5.40); RDW 15.4 % (11.5-15.5); WBC 11.2 k/uL (3.8-10.6)
[2023-06-15 05:29] LABS: ALT 146 U/L (4-34); AST 40 U/L (14-36); African American GFR (CKD) 36 (>60 ml/min/1.73 sqM); Albumin 2.8 g/dL (3.5-5.0); Alkaline Phosphatase 148 U/L (38-126); Anion Gap 11 mmol/L; Blood Urea Nitrogen 68 mg/dL (7-17); Calcium 8.2 mg/dL (8.4-10.2); Carbon Dioxide 29 mmol/L (22-30); Chloride 97 mmol/L (98-107); Glucose 152 mg/dL (74-99); Non-African American GFR(CKD) 31 (>60 ml/min/1.73 sqM); Potassium 3.8 mmol/L (3.5-5.1); Sodium 137 mmol/L (137-145); Total Bilirubin 2.2 mg/dL (0.2-1.3); Total Protein 5.6 g/dL (6.3-8.2)
[2023-06-15] MEDS: HYDROmorphone 1 MG/ML 1 ML SYRINGE IVP PRN ×2 (05:54→19:51)
[2023-06-15] MEDS: PANTOPRAZOLE 40 MG TABLET PO SCH ×2 (06:52→17:24)
--- NOTE | 2023-06-15 06:52 | P.PN ---
Subjective Progress Note Date: 06/15/23 Principal diagnosis: Shortness of breath. This is a 48-year-old female with a very complicated medical history, patient is known to have history of hypertension, aortic thrombosis, chronic kidney disease, COPD, medical noncompliance, history of pulmonary embolism and pulmonary hypertension, in addition to all of this the patient continues to smoke on a regular basis, and continues to drink alcohol on a daily basis. 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 In January 07, patient was hospitalized at [facility] with elevated troponin, and congestive heart failure as well as elevated RVSP of 51, apparently she had a VQ scan at the time and she was noted to have chronic thromboembolic pulmonary hypertension but apparently the patient left AMA. Patient also had nonischemic cardiomyopathy and supposedly on diuretics but again her compliance is question. This time the patient came into the ER with mostly worsening shortness of breath with any activity, has been extremely tired and fatigued, and she has been noticing increased swelling in her lower extremities. We evaluated the patient in the ER, and reviewed the results of her echocardiogram showing severe enlargement of the right ventricle with hypokinesis and probable apical thrombus and severe pu lmonary hypertension. VQ scan showed high probability for pulmonary embolism. Patient was also noted to have elevated BNP level, and significantly elevated liver enzymes. Serum alcohol was 48, looking back at a previous CT angiogram of the chest on 03/17/2023, there was clearly evidence of a right middle lobe nodule, and I'm not certain if this is being followed by anyone on outpatient basis. Her CT angiogram on 03/17 showed no evidence of pulmonary embolism. This time her VQ scan is showing high probability for pulmonary embolism. Again the main issue here is the fact that the patient had previous history of heparin-induced thrombocytopenia and she had issues with Xarelto and I believe considering her liver enzymes, are get to back in May not be safe to use. Hence hematology consultation is very appropriate at this point Patient was reevaluated today on 06/11/23, a is in the ICU, doing much better today, remains on nasal cannula, continues to have significant erythema and ulceration noted in the lower extremities especially in the left calf region. Blood pressure remains marginal, patient has good urine output, patient is on 3 L nasal cannula and her O2 saturation is ranging between 88-93. Does not seem to be in any distress. WBC count is 15.4 hemoglobin 15.3 basic metabolic profile is normal BUN is 57 creatinine 2.0, pro-calcitonin is 0.24. Patient is on bronchodilators, diuretics, I added cefepime today, patient is also on Arixtra , tolerating that quite well. Reevaluated today on 06/12/23, remains in the ICU, patient is feeling better, breathing easier, seems to be tolerating Arixtra quite well, she is not requiring any pressors, her mean arterial pressure is normal and remained normal all along, did not require pressors and I plan to transfer the patient out of the ICU to a cardiac floor. Patient remains on Lasix at 40 mg IV push every 12 hours, remains on antibiotics/cefepime as per infectious disease on the case, and considering that the patient is not requiring much of an ICU care, I will transfer the patient to a cardiac bed. WBC count today 16 hemoglobin 14.9 basic metabolic profile is normal creatinine is improving down to 1.88 from 2.0 yes terday Reevaluated today on 06/13/23, remains in the ICU as an overflow, a is steadily improving, feeling better overall, remains on 6 L nasal cannula, CT of the chest from yesterday showed an area of consolidation and cystlike lesion in the right lower lobe which definitely needs outpatient follow-up. According to the patient she had previous history of lung nodule that had workup at [facility] and she had biopsy of her lung few years back. And she was told the findings were benign. However I believe those findings on the CT of the chest are relatively new. And she will definitely need outpatient follow-up. In the meantime the patient is doing well from the pulmonary perspective less cough and less shortness of breath, she is on cefepime for her cellulitis and questionable pneumonia, she is also on Lasix 40 mg twice a day. And she is on Arixtra. WBC count today is 20.9 hemoglobin 14.5 basic metabolic profile is normal however her potassium is 5.7 BUN is 66 creatinine 1.84 liver enzymes remain a bit elevated Very today on 06/14/23, remains in the ICU as an overflow, patient remains on Arixtra, cefepime, Lasix 40 mg IV push twice a day, he is also on bronchodilators, and oxygen at 6 L/m. Not much of a change on this patient in the last 24 hours, she is basically about the same, on her chest x-ray there seems to be a new right lower lobe consolidation, and this was also noted on the CT of the chest. It is a masslike consolidation in the right lower lobe, relatively new. Patient has intermittent cough and wheezing continues to have leukocytosis but improving with WBC count of 17.1. Basic metabolic profile is normal renal functioning is a bit better with creatinine coming down from 1.84 down to 1.68. Progress note dated 06/15/2023. This is a 48-year-old female who was admitted back on June 10. She came to the intensive care unit on June 10. She was admitted with a diagnosis of shortness of breath, heart failure, COPD, and pulmonary embolism. Currently, she is an overflow patient, awaiting a bed on . She's on 4 L of oxygen by nasal cannula. She's not receiving any IV fluids. She's feeling much better. She sitting at the side of the bed. White count 11.2, hemoglobin 12.9, hematocrit 40.9, and platelet count was 132,000. Sodium 137, potassium 3.8, chlorides 97, CO2 29, BUN 68, creatinine 1.87. Wound cultures of the leg, on the right, show evidence of Acinetobacter and Pseudomonas. Chest x-ray from yesterday shows airspace disease, right lower lobe. Objective - Vital Signs Vital signs: Vital Signs Temp 97.7 F 06/15/23 04:00 Pulse 86 06/15/23 04:00 Resp 15 06/15/23 04:00 BP 99/65 06/15/23 05:45 Pulse Ox 95 06/15/23 04:00 FiO2 Intake & Output 06/14/23 06/14/23 06/15/23 06:59 18:59 06:59 Intake Total 1000 670 320 Output Total 1400 875 Balance -400 -205 320 Weight 109.4 kg 110.2 kg Intake: Intake, IV Titration 100 100 100 Amount Cefepime 2 gm In Sodium 100 100 100 Chloride 0.9% 100 ml @ 25 mls/hr IVPB Q12HR [facility] Rx #:[id number] Oral 900 570 220 Output: Urine 1400 875 Other: Voiding Method Bedside Commode Bedside Commode Bedside Commode # Bowel Movements 1 - Exam No acute distress, oriented 3. No overt respiratory distress. No audible wheezing or use of accessory muscles. HEENT examination is grossly unremarkable. Currently on 4 L nasal cannula. Neck supple. Full range of motion. No adenopathy thyromegaly or neck vein distention. Cardiovascular examination reveals regular rhythm rate. S1-S2 normal. No S3 or S4. No discernible murmur noted. Heart sounds are distant. Heart rate 86 bpm. Lungs reveal mild scattered rhonchi. No wheezes. No crackles. Breath sounds equal bilaterally. Saturations 95% on 4 L. Abdomen soft bowel sounds are heard. No masses or tenderness. Extremities are intact. No cyanosis clubbing or edema. Skin is without rash or lesion. Neurologic examination is brief but nonfocal. - Labs CBC & Chem 7: 06/15/23 04:04 06/15/23 04:04 Labs: Abnormal Lab Results - Last 24 Hours (Table) 06/15/23 06/15/23 Range/Units 04:04 04:04 WBC 11.2 H (3.8-10.6) k/uL MCV 106.9 H (80.0-100.0) fL Plt Count 132 L (150-450) k/uL Macrocytosis Marked A Chloride 97 L (98-107) mmol/L BUN 68 H (7-17) mg/dL Creatinine 1.87 H (0.52-1.04) mg/dL Glucose 152 H (74-99) mg/dL Calcium 8.2 L (8.4-10.2) mg/dL Total Bilirubin 2.2 H (0.2-1.3) mg/dL AST 40 H (14-36) U/L ALT 146 H (4-34) U/L Alkaline Phosphatase 148 H (38-126) U/L Total Protein 5.6 L (6.3-8.2) g/dL Albumin 2.8 L (3.5-5.0) g/dL Microbiology - Last 24 Hours (Table) 06/13/23 15:20 Urine Culture - Final Urine,Clean Catch 06/11/23 12:00 Gram Stain - Final Leg - Right Wound Culture - Final Acinetobacter janie/haemol Pseudomonas fluorescens/putida Assessment and Plan Assessment: Acute hypoxemic respiratory failure, multifactorial. Possible chronic thromboembolic pulmonary hypertension. Acute pulmonary embolism. Acute alcoholic hepatitis. Acute kidney injury. Nonischemic cardiomyopathy. Severe pulmonary hypertension. History of aortic thromboses and renal infarct. Acute on chronic kidney disease. History of pulmonary nodule. History of heparin-induced thrombocytopenia. Chronic venous insufficiency chronic venous stasis, and lower extremity infection. COPD. Obesity. Tobacco dependence syndrome. History of alcohol abuse. Wound, right leg, secondary to Acinetobacter and Pseudomonas. Plan: Plan dated 06/15/2023. The patient is seen today in room 253, intensive care unit. The patient will need outpatient evaluation of an abnormality seen on computed tomography scan of the chest, in the right lower lobe area. The patient will continue on diuretics, cefepime, bronchodilators, and Arixtra. Additional recommendations and suggestions are forthcoming. The patient is potential overflow patient to 3 S. Additional recommendations and suggestions are forthcoming. We will continue to follow the patient make recommendations along the way. Prognosis is guarded. Time with Patient: Greater than 30
[2023-06-15] MEDS: IPRATROPIUM-ALBUTEROL 3 ML NEB INHALATION SCH ×4 (07:52→21:11)
[2023-06-15] MEDS: SYMBICORT 160-4.5 MCG INHALER INHALATION SCH ×2 (07:52→21:11)
[2023-06-15] MEDS: LORazepam 2 MG/ML INJ IV PRN (09:28)
[2023-06-15] MEDS: CEFEPIME 2 GM in SODIUM CHLORIDE 0.9% 100 ML IVPB SCH ×2 (09:28→19:51)
[2023-06-15] MEDS: FUROSEMIDE 10 MG/ML 4 ML VIAL IV SCH ×2 (09:28→19:51)
[2023-06-15] MEDS: NICOTINE 21MG/24HR PATCH TRANSDERM SCH (09:28)
[2023-06-15] MEDS: MAGNESIUM OXIDE 400 MG TAB PO SCH (09:28)
[2023-06-15] MEDS: FONDAPARINUX 7.5 MG/0.6 ML SYRINGE SQ SCH (09:28)
[2023-06-15] MEDS: THIAMINE 100 MG TAB PO SCH (09:29)
[2023-06-15 11:55] VITALS: BMI 45.8
--- NOTE | 2023-06-15 12:14 | P.PN ---
Subjective Progress Note Date: 06/15/23 Principal diagnosis: PE Pt was seen in the ICU at today's visit. Patient breathing is labored. Reporting hemoptysis. Sputum appears dark pink/red in color, no clots noted. Hemoglobin stable at 12.9. Platelets 132,000. Objective - Vital Signs Vital signs: Vital Signs Temp 98.0 F 06/15/23 08:00 Pulse 89 06/15/23 08:00 Resp 17 06/15/23 08:00 BP 111/88 06/15/23 08:00 Pulse Ox 95 06/15/23 04:00 FiO2 Intake & Output 06/14/23 06/15/23 06/15/23 18:59 06:59 18:59 Intake Total 670 320 350 Output Total 875 400 Balance -205 320 -50 Weight 109.4 kg 110.2 kg 110.2 kg Intake: IV 100 Cefepime 2 gm In Sodium 100 Chloride 0.9% 100 ml @ 25 mls/hr IVPB Q12HR [facility] Rx #:[id number] Intake, IV Titration 100 100 Amount Cefepime 2 gm In Sodium 100 100 Chloride 0.9% 100 ml @ 25 mls/hr IVPB Q12HR [facility] Rx #:[id number] Oral 570 220 250 Output: Urine 875 400 Other: Voiding Method Bedside Commode Bedside Commode Bedside Commode # Voids 1 # Bowel Movements 1 1 - Constitutional General appearance: Present: mild distress - EENT Eyes: Present: anicteric sclerae, EOMI ENT: Present: hearing grossly normal - Respiratory Details: breathing mildly labored - Integumentary Integumentary: Absent: cyanotic - Musculoskeletal Musculoskeletal: Present: generalized weakness - Psychiatric Psychiatric: Present: A&O x's 3 - Labs CBC & Chem 7: 06/15/23 04:04 06/15/23 04:04 Labs: Abnormal Lab Results - Last 24 Hours (Table) 06/15/23 06/15/23 Range/Units 04:04 04:04 WBC 11.2 H (3.8-10.6) k/uL MCV 106.9 H (80.0-100.0) fL Plt Count 132 L (150-450) k/uL Macrocytosis Marked A Chloride 97 L (98-107) mmol/L BUN 68 H (7-17) mg/dL Creatinine 1.87 H (0.52-1.04) mg/dL Glucose 152 H (74-99) mg/dL Calcium 8.2 L (8.4-10.2) mg/dL Total Bilirubin 2.2 H (0.2-1.3) mg/dL AST 40 H (14-36) U/L ALT 146 H (4-34) U/L Alkaline Phosphatase 148 H (38-126) U/L Total Protein 5.6 L (6.3-8.2) g/dL Albumin 2.8 L (3.5-5.0) g/dL Microbiology - Last 24 Hours (Table) 06/13/23 15:20 Urine Culture - Final Urine,Clean Catch 06/11/23 12:00 Gram Stain - Final Leg - Right Wound Culture - Final Acinetobacter janie/haemol Pseudomonas fluorescens/putida Assessment and Plan (1) Acute exacerbation of chronic obstructive pulmonary disease Current Visit: Yes Status: Acute Priority: High Code(s): J44.1 - CHRONIC OBSTRUCTIVE PULMONARY DISEASE W (ACUTE) EXACERBATION SNOMED Code(s): 261101744 (2) Pulmonary emboli Current Visit: Yes Status: Acute Priority: High Code(s): I26.99 - OTHER PULMONARY EMBOLISM WITHOUT ACUTE COR PULMONALE SNOMED Code(s): 57275986 Plan: PE: -Case discussed with Dr. Leti Warner and Dr. Dunne. VQ scan revealed high probability for PE. Due to hx of HIT and noted transaminitis, Arixstra was recommended for anticoagulation with close monitoring of renal function, hgb and for acute bleeding -Reporting hemoptysis over the last 2 days. Sputum appears dark pink/red in color, no clots noted. Hemoglobin stable at 12.9. Platelets 132,000. Creatinine 1.87 -Continue to monitor symptoms and CBC.
--- NOTE | 2023-06-15 12:50 | P.PN ---
Subjective Patient is seen for follow-up for acute kidney injury. She is currently being diuresed. Motrin was noted on med list which was discontinued this morning. Urine output at 2.1 L for 24 hours. Systolic blood pressure remains in the 90s. Objective - Vital Signs Vital signs: Vital Signs Temp 98.0 F 06/15/23 08:00 Pulse 89 06/15/23 08:00 Resp 17 06/15/23 08:00 BP 111/88 06/15/23 08:00 Pulse Ox 95 06/15/23 04:00 FiO2 Intake & Output 06/14/23 06/15/23 06/15/23 18:59 06:59 18:59 Intake Total 670 320 350 Output Total 875 400 Balance -205 320 -50 Weight 109.4 kg 110.2 kg 110.2 kg Intake: IV 100 Cefepime 2 gm In Sodium 100 Chloride 0.9% 100 ml @ 25 mls/hr IVPB Q12HR [facility] Rx #:[id number] Intake, IV Titration 100 100 Amount Cefepime 2 gm In Sodium 100 100 Chloride 0.9% 100 ml @ 25 mls/hr IVPB Q12HR [facility] Rx #:[id number] Oral 570 220 250 Output: Urine 875 400 Other: Voiding Method Bedside Commode Bedside Commode Bedside Commode # Voids 1 # Bowel Movements 1 1 - Exam Patient is awake, comfortable, no acute distress. 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 - Labs CBC & Chem 7: 06/15/23 04:04 06/15/23 04:04 Labs: Abnormal Lab Results - Last 24 Hours (Table) 06/15/23 06/15/23 Range/Units 04:04 04:04 WBC 11.2 H (3.8-10.6) k/uL MCV 106.9 H (80.0-100.0) fL Plt Count 132 L (150-450) k/uL Macrocytosis Marked A Chloride 97 L (98-107) mmol/L BUN 68 H (7-17) mg/dL Creatinine 1.87 H (0.52-1.04) mg/dL Glucose 152 H (74-99) mg/dL Calcium 8.2 L (8.4-10.2) mg/dL Total Bilirubin 2.2 H (0.2-1.3) mg/dL AST 40 H (14-36) U/L ALT 146 H (4-34) U/L Alkaline Phosphatase 148 H (38-126) U/L Total Protein 5.6 L (6.3-8.2) g/dL Albumin 2.8 L (3.5-5.0) g/dL Microbiology - Last 24 Hours (Table) 06/13/23 15:20 Urine Culture - Final Urine,Clean Catch 06/11/23 12:00 Gram Stain - Final Leg - Right Wound Culture - Final Acinetobacter janie/haemol Pseudomonas fluorescens/putida Assessment and Plan Assessment: 1. Acute kidney injury secondary to ATN secondary to cardiorenal syndrome. Creatinine at 1.8 today. Motrin was discontinued. I will add midodrine as blood pressure remains low. Creatinine in March 2023 was 0.63. No hydronephrosis noted on kidney ultrasound/CT. Right kidney small in size. UA with 1+ protein and 4 RBCs. UPC 0.86. Serologies negative. 2. Acute on chronic systolic CHF with ejection fraction of 40-45%. 3. Hyperkalemia secondary to acute kidney injury, lisinopril and spironolactone. Better. On Lokelma. 4. Volume overload. Improving with diuresis. 5. History of nephrolithiasis with left ureteral stent. Urology following. 6. Chronic pulmonary emboli with probable apical thrombus. 7. Acute on chronic right-sided heart failure. Preserved EF noted on echocardiogram. 8. History of aortic thrombus with renal infarct. Right kidney atrophic. 9. Left-sided renal stone. Ureteral stent coiled up in the bladder. Urology following. Plan: Continue with current dose of IV Lasix Maintain off of NSAIDs Add midodrine
[2023-06-15] MEDS: MIDODRINE 5 MG TAB PO SCH (17:24)
[2023-06-16] MEDS: HYDROmorphone 1 MG/ML 1 ML SYRINGE IVP PRN ×3 (00:27→21:25)
[2023-06-16] MEDS: LORazepam 2 MG/ML INJ IV PRN (00:28)
[2023-06-16] MEDS: MIDODRINE 5 MG TAB PO SCH ×2 (06:36→18:08)
[2023-06-16] MEDS: PANTOPRAZOLE 40 MG TABLET PO SCH ×2 (06:36→18:08)
--- NOTE | 2023-06-16 08:26 | PN ---
PROGRESS NOTE SUBJECTIVE: The patient remains on cefepime for cellulitis of the legs and drug-resistant UTI. Medications being adjusted. She stopped her Dilaudid. She has cut down her Klonopin as she is more lethargic. She brought in her home medicines. Continue on current treatment. in color. No clots. Hemoglobin is 12.9 and platelets 132,000. OBJECTIVE: VITAL SIGNS: Temperature 98, pulse 89, respiratory rate 16 to 18, blood pressure 111/88, O2 saturation 98%. LUNGS: Scattered rhonchi. CARDIOVASCULAR: S1. HEMATOLOGY: Negative for Homans. PSYCH: Fair mood and affect. EXTREMITIES: 2+ edema. ASSESSMENT: 1. Pulmonary emboli. 2. Deep venous thrombosis. 3. Chronic obstructive pulmonary disease. 4. Diastolic heart failure. 5. Lymphedema. 6. Coronary artery disease. Continue current treatments. Prognosis is guarded. Please see further orders. MMODL / IJN: [id number] /
[2023-06-16] MEDS: FUROSEMIDE 10 MG/ML 4 ML VIAL IV SCH ×2 (08:44→21:24)
[2023-06-16] MEDS: THIAMINE 100 MG TAB PO SCH (08:44)
[2023-06-16] MEDS: ACETAMINOPHEN TAB 325 MG TAB PO PRN (08:44)
[2023-06-16] MEDS: MAGNESIUM OXIDE 400 MG TAB PO SCH (08:44)
[2023-06-16] MEDS: FONDAPARINUX 7.5 MG/0.6 ML SYRINGE SQ SCH (08:44)
[2023-06-16] MEDS: NICOTINE 21MG/24HR PATCH TRANSDERM SCH (08:45)
[2023-06-16] MEDS: CEFEPIME 2 GM in SODIUM CHLORIDE 0.9% 100 ML IVPB SCH ×2 (08:45→21:25)
[2023-06-16] MEDS: SYMBICORT 160-4.5 MCG INHALER INHALATION SCH ×2 (09:20→21:12)
[2023-06-16] MEDS: IPRATROPIUM-ALBUTEROL 3 ML NEB INHALATION SCH ×4 (09:20→21:10)
--- NOTE | 2023-06-16 11:30 | P.PN ---
Subjective Patient is seen for follow-up for acute kidney injury. She is currently being diuresed. Motrin was noted on med list which has been discontinued. Urine output at 2.3 L for 24 hours. Systolic blood pressure slightly better with midodrine. Patient is sitting on the edge of the bed bent over and falling asleep. Objective - Vital Signs Vital signs: Vital Signs Temp 98.3 F 06/16/23 04:55 Pulse 97 06/16/23 04:55 Resp 20 06/16/23 04:55 BP 110/67 06/16/23 06:37 Pulse Ox 95 06/16/23 04:55 FiO2 Intake & Output 06/15/23 06/16/23 06/16/23 18:59 06:59 18:59 Intake Total 350 Output Total 1000 1350 Balance -650 -1350 Weight 110.2 kg Intake: IV 100 Cefepime 2 gm In Sodium 100 Chloride 0.9% 100 ml @ 25 mls/hr IVPB Q12HR [facility] Rx #:[id number] Oral 250 Output: Urine 1000 1350 Other: Voiding Method Bedside Commode Bedside Commode # Voids 1 # Bowel Movements 1 - Exam Patient is awake, falls back to sleep repeatedly while sitting at the edge of the bed, no acute distress. Examination of the heart S1 and S2 Examination of the lungs shows decreased breath sounds at the bases Abdomen is soft obese nontender Examination lower extremities shows edema 2-3+ bilaterally [employer] PROFESSOR exam grossly intact - Labs CBC & Chem 7: 06/15/23 04:04 06/15/23 04:04 Labs: Microbiology - Last 24 Hours (Table) 06/10/23 03:05 Blood Culture - Final Blood 06/10/23 02:50 Blood Culture - Final Blood Assessment and Plan Assessment: 1. Acute kidney injury secondary to ATN secondary to cardiorenal syndrome. Creatinine at 1.8 today. Motrin was discontinued. I will add midodrine as blood pressure remains low. Creatinine in March 2023 was 0.63. No hydronephrosis noted on kidney ultrasound/CT. Right kidney small in size. UA with 1+ protein and 4 RBCs. UPC 0.86. Serologies negative. 2. Acute on chronic systolic CHF with ejection fraction of 40-45%. 3. Hyperkalemia secondary to acute kidney injury, lisinopril and spironolactone. Better. On Lokelma. 4. Volume overload. Improving with diuresis. 5. History of nephrolithiasis with left ureteral stent. Urology following. 6. Chronic pulmonary emboli with probable apical thrombus. 7. Acute on chronic right-sided heart failure. Preserved EF noted on echocardiogram. 8. History of aortic thrombus with renal infarct. Right kidney atrophic. 9. Left-sided renal stone. Ureteral stent coiled up in the bladder. Urology following. Plan: Continue with current dose of IV Lasix. Increase dose of Lasix based on labs from today. Maintain off of NSAIDs Add midodrine
--- NOTE | 2023-06-16 15:27 | P.PN ---
Subjective Progress Note Date: 06/15/23 Principal diagnosis: Reason for follow-up is left lower extremity wound and cellulitis Patient is a 48-year-old female with a past medical history significant for COPD heart failure hypertension [place] PE and renal disease patient presented to hospital on 06/10/2023 for evaluation of lower extremity swelling and pain has been diagnosed with a left lower extremity DVT and did have a wound and concern for secondary cellulitis On today's evaluation that is 06/15/2023 patient is afebrile today, patient is breathing comfortably and down to 4 L nasal cannula oxygen. The patient denies s any chest pain occasional cough no sputum production denies any abdominal pain or diarrhea denies pain to the left lower extremity, no new symptoms Patient white count is down to 11.2, creatinine is 1.87 Objective - Vital Signs Vital signs: Vital Signs Temp 99.2 F 06/15/23 19:50 Pulse 90 06/15/23 21:23 Resp 20 06/15/23 19:50 BP 98/68 06/15/23 19:50 Pulse Ox 96 06/15/23 19:50 FiO2 Intake & Output 06/15/23 06/15/23 06/16/23 06:59 18:59 06:59 Intake Total 320 350 Output Total 1000 Balance 320 -650 Weight 110.2 kg 110.2 kg Intake: IV 100 Cefepime 2 gm In Sodium 100 Chloride 0.9% 100 ml @ 25 mls/hr IVPB Q12HR [facility] Rx #:[id number] Intake, IV Titration 100 Amount Cefepime 2 gm In Sodium 100 Chloride 0.9% 100 ml @ 25 mls/hr IVPB Q12HR [facility] Rx #:[id number] Oral 220 250 Output: Urine 1000 Other: Voiding Method Bedside Commode Bedside Commode # Voids 1 # Bowel Movements 1 - Exam GENERAL DESCRIPTION: Middle-aged female up in the bed in bed in no distress RESPIRATORY SYSTEM: Unlabored breathing , coarse breath sounds at bases HEART: S1 S2 regular rate and rhythm , ABDOMEN: Soft , no tenderness EXTREMITIES: Bilateral extremity swelling left leg with wound that is currently dressed - Labs CBC & Chem 7: 06/15/23 04:04 06/15/23 04:04 Labs: Abnormal Lab Results - Last 24 Hours (Table) 06/15/23 06/15/23 Range/Units 04:04 04:04 WBC 11.2 H (3.8-10.6) k/uL MCV 106.9 H (80.0-100.0) fL Plt Count 132 L (150-450) k/uL Macrocytosis Marked A Chloride 97 L (98-107) mmol/L BUN 68 H (7-17) mg/dL Creatinine 1.87 H (0.52-1.04) mg/dL Glucose 152 H (74-99) mg/dL Calcium 8.2 L (8.4-10.2) mg/dL Total Bilirubin 2.2 H (0.2-1.3) mg/dL AST 40 H (14-36) U/L ALT 146 H (4-34) U/L Alkaline Phosphatase 148 H (38-126) U/L Total Protein 5.6 L (6.3-8.2) g/dL Albumin 2.8 L (3.5-5.0) g/dL Microbiology - Last 24 Hours (Table) 06/10/23 03:05 Blood Culture - Final Blood 06/10/23 02:50 Blood Culture - Final Blood 06/13/23 15:20 Urine Culture - Final Urine,Clean Catch Assessment and Plan (1) Left leg cellulitis Current Visit: Yes Status: Acute Code(s): L03.116 - CELLULITIS OF LEFT LOWER LIMB SNOMED Code(s): 35394234730026222 (2) Wound of left leg Current Visit: Yes Status: Acute Code(s): S81.802A - UNSPECIFIED OPEN WOUND, LEFT LOWER LEG, INITIAL ENCOUNTER SNOMED Code(s): 656206523 Plan: 1patient presented hospital with increasing shortness of breath lower extremity swelling which is multifactorial in this patient who did have a history of CHF also with evidence of DVT to the left lower extremity and some superficial ulceration likely component of venous stasis ulceration and concerning for possible secondary cellulitis 2-local cultures currently growing gram-negative bacilli with ID sensitivities pending 3--local wound care with dry Aquacel silver dressing and Kerlix change every 48 hour avoid Robbie wrap because of the DVT in that leg 4patient local culture has been finalized with Acinetobacter and Pseudomonas that is sensitive to cefepime, 5-patient did have resolution of her fever and the patient white count is trending down, patient to continue on cefepime 2 g every 12 hours and monitor clinical course closely Dictation was produced using [employer] dictation software. please excuse any grammatical, word or spelling errors. Time with Patient: Less than 30
--- NOTE | 2023-06-16 15:29 | P.PN ---
Subjective Progress Note Date: 06/16/23 Principal diagnosis: Reason for follow-up is left lower extremity wound and cellulitis Patient is a 48-year-old female with a past medical history significant for COPD heart failure hypertension NH PE and renal disease patient presented to hospital on 06/10/2023 for evaluation of lower extremity swelling and pain has been diagnosed with a left lower extremity DVT and did have a wound and concern for secondary cellulitis On today's evaluation that is 06/16/2023 patient remains to be afebrile, patient is breathing comfortably and down to 2 L nasal cannula oxygen. The patient denies chest pain occasional cough no sputum production, the patient denies any nausea or vomiting, no abdominal pain or diarrhea denies pain to the left lower extremity, Patient white count is down to 11.2, creatinine is 1.87 as of yesterday no lab draw today Objective - Vital Signs Vital signs: Vital Signs Temp 98.3 F 06/16/23 08:00 Pulse 74 06/16/23 14:00 Resp 20 06/16/23 14:00 BP 102/63 06/16/23 12:00 Pulse Ox 94 L 06/16/23 12:00 FiO2 Intake & Output 06/15/23 06/16/23 06/16/23 18:59 06:59 18:59 Intake Total 350 Output Total 1000 1350 Balance -650 -1350 Weight 110.2 kg Intake: IV 100 Cefepime 2 gm In Sodium 100 Chloride 0.9% 100 ml @ 25 mls/hr IVPB Q12HR [facility] Rx #:[id number] Oral 250 Output: Urine 1000 1350 Other: Voiding Method Bedside Commode Bedside Commode # Voids 1 # Bowel Movements 1 - Exam GENERAL DESCRIPTION: Middle-aged female up in the bed in bed in no distress RESPIRATORY SYSTEM: Unlabored breathing , coarse breath sounds at bases HEART: S1 S2 regular rate and rhythm , ABDOMEN: Soft , no tenderness EXTREMITIES: Bilateral extremity swelling left leg with wound that is currently dressed - Labs CBC & Chem 7: 06/15/23 04:04 06/15/23 04:04 Labs: Microbiology - Last 24 Hours (Table) 06/10/23 03:05 Blood Culture - Final Blood 06/10/23 02:50 Blood Culture - Final Blood Assessment and Plan (1) Left leg cellulitis Current Visit: Yes Status: Acute Code(s): L03.116 - CELLULITIS OF LEFT LOWER LIMB SNOMED Code(s): 91158558564797899 (2) Wound of left leg Current Visit: Yes Status: Acute Code(s): S81.802A - UNSPECIFIED OPEN WOUND, LEFT LOWER LEG, INITIAL ENCOUNTER SNOMED Code(s): 648161386 Plan: 1patient presented hospital with increasing shortness of breath lower extremity swelling which is multifactorial in this patient who did have a history of CHF also with evidence of DVT to the left lower extremity and some superficial ulceration likely component of venous stasis ulceration and concerning for possible secondary cellulitis 2-local cultures currently growing gram-negative bacilli with ID sensitivities pending 3--local wound care with dry Aquacel silver dressing and Kerlix change every 48 hour avoid Robbie wrap because of the DVT in that leg 4patient local culture has been finalized with Acinetobacter and Pseudomonas that is sensitive to cefepime, 5-patient did have resolution of her fever and the patient white count is trending down, patient to continue on cefepime 2 g every 12 hours and will be able to finish therapy with oral Cipro on discharge Dictation was produced using [employer] dictation software. please excuse any grammatical, word or spelling errors. Time with Patient: Less than 30
--- NOTE | 2023-06-16 16:44 | P.PN ---
Subjective Progress Note Date: 06/16/23 Principal diagnosis: Shortness of breath. This is a 48-year-old female with a very complicated medical history, patient is known to have history of hypertension, aortic thrombosis, chronic kidney disease, COPD, medical noncompliance, history of pulmonary embolism and pulmonary hypertension, in addition to all of this the patient continues to smoke on a regular basis, and continues to drink alcohol on a daily basis. 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 In January 07, patient was hospitalized at [facility] with elevated troponin, and congestive heart failure as well as elevated RVSP of 51, apparently she had a VQ scan at the time and she was noted to have chronic thromboembolic pulmonary hypertension but apparently the patient left AMA. Patient also had nonischemic cardiomyopathy and supposedly on diuretics but again her compliance is question. This time the patient came into the ER with mostly worsening shortness of breath with any activity, has been extremely tired and fatigued, and she has been noticing increased swelling in her lower extremities. We evaluated the patient in the ER, and reviewed the results of her echocardiogram showing severe enlargement of the right ventricle with hypokinesis and probable apical thrombus and severe pu lmonary hypertension. VQ scan showed high probability for pulmonary embolism. Patient was also noted to have elevated BNP level, and significantly elevated liver enzymes. Serum alcohol was 48, looking back at a previous CT angiogram of the chest on 03/17/2023, there was clearly evidence of a right middle lobe nodule, and I'm not certain if this is being followed by anyone on outpatient basis. Her CT angiogram on 03/17 showed no evidence of pulmonary embolism. This time her VQ scan is showing high probability for pulmonary embolism. Again the main issue here is the fact that the patient had previous history of heparin-induced thrombocytopenia and she had issues with Xarelto and I believe considering her liver enzymes, are get to back in May not be safe to use. Hence hematology consultation is very appropriate at this point Patient was reevaluated today on 06/11/23, a is in the ICU, doing much better today, remains on nasal cannula, continues to have significant erythema and ulceration noted in the lower extremities especially in the left calf region. Blood pressure remains marginal, patient has good urine output, patient is on 3 L nasal cannula and her O2 saturation is ranging between 88-93. Does not seem to be in any distress. WBC count is 15.4 hemoglobin 15.3 basic metabolic profile is normal BUN is 57 creatinine 2.0, pro-calcitonin is 0.24. Patient is on bronchodilators, diuretics, I added cefepime today, patient is also on Arixtra , tolerating that quite well. Reevaluated today on 06/12/23, remains in the ICU, patient is feeling better, breathing easier, seems to be tolerating Arixtra quite well, she is not requiring any pressors, her mean arterial pressure is normal and remained normal all along, did not require pressors and I plan to transfer the patient out of the ICU to a cardiac floor. Patient remains on Lasix at 40 mg IV push every 12 hours, remains on antibiotics/cefepime as per infectious disease on the case, and considering that the patient is not requiring much of an ICU care, I will transfer the patient to a cardiac bed. WBC count today 16 hemoglobin 14.9 basic metabolic profile is normal creatinine is improving down to 1.88 from 2.0 yes terday Reevaluated today on 06/13/23, remains in the ICU as an overflow, a is steadily improving, feeling better overall, remains on 6 L nasal cannula, CT of the chest from yesterday showed an area of consolidation and cystlike lesion in the right lower lobe which definitely needs outpatient follow-up. According to the patient she had previous history of lung nodule that had workup at [facility] and she had biopsy of her lung few years back. And she was told the findings were benign. However I believe those findings on the CT of the chest are relatively new. And she will definitely need outpatient follow-up. In the meantime the patient is doing well from the pulmonary perspective less cough and less shortness of breath, she is on cefepime for her cellulitis and questionable pneumonia, she is also on Lasix 40 mg twice a day. And she is on Arixtra. WBC count today is 20.9 hemoglobin 14.5 basic metabolic profile is normal however her potassium is 5.7 BUN is 66 creatinine 1.84 liver enzymes remain a bit elevated Very today on 06/14/23, remains in the ICU as an overflow, patient remains on Arixtra, cefepime, Lasix 40 mg IV push twice a day, he is also on bronchodilators, and oxygen at 6 L/m. Not much of a change on this patient in the last 24 hours, she is basically about the same, on her chest x-ray there seems to be a new right lower lobe consolidation, and this was also noted on the CT of the chest. It is a masslike consolidation in the right lower lobe, relatively new. Patient has intermittent cough and wheezing continues to have leukocytosis but improving with WBC count of 17.1. Basic metabolic profile is normal renal functioning is a bit better with creatinine coming down from 1.84 down to 1.68. Progress note dated 06/15/2023. This is a 48-year-old female who was admitted back on June 10. She came to the intensive care unit on June 10. She was admitted with a diagnosis of shortness of breath, heart failure, COPD, and pulmonary embolism. Currently, she is an overflow patient, awaiting a bed on . She's on 4 L of oxygen by nasal cannula. She's not receiving any IV fluids. She's feeling much better. She sitting at the side of the bed. White count 11.2, hemoglobin 12.9, hematocrit 40.9, and platelet count was 132,000. Sodium 137, potassium 3.8, chlorides 97, CO2 29, BUN 68, creatinine 1.87. Wound cultures of the leg, on the right, show evidence of Acinetobacter and Pseudomonas. Chest x-ray from yesterday shows airspace disease, right lower lobe. Progress note dated 06/16/2023. 48-year-old female was seen yesterday in the intensive care unit. She was admitted back on June 10, she came to the intensive care unit on the third, and was admitted with a diagnosis of shortness of breath, heart failure, COPD, and pulmonary embolism. Currently, the patient is on 2 L of oxygen. She's not receiving any IV fluids. Her saturations are 94%. She's lying nearly flat in bed, no distress. No new labs today. Labs from June 15, have been reviewed. Objective - Vital Signs Vital signs: Vital Signs Temp 98.3 F 06/16/23 08:00 Pulse 88 06/16/23 16:31 Resp 18 06/16/23 16:00 BP 113/68 06/16/23 16:00 Pulse Ox 100 06/16/23 16:00 FiO2 Intake & Output 06/15/23 06/16/23 06/16/23 18:59 06:59 18:59 Intake Total 350 Output Total 1000 1350 Balance -650 -1350 Weight 110.2 kg Intake: IV 100 Cefepime 2 gm In Sodium 100 Chloride 0.9% 100 ml @ 25 mls/hr IVPB Q12HR [facility] Rx #:[id number] Oral 250 Output: Urine 1000 1350 Other: Voiding Method Bedside Commode Bedside Commode # Voids 1 # Bowel Movements 1 - Exam No acute distress, oriented 3. No overt respiratory distress. No audible wheezing or use of accessory muscles. HEENT examination is grossly unremarkable. Currently on 2 L nasal cannula. Neck supple. Full range of motion. No adenopathy thyromegaly or neck vein distention. Cardiovascular examination reveals regular rhythm rate. S1-S2 normal. No S3 or S4. No discernible murmur noted. Heart sounds are distant. Heart rate 88 bpm. Lungs reveal mild scattered rhonchi. No wheezes. No crackles. Breath sounds equal bilaterally. Saturations 95% on 2 L. Abdomen soft bowel sounds are heard. No masses or tenderness. Extremities are intact. No cyanosis clubbing or edema. Skin is without rash or lesion. Neurologic examination is brief but nonfocal. - Labs CBC & Chem 7: 06/15/23 04:04 06/15/23 04:04 Labs: Microbiology - Last 24 Hours (Table) 06/10/23 03:05 Blood Culture - Final Blood 06/10/23 02:50 Blood Culture - Final Blood Assessment and Plan Assessment: Acute hypoxemic respiratory failure, multifactorial. Possible chronic thromboembolic pulmonary hypertension. Acute pulmonary embolism. Acute alcoholic hepatitis. Acute kidney injury. Nonischemic cardiomyopathy. Severe pulmonary hypertension. History of aortic thromboses and renal infarct. Acute on chronic kidney disease. History of pulmonary nodule. History of heparin-induced thrombocytopenia. Chronic venous insufficiency chronic venous stasis, and lower extremity infection. COPD. Obesity. Tobacco dependence syndrome. History of alcohol abuse. Wound, right leg, secondary to Acinetobacter and Pseudomonas. Plan: Plan dated 06/15/2023. The patient is seen today in room 253, intensive care unit. The patient will need outpatient evaluation of an abnormality seen on computed tomography scan of the chest, in the right lower lobe area. The patient will continue on diu retics, cefepime, bronchodilators, and Arixtra. Additional recommendations and suggestions are forthcoming. The patient is potential overflow patient to 3 S. Additional recommendations and suggestions are forthcoming. We will continue to follow the patient make recommendations along the way. Prognosis is guarded. Plan dated 06/16/2023. The patient is seen today in room 378. Yesterday, she was in the intensive care unit, room 253. She's been weaned down to 2 L of oxygen. Labs, x-rays, m edications are reviewed. The patient is currently not receiving any IV fluids. She continues on appropriate medications, including diuretics, antibiotics, bronchodilators, and blood thinners. We will continue to follow, and make recommendations along the way. Prognosis is guarded. Time with Patient: Less than 30
[2023-06-16] MEDS: MAG HYDROX/AL HYDROX/SIMETH 30 ML, diphenhydrAMINE ELIXIR 75 MG, LIDOCAINE VISCOUS 2% 3... PO SCH ×3 (23:44)
[2023-06-17] MEDS: HYDROmorphone 1 MG/ML 1 ML SYRINGE IVP PRN ×3 (02:00→20:17)
[2023-06-17] MEDS: MIDODRINE 5 MG TAB PO SCH ×2 (06:53→16:55)
[2023-06-17] MEDS: PANTOPRAZOLE 40 MG TABLET PO SCH ×2 (06:53→16:55)
[2023-06-17] MEDS: IPRATROPIUM-ALBUTEROL 3 ML NEB INHALATION SCH ×4 (08:27→20:37)
[2023-06-17] MEDS: SYMBICORT 160-4.5 MCG INHALER INHALATION SCH ×2 (08:27→20:37)
[2023-06-17] MEDS: CEFEPIME 2 GM in SODIUM CHLORIDE 0.9% 100 ML IVPB SCH ×2 (09:35→20:18)
[2023-06-17] MEDS: FUROSEMIDE 10 MG/ML 4 ML VIAL IV SCH ×2 (09:36→20:18)
[2023-06-17] MEDS: MAGNESIUM OXIDE 400 MG TAB PO SCH (09:36)
[2023-06-17] MEDS: NICOTINE 21MG/24HR PATCH TRANSDERM SCH (09:36)
[2023-06-17] MEDS: THIAMINE 100 MG TAB PO SCH (09:36)
[2023-06-17] MEDS: LORazepam 2 MG/ML INJ IV PRN ×3 (09:43→23:49)
[2023-06-17] MEDS: FONDAPARINUX 7.5 MG/0.6 ML SYRINGE SQ SCH (11:03)
[2023-06-17] MEDS: MAG HYDROX/AL HYDROX/SIMETH 30 ML, diphenhydrAMINE ELIXIR 75 MG, LIDOCAINE VISCOUS 2% 3... PO SCH ×12 (11:25→23:49)
[2023-06-17 12:23] LABS: African American GFR (CKD) 78 (>60 ml/min/1.73 sqM); Anion Gap 8 mmol/L; Blood Urea Nitrogen 41 mg/dL (7-17); Calcium 8.5 mg/dL (8.4-10.2); Carbon Dioxide 33 mmol/L (22-30); Chloride 96 mmol/L (98-107); Glucose 110 mg/dL (74-99); Non-African American GFR(CKD) 67 (>60 ml/min/1.73 sqM); Potassium 3.5 mmol/L (3.5-5.1); Sodium 137 mmol/L (137-145)
--- NOTE | 2023-06-17 12:24 | P.PN ---
Subjective Patient is seen for follow-up for acute kidney injury. She is currently being diuresed. Motrin was noted on med list which has been discontinued. Urine output at 3.3 L for 24 hours. Systolic blood pressure slightly better with midodrine. Patient is sitting on the edge of the bed bent over and falling asleep. Objective - Vital Signs Vital signs: Vital Signs Temp 98.0 F 06/17/23 11:37 Pulse 90 06/17/23 11:37 Resp 18 06/17/23 11:37 BP 111/72 06/17/23 11:37 Pulse Ox 96 06/17/23 11:37 FiO2 Intake & Output 06/16/23 06/17/23 06/17/23 18:59 06:59 18:59 Intake Total 600 240 180 Output Total 800 2500 Balance -200 -2260 180 Weight 107.8 kg Intake: Oral 600 240 180 Output: Urine 800 2500 Other: Voiding Method Bedside Commode - Exam Patient is awake, falls back to sleep repeatedly while sitting at the edge of the bed, no acute distress. Examination of the heart S1 and S2 Examination of the lungs shows decreased breath sounds at the bases Abdomen is soft obese nontender Examination lower extremities shows edema 2-3+ bilaterally [employer] exam grossly intact - Labs CBC & Chem 7: 06/15/23 04:04 06/15/23 04:04 Assessment and Plan Assessment: 1. Acute kidney injury secondary to ATN secondary to cardiorenal syndrome. Creatinine at 1.8 on 06/15/2023. Motrin was discontinued. I will add midodrine as blood pressure remains low. Creatinine in March 2023 was 0.63. No hydronephrosis noted on kidney ultrasound/CT. Right kidney small in size. UA with 1+ protein and 4 RBCs. UPC 0.86. Serologies negative. 2. Acute on chronic systolic CHF with ejection fraction of 40-45%. 3. Hyperkalemia secondary to acute kidney injury, lisinopril and spironolactone. Better. On Lokelma. 4. Volume overload. Improving with diuresis. 5. History of nephrolithiasis with left ureteral stent. Urology following. 6. Chronic pulmonary emboli with probable apical thrombus. 7. Acute on chronic right-sided heart failure. Preserved EF noted on echocardiogram. 8. History of aortic thrombus with renal infarct. Right kidney atrophic. 9. Left-sided renal stone. Ureteral stent coiled up in the bladder. Urology following. Plan: Continue with current dose of IV Lasix. It was increased. Check labs today Maintain off of NSAIDs Add midodrine
--- NOTE | 2023-06-17 14:18 | P.PN ---
Subjective Progress Note Date: 06/17/23 Principal diagnosis: Shortness of breath. This is a 48-year-old female with a very complicated medical history, patient is known to have history of hypertension, aortic thrombosis, chronic kidney disease, COPD, medical noncompliance, history of pulmonary embolism and pulmonary hypertension, in addition to all of this the patient continues to smoke on a regular basis, and continues to drink alcohol on a daily basis. 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 In January 07, patient was hospitalized at [facility] with elevated troponin, and congestive heart failure as well as elevated RVSP of 51, apparently she had a VQ scan at the time and she was noted to have chronic thromboembolic pulmonary hypertension but apparently the patient left AMA. Patient also had nonischemic cardiomyopathy and supposedly on diuretics but again her compliance is question. This time the patient came into the ER with mostly worsening shortness of breath with any activity, has been extremely tired and fatigued, and she has been noticing increased swelling in her lower extremities. We evaluated the patient in the ER, and reviewed the results of her echocardiogram showing severe enlargement of the right ventricle with hypokinesis and probable apical thrombus and severe pu lmonary hypertension. VQ scan showed high probability for pulmonary embolism. Patient was also noted to have elevated BNP level, and significantly elevated liver enzymes. Serum alcohol was 48, looking back at a previous CT angiogram of the chest on 03/17/2023, there was clearly evidence of a right middle lobe nodule, and I'm not certain if this is being followed by anyone on outpatient basis. Her CT angiogram on 03/17 showed no evidence of pulmonary embolism. This time her VQ scan is showing high probability for pulmonary embolism. Again the main issue here is the fact that the patient had previous history of heparin-induced thrombocytopenia and she had issues with Xarelto and I believe considering her liver enzymes, are get to back in May not be safe to use. Hence hematology consultation is very appropriate at this point Patient was reevaluated today on 06/11/23, a is in the ICU, doing much better today, remains on nasal cannula, continues to have significant erythema and ulceration noted in the lower extremities especially in the left calf region. Blood pressure remains marginal, patient has good urine output, patient is on 3 L nasal cannula and her O2 saturation is ranging between 88-93. Does not seem to be in any distress. WBC count is 15.4 hemoglobin 15.3 basic metabolic profile is normal BUN is 57 creatinine 2.0, pro-calcitonin is 0.24. Patient is on bronchodilators, diuretics, I added cefepime today, patient is also on Arixtra , tolerating that quite well. Reevaluated today on 06/12/23, remains in the ICU, patient is feeling better, breathing easier, seems to be tolerating Arixtra quite well, she is not requiring any pressors, her mean arterial pressure is normal and remained normal all along, did not require pressors and I plan to transfer the patient out of the ICU to a cardiac floor. Patient remains on Lasix at 40 mg IV push every 12 hours, remains on antibiotics/cefepime as per infectious disease on the case, and considering that the patient is not requiring much of an ICU care, I will transfer the patient to a cardiac bed. WBC count today 16 hemoglobin 14.9 basic metabolic profile is normal creatinine is improving down to 1.88 from 2.0 yes terday Reevaluated today on 06/13/23, remains in the ICU as an overflow, a is steadily improving, feeling better overall, remains on 6 L nasal cannula, CT of the chest from yesterday showed an area of consolidation and cystlike lesion in the right lower lobe which definitely needs outpatient follow-up. According to the patient she had previous history of lung nodule that had workup at [facility] and she had biopsy of her lung few years back. And she was told the findings were benign. However I believe those findings on the CT of the chest are relatively new. And she will definitely need outpatient follow-up. In the meantime the patient is doing well from the pulmonary perspective less cough and less shortness of breath, she is on cefepime for her cellulitis and questionable pneumonia, she is also on Lasix 40 mg twice a day. And she is on Arixtra. WBC count today is 20.9 hemoglobin 14.5 basic metabolic profile is normal however her potassium is 5.7 BUN is 66 creatinine 1.84 liver enzymes remain a bit elevated Very today on 06/14/23, remains in the ICU as an overflow, patient remains on Arixtra, cefepime, Lasix 40 mg IV push twice a day, he is also on bronchodilators, and oxygen at 6 L/m. Not much of a change on this patient in the last 24 hours, she is basically about the same, on her chest x-ray there seems to be a new right lower lobe consolidation, and this was also noted on the CT of the chest. It is a masslike consolidation in the right lower lobe, relatively new. Patient has intermittent cough and wheezing continues to have leukocytosis but improving with WBC count of 17.1. Basic metabolic profile is normal renal functioning is a bit better with creatinine coming down from 1.84 down to 1.68. Progress note dated 06/15/2023. This is a 48-year-old female who was admitted back on June 10. She came to the intensive care unit on June 10. She was admitted with a diagnosis of shortness of breath, heart failure, COPD, and pulmonary embolism. Currently, she is an overflow patient, awaiting a bed on . She's on 4 L of oxygen by nasal cannula. She's not receiving any IV fluids. She's feeling much better. She sitting at the side of the bed. White count 11.2, hemoglobin 12.9, hematocrit 40.9, and platelet count was 132,000. Sodium 137, potassium 3.8, chlorides 97, CO2 29, BUN 68, creatinine 1.87. Wound cultures of the leg, on the right, show evidence of Acinetobacter and Pseudomonas. Chest x-ray from yesterday shows airspace disease, right lower lobe. Progress note dated 06/16/2023. 48-year-old female was seen yesterday in the intensive care unit. She was admitted back on June 10, she came to the intensive care unit on the third, and was admitted with a diagnosis of shortness of breath, heart failure, COPD, and pulmonary embolism. Currently, the patient is on 2 L of oxygen. She's not receiving any IV fluids. Her saturations are 94%. She's lying nearly flat in bed, no distress. No new labs today. Labs from June 15, have been reviewed. Progress note dated 06/17/2023. 48-year-old female was seen in the intensive care unit, initially. The patient was admitted back on June 10, coming into the intensive care unit, with a diagnosis of shortness of breath, heart failure, COPD, pulmonary embolism. The patient is now seen today in room 378. The patient is currently doing reasonably well. She's on 3 L of oxygen. She's not receiving any IV fluids. Her foot wound was positive for both Pseudomonas and Acinetobacter, and for that she is on cefepime. Her blood thinner is Arixtra. Currently labs include a sodium of 137, potassium 3.5, chlorides 96, CO2 33, anion gap 8, BUN 41, creatinine 0.99. This compares to a BUN and creatinine 2 days ago 68 and 1.87. Glucose 110. Objective - Vital Signs Vital signs: Vital Signs Temp 98.0 F 06/17/23 11:37 Pulse 90 06/17/23 11:37 Resp 18 06/17/23 11:37 BP 111/72 06/17/23 11:37 Pulse Ox 96 06/17/23 11:37 FiO2 Intake & Output 06/16/23 06/17/23 06/17/23 18:59 06:59 18:59 Intake Total 600 240 360 Output Total 800 2500 Balance -200 -2260 360 Weight 107.8 kg Intake: Oral 600 240 360 Output: Urine 800 2500 Other: Voiding Method Bedside Commode # Voids 1 - Exam No acute distress, oriented 3. No overt respiratory distress. No audible wheezing or use of accessory muscles. HEENT examination is grossly unremarkable. Currently on 2 L nasal cannula. Neck supple. Full range of motion. No adenopathy thyromegaly or neck vein distention. Cardiovascular examination reveals regular rhythm rate. S1-S2 normal. No S3 or S4. No discernible murmur noted. Heart sounds are distant. Heart rate 90 bpm. Lungs reveal mild scattered rhonchi. No wheezes. No crackles. Breath sounds equal bilaterally. Saturations 96% on 3 L. Abdomen soft bowel sounds are heard. No masses or tenderness. Extremities are intact. No cyanosis clubbing or edema. Skin is without rash or lesion. Neurologic examination is brief but nonfocal. - Labs CBC & Chem 7: 06/15/23 04:04 06/17/23 11:50 Labs: Abnormal Lab Results - Last 24 Hours (Table) 01/10/24 Range/Units 11:50 Chloride 96 L (98-107) mmol/L Carbon Dioxide 33 H (22-30) mmol/L BUN 41 H (7-17) mg/dL Glucose 110 H (74-99) mg/dL Microbiology - Last 24 Hours (Table) 06/11/23 12:00 Anaerobic Culture - Final Leg - Right Anaerobic Gm Negative Bacilli Anaerobic Gm Negative Bacilli#2 Anaerobic Gm Negative Bacilli#3 Assessment and Plan Assessment: Acute hypoxemic respiratory failure, multifactorial. Possible chronic thromboembolic pulmonary hypertension. Acute pulmonary embolism. Acute alcoholic hepatitis. Acute kidney injury. Nonischemic cardiomyopathy. Severe pulmonary hypertension. History of aortic thromboses and renal infarct. Acute on chronic kidney disease. History of pulmonary nodule. History of heparin-induced thrombocytopenia. Chronic venous insufficiency chronic venous stasis, and lower extremity infection. COPD. Obesity. Tobacco dependence syndrome. History of alcohol abuse. Wound, right leg, secondary to Acinetobacter and Pseudomonas. Plan: Plan dated 06/15/2023. The patient is seen today in room 253, intensive care unit. The patient will need outpatient evaluation of an abnormality seen on computed tomography scan of the chest, in the right lower lobe area. The patient will continue on diuretics, cefepime, bronchodilators, and Arixtra. Additional recommendations and suggestions are forthcoming. The patient is potential overflow patient to 3 S. Additional recommendations and suggestions are forthcoming. We will continue to follow the patient make recommendations along the way. Prognosis is guarded. Plan dated 06/16/2023. The patient is seen today in room 378. Yesterday, she was in the intensive care unit, room 253. She's been weaned down to 2 L of oxygen. Labs, x-rays, medications are reviewed. The patient is currently not receiving any IV fluids. She continues on appropriate medications, including diuretics, antibiotics, bronchodilators, and blood thinners. We will continue to follow, and make recommendations along the way. Prognosis is guarded. Plan dated 06/17/2023. The patient is seen today in room 378. The patient continues on oxygen, at 3 L. Her saturations are 96%. Labs, x-rays, and medications are all reviewed. She continues on cefepime, for wound, that's demonstrating both Pseudomonas and Acinetobacter. She's currently on Arixtra, for a blood thinner, for her pulmonary embolism. We will continue to follow, and make recommendations along the way. Prognosis is guarded. No additional recommendations are made. Time with Patient: Less than 30
[2023-06-18] MEDS ORDERED: clonazePAM 1 MG TAB PO STA (01:56)
--- NOTE | 2023-06-18 02:57 | PN ---
PROGRESS NOTE DATE OF SERVICE: 06/16/2023 SUBJECTIVE: The patient is sleeping at the table, now lying in her bed. She is taking her oxygen off at night. She became more lethargic. She took her oxygen off. Oxygen was all cut down. OBJECTIVE: VITAL SIGNS: Temperature saturating 98, pulse 70s to 90s, 111 to 120 over 78, and 96 on 3 L. CARDIOVASCULAR: S1, S2. ENDOCRINE: BMI is over 40. LUNGS: Scattered rhonchi and wheeze. HEMATOLOGY: 3+ edema. NEUROLOGY: She is sitting up, giving appropriate answers. ASSESSMENT: Acute hypoxemic respiratory failure. BUN is 68, creatinine 1.87. She has Pseudomonas Acetobacter legs, airspace disease right lower lobe. She remains on fluids, Lasix, antibiotics, oxygen updrafts. PROGNOSIS: Guarded. Please see further orders. Aspiration precautions were given. Please see further Pulmonary notes. MMODL / IJN: [id number] /
[2023-06-18] MEDS: HYDROmorphone 1 MG/ML 1 ML SYRINGE IVP PRN ×4 (03:34→22:36)
[2023-06-18] MEDS: PANTOPRAZOLE 40 MG TABLET PO SCH ×2 (06:42→15:58)
[2023-06-18] MEDS: MIDODRINE 5 MG TAB PO SCH ×3 (06:42→16:04)
[2023-06-18] MEDS: MAGNESIUM OXIDE 400 MG TAB PO SCH (08:49)
[2023-06-18] MEDS: NICOTINE 21MG/24HR PATCH TRANSDERM SCH (08:49)
[2023-06-18] MEDS: THIAMINE 100 MG TAB PO SCH (08:49)
[2023-06-18] MEDS: FUROSEMIDE 10 MG/ML 4 ML VIAL IV SCH ×2 (08:49→20:28)
[2023-06-18] MEDS: MAG HYDROX/AL HYDROX/SIMETH 30 ML, diphenhydrAMINE ELIXIR 75 MG, LIDOCAINE VISCOUS 2% 3... PO SCH ×12 (08:50→22:38)
[2023-06-18] MEDS: SYMBICORT 160-4.5 MCG INHALER INHALATION SCH ×2 (08:50→21:51)
[2023-06-18] MEDS: IPRATROPIUM-ALBUTEROL 3 ML NEB INHALATION SCH ×4 (08:50→21:51)
[2023-06-18] MEDS: CEFEPIME 2 GM in SODIUM CHLORIDE 0.9% 100 ML IVPB SCH ×2 (08:50→20:27)
[2023-06-18] MEDS: FONDAPARINUX 7.5 MG/0.6 ML SYRINGE SQ SCH (09:49)
--- NOTE | 2023-06-18 12:31 | P.PN ---
Subjective Patient is seen for follow-up for acute kidney injury. She is currently being diuresed. Renal function has improved with serum creatinine down to 0.9 yesterday Urine output at 3.3 L for 24 hours. Systolic blood pressure slightly better with midodrine. Patient is rushing to go to the bathroom for a bowel movement. She states that her shortness of breath is somewhat improved. Objective - Vital Signs Vital signs: Vital Signs Temp 98.1 F 06/17/23 15:42 Pulse 114 H 06/18/23 12:19 Resp 18 06/18/23 08:00 BP 109/69 06/18/23 08:00 Pulse Ox 96 06/18/23 08:00 FiO2 Intake & Output 06/17/23 06/18/23 06/18/23 18:59 06:59 18:59 Intake Total 360 240 Output Total 1700 Balance -1340 240 Weight 107 kg Intake: Oral 360 240 Output: Urine 1700 Other: Voiding Method Toilet Toilet Bedside Commode Bedside Commode # Voids 1 1 - Exam Patient is awake, comfortable no acute distress.. 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 Acute kidney injury secondary to ATN secondary to cardiorenal syndrome. Creatinine decreased to 0.9 yesterday. Motrin was discontinued. Maintained on midodrine as blood pressure was low. Creatinine in March 2023 was 0.63. No hydronephrosis noted on kidney ultrasound/CT. Right kidney small in size. UA with 1+ protein and 4 RBCs. UPC 0.86. Serologies negative. 2. Acute on chronic systolic CHF with ejection fraction of 40-45%. 3. Hyperkalemia secondary to acute kidney injury, lisinopril and spironolactone. Better. On Lokelma. 4. Volume overload. Improving with diuresis. 5. History of nephrolithiasis with left ureteral stent. Urology following. 6. Chronic pulmonary emboli with probable apical thrombus. 7. Acute on chronic right-sided heart failure. Preserved EF noted on echocardiogram. 8. History of aortic thrombus with renal infarct. Right kidney atrophic. 9. Left-sided renal stone. Ureteral stent coiled up in the bladder. Urology following. Plan: Continue with current dose of IV Lasix. Maintain off of NSAIDs Continue midodrine
--- NOTE | 2023-06-18 13:08 | P.PN ---
Subjective Progress Note Date: 06/17/23 Principal diagnosis: Reason for follow-up is left lower extremity wound and cellulitis Patient is a 48-year-old female with a past medical history significant for COPD heart failure hypertension [place] PE and renal disease patient presented to hospital on 06/10/2023 for evaluation of lower extremity swelling and pain has been diagnosed with a left lower extremity DVT and did have a wound and concern for secondary cellulitis On today's evaluation that is 06/17/2023 patient denies any fever or any chills e, patient is breathing comfortably on 2 L nasal cannula oxygen. The patient denies chest pain, the patient have occasional cough no sputum production, the patient denies any nausea or vomiting, no abdominal pain or diarrhea, the patient denies pain to the left lower extremity, Patient white count is 11.2 as of 2023, creatinine is 0.99 Objective - Vital Signs Vital signs: Vital Signs Temp 98.0 F 06/17/23 11:37 Pulse 90 06/17/23 11:37 Resp 18 06/17/23 11:37 BP 111/72 06/17/23 11:37 Pulse Ox 96 06/17/23 11:37 FiO2 Intake & Output 06/16/23 06/17/23 06/17/23 18:59 06:59 18:59 Intake Total 600 240 180 Output Total 800 2500 Balance -200 -2260 180 Weight 107.8 kg Intake: Oral 600 240 180 Output: Urine 800 2500 Other: Voiding Method Bedside Commode - Exam GENERAL DESCRIPTION: Middle-aged female up in the bed in bed in no distress RESPIRATORY SYSTEM: Unlabored breathing , coarse breath sounds at bases HEART: S1 S2 regular rate and rhythm , ABDOMEN: Soft , no tenderness EXTREMITIES: Bilateral extremity swelling left leg with wound that is currently dressed - Labs CBC & Chem 7: 06/15/23 04:04 06/17/23 11:50 Labs: Abnormal Lab Results - Last 24 Hours (Table) 06/17/23 Range/Units 11:50 Chloride 96 L (98-107) mmol/L Carbon Dioxide 33 H (22-30) mmol/L BUN 41 H (7-17) mg/dL Glucose 110 H (74-99) mg/dL Assessment and Plan (1) Left leg cellulitis Current Visit: Yes Status: Acute Code(s): L03.116 - CELLULITIS OF LEFT LOWER LIMB SNOMED Code(s): 13281815570978786 (2) Wound of left leg Current Visit: Yes Status: Acute Code(s): S81.802A - UNSPECIFIED OPEN WOUND, LEFT LOWER LEG, INITIAL ENCOUNTER SNOMED Code(s): 543024573 Plan: 1patient presented hospital with increasing shortness of breath lower extremity swelling which is multifactorial in this patient who did have a history of CHF also with evidence of DVT to the left lower extremity and some superficial ulceration likely component of venous stasis ulceration and concerning for possible secondary cellulitis 2-local cultures currently growing gram-negative bacilli with ID sensitivities pending 3--local wound care with dry Aquacel silver dressing and Kerlix change every 48 hour avoid Robbie wrap because of the DVT in that leg 4patient local culture has been finalized with Acinetobacter and Pseudomonas that is sensitive to cefepime, 5-patient did have resolution of her fever and the patient white count is trending down 6- patient to continue on cefepime 2 g every 12 hours, however the patient will be able to finish therapy with oral Cipro Dictation was produced using [employer] dictation software. please excuse any grammatical, word or spelling errors. Time with Patient: Less than 30
--- NOTE | 2023-06-18 13:10 | P.PN ---
Subjective Progress Note Date: 06/18/23 Principal diagnosis: Reason for follow-up is left lower extremity wound and cellulitis Patient is a 48-year-old female with a past medical history significant for COPD heart failure hypertension [place] PE and renal disease patient presented to hospital on 06/10/2023 for evaluation of lower extremity swelling and pain has been diagnosed with a left lower extremity DVT and did have a wound and concern for secondary cellulitis On today's evaluation that is 06/18/2023 patient remains to be afebrile, patient is breathing comfortably on 2 L nasal cannula oxygen. The patient denies chest pain shortness of breath no significant cough did have occasional sputum production mildly blood during the patient denies any nausea or vomiting, no abdominal pain or diarrhea, the patient denies pain to the left lower extremity, no new symptoms Patient white count is 11.2 as of 06/15/2023, creatinine is 0.99 as of yesterday Objective - Vital Signs Vital signs: Vital Signs Temp 98.1 F 06/17/23 15:42 Pulse 114 H 06/18/23 12:19 Resp 18 06/18/23 08:00 BP 109/69 06/18/23 08:00 Pulse Ox 96 06/18/23 08:00 FiO2 Intake & Output 06/17/23 06/18/23 06/18/23 18:59 06:59 18:59 Intake Total 360 240 Output Total 1700 Balance -1340 240 Weight 107 kg Intake: Oral 360 240 Output: Urine 1700 Other: Voiding Method Toilet Toilet Bedside Commode Bedside Commode # Voids 1 1 - Exam GENERAL DESCRIPTION: Middle-aged female up in the bed in bed in no distress RESPIRATORY SYSTEM: Unlabored breathing , coarse breath sounds at bases HEART: S1 S2 regular rate and rhythm , ABDOMEN: Soft , no tenderness EXTREMITIES: Bilateral extremity swelling left leg with wound that is currently dressed - Labs CBC & Chem 7: 06/15/23 04:04 06/17/23 11:50 Labs: Microbiology - Last 24 Hours (Table) 06/11/23 12:00 Anaerobic Culture - Final Leg - Right Anaerobic Gm Negative Bacilli Anaerobic Gm Negative Bacilli#2 Anaerobic Gm Negative Bacilli#3 Assessment and Plan (1) Left leg cellulitis Current Visit: Yes Status: Acute Code(s): L03.116 - CELLULITIS OF LEFT LOWER LIMB SNOMED Code(s): 17025619828145149 (2) Wound of left leg Current Visit: Yes Status: Acute Code(s): S81.802A - UNSPECIFIED OPEN WOUND, LEFT LOWER LEG, INITIAL ENCOUNTER SNOMED Code(s): 405523801 Plan: 1patient presented hospital with increasing shortness of breath lower extremity swelling which is multifactorial in this patient who did have a history of CHF also with evidence of DVT to the left lower extremity and some superficial ulceration likely component of venous stasis ulceration and concerning for possible secondary cellulitis 2-local cultures currently growing gram-negative bacilli with ID sensitivities pending 3--local wound care with dry Aquacel silver dressing and Kerlix change every 48 hour avoid Robbie wrap because of the DVT in that leg 4patient local culture has been finalized with Acinetobacter and Pseudomonas that is sensitive to cefepime, 5-patient did have resolution of her fever and the patient white count is trending down, we will repeat her CBC with a.m. lab 6- patient to continue on cefepime dose will be adjusted to every 8 hour in view of improvement in her kidney function, however the patient will be able to finish therapy with oral Cipro on discharge there is no need for any PICC line and IV device on discharge Dictation was produced using [employer] dictation software. please excuse any grammatical, word or spelling errors. Time with Patient: Less than 30
--- NOTE | 2023-06-18 13:54 | P.PN ---
Subjective Progress Note Date: 06/18/23 Principal diagnosis: Shortness of breath. This is a 48-year-old female with a very complicated medical history, patient is known to have history of hypertension, aortic thrombosis, chronic kidney disease, COPD, medical noncompliance, history of pulmonary embolism and pulmonary hypertension, in addition to all of this the patient continues to smoke on a regular basis, and continues to drink alcohol on a daily basis. 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 In January 07, patient was hospitalized at [facility] with elevated troponin, and congestive heart failure as well as elevated RVSP of 51, apparently she had a VQ scan at the time and she was noted to have chronic thromboembolic pulmonary hypertension but apparently the patient left AMA. Patient also had nonischemic cardiomyopathy and supposedly on diuretics but again her compliance is question. This time the patient came into the ER with mostly worsening shortness of breath with any activity, has been extremely tired and fatigued, and she has been noticing increased swelling in her lower extremities. We evaluated the patient in the ER, and reviewed the results of her echocardiogram showing severe enlargement of the right ventricle with hypokinesis and probable apical thrombus and severe pu lmonary hypertension. VQ scan showed high probability for pulmonary embolism. Patient was also noted to have elevated BNP level, and significantly elevated liver enzymes. Serum alcohol was 48, looking back at a previous CT angiogram of the chest on 03/17/2023, there was clearly evidence of a right middle lobe nodule, and I'm not certain if this is being followed by anyone on outpatient basis. Her CT angiogram on 03/17 showed no evidence of pulmonary embolism. This time her VQ scan is showing high probability for pulmonary embolism. Again the main issue here is the fact that the patient had previous history of heparin-induced thrombocytopenia and she had issues with Xarelto and I believe considering her liver enzymes, are get to back in May not be safe to use. Hence hematology consultation is very appropriate at this point Patient was reevaluated today on 06/11/23, a is in the ICU, doing much better today, remains on nasal cannula, continues to have significant erythema and ulceration noted in the lower extremities especially in the left calf region. Blood pressure remains marginal, patient has good urine output, patient is on 3 L nasal cannula and her O2 saturation is ranging between 88-93. Does not seem to be in any distress. WBC count is 15.4 hemoglobin 15.3 basic metabolic profile is normal BUN is 57 creatinine 2.0, pro-calcitonin is 0.24. Patient is on bronchodilators, diuretics, I added cefepime today, patient is also on Arixtra , tolerating that quite well. Reevaluated today on 06/12/23, remains in the ICU, patient is feeling better, breathing easier, seems to be tolerating Arixtra quite well, she is not requiring any pressors, her mean arterial pressure is normal and remained normal all along, did not require pressors and I plan to transfer the patient out of the ICU to a cardiac floor. Patient remains on Lasix at 40 mg IV push every 12 hours, remains on antibiotics/cefepime as per infectious disease on the case, and considering that the patient is not requiring much of an ICU care, I will transfer the patient to a cardiac bed. WBC count today 16 hemoglobin 14.9 basic metabolic profile is normal creatinine is improving down to 1.88 from 2.0 yes terday Reevaluated today on 06/13/23, remains in the ICU as an overflow, a is steadily improving, feeling better overall, remains on 6 L nasal cannula, CT of the chest from yesterday showed an area of consolidation and cystlike lesion in the right lower lobe which definitely needs outpatient follow-up. According to the patient she had previous history of lung nodule that had workup at [facility] and she had biopsy of her lung few years back. And she was told the findings were benign. However I believe those findings on the CT of the chest are relatively new. And she will definitely need outpatient follow-up. In the meantime the patient is doing well from the pulmonary perspective less cough and less shortness of breath, she is on cefepime for her cellulitis and questionable pneumonia, she is also on Lasix 40 mg twice a day. And she is on Arixtra. WBC count today is 20.9 hemoglobin 14.5 basic metabolic profile is normal however her potassium is 5.7 BUN is 66 creatinine 1.84 liver enzymes remain a bit elevated Very today on 06/14/23, remains in the ICU as an overflow, patient remains on Arixtra, cefepime, Lasix 40 mg IV push twice a day, he is also on bronchodilators, and oxygen at 6 L/m. Not much of a change on this patient in the last 24 hours, she is basically about the same, on her chest x-ray there seems to be a new right lower lobe consolidation, and this was also noted on the CT of the chest. It is a masslike consolidation in the right lower lobe, relatively new. Patient has intermittent cough and wheezing continues to have leukocytosis but improving with WBC count of 17.1. Basic metabolic profile is normal renal functioning is a bit better with creatinine coming down from 1.84 down to 1.68. Progress note dated 06/15/2023. This is a 48-year-old female who was admitted back on June 10. She came to the intensive care unit on June 10. She was admitted with a diagnosis of shortness of breath, heart failure, COPD, and pulmonary embolism. Currently, she is an overflow patient, awaiting a bed on . She's on 4 L of oxygen by nasal cannula. She's not receiving any IV fluids. She's feeling much better. She sitting at the side of the bed. White count 11.2, hemoglobin 12.9, hematocrit 40.9, and platelet count was 132,000. Sodium 137, potassium 3.8, chlorides 97, CO2 29, BUN 68, creatinine 1.87. Wound cultures of the leg, on the right, show evidence of Acinetobacter and Pseudomonas. Chest x-ray from yesterday shows airspace disease, right lower lobe. Progress note dated 06/16/2023. 48-year-old female was seen yesterday in the intensive care unit. She was admitted back on June 10, she came to the intensive care unit on the third, and was admitted with a diagnosis of shortness of breath, heart failure, COPD, and pulmonary embolism. Currently, the patient is on 2 L of oxygen. She's not receiving any IV fluids. Her saturations are 94%. She's lying nearly flat in bed, no distress. No new labs today. Labs from June 15, have been reviewed. Progress note dated 06/17/2023. 48-year-old female was seen in the intensive care unit, initially. The patient was admitted back on June 10, coming into the intensive care unit, with a diagnosis of shortness of breath, heart failure, COPD, pulmonary embolism. The patient is now seen today in room 378. The patient is currently doing reasonably well. She's on 3 L of oxygen. She's not receiving any IV fluids. Her foot wound was positive for both Pseudomonas and Acinetobacter, and for that she is on cefepime. Her blood thinner is Arixtra. Currently labs include a sodium of 137, potassium 3.5, chlorides 96, CO2 33, anion gap 8, BUN 41, creatinine 0.99. This compares to a BUN and creatinine 2 days ago 68 and 1.87. Glucose 110. Progress note dated 06/18/2023. 48-year-old female initially seen in the intensive care unit, for shortness of breath, CHF, and pulmonary embolism. The patient is now seen in room 378. The patient continues on oxygen at 2 L. Saturations are 96%. She also continues on cefepime, oriented foot wound, which revealed both Acinetobacter, and Pseudomonas. The patient denies any significant shortness of breath. She is re sting comfortably, sitting at the side of the bed. No new labs today. Labs from June 17 have been reviewed. Objective - Vital Signs Vital signs: Vital Signs Temp 98.1 F 06/17/23 15:42 Pulse 114 H 06/18/23 12:19 Resp 18 06/18/23 08:00 BP 109/69 06/18/23 08:00 Pulse Ox 96 06/18/23 08:00 FiO2 Intake & Output 06/17/23 06/18/23 06/18/23 18:59 06:59 18:59 Intake Total 360 240 Output Total 1700 Balance -1340 240 Weight 107 kg Intake: Oral 360 240 Output: Urine 1700 Other: Voiding Method Toilet Toilet Bedside Commode Bedside Commode # Voids 1 1 - Exam No acute distress, oriented 3. No overt respiratory distress. No audible wheezing or use of accessory muscles. HEENT examination is grossly unremarkable. Currently on 2 L nasal cannula. Neck supple. Full range of motion. No adenopathy thyromegaly or neck vein distention. Cardiovascular examination reveals regular rhythm rate. S1-S2 normal. No S3 or S4. No discernible murmur noted. Heart sounds are distant. Heart rate 103 bpm. Lungs reveal mild scattered rhonchi. No wheezes. No crackles. Breath sounds equal bilaterally. Saturations 97 % on 2 L. Abdomen soft bowel sounds are heard. No masses or tenderness. Extremities are intact. No cyanosis clubbing or edema. Skin is without rash or lesion. Neurologic examination is brief but nonfocal. - Labs CBC & Chem 7: 06/15/23 04:04 06/17/23 11:50 Labs: Microbiology - Last 24 Hours (Table) 06/11/23 12:00 Anaerobic Culture - Final Leg - Right Anaerobic Gm Negative Bacilli Anaerobic Gm Negative Bacilli#2 Anaerobic Gm Negative Bacilli#3 Assessment and Plan Assessment: Acute hypoxemic respiratory failure, in part related to CHF, and also pulmonary embolism. Possible chronic thromboembolic pulmonary hypertension. Acute pulmonary embolism. Acute alcoholic hepatitis. Acute kidney injury. Nonischemic cardiomyopathy. Severe pulmonary hypertension. History of aortic thromboses and renal infarct. Acute on chronic kidney disease. History of pulmonary nodule. History of heparin-induced thrombocytopenia. Chronic venous insufficiency chronic venous stasis, and lower extremity infection. COPD. Obesity. Tobacco dependence syndrome. History of alcohol abuse. Wound, right leg, secondary to Acinetobacter and Pseudomonas. Plan: Plan dated 06/15/2023. The patient is seen today in room 253, intensive care unit. The patient will need outpatient evaluation of an abnormality seen on computed tomography scan of the chest, in the right lower lobe area. The patient will continue on diuretics, cefepime, bronchodilators, and Arixtra. Additional recommendations and suggestions are forthcoming. The patient is potential overflow patient to 3 S. Additional recommendations and suggestions are forthcoming. We will continue to follow the patient make recommendations along the way. Prognosis is guarded. Plan dated 06/16/2023. The patient is seen today in room 378. Yesterday, she was in the intensive care unit, room 253. She's been weaned down to 2 L of oxygen. Labs, x-rays, medications are reviewed. The patient is currently not receiving any IV fluids. She continues on appropriate medications, including diuretics, antibiotics, bronchodilators, and blood thinners. We will continue to follow, and make recommendations along the way. Prognosis is guarded. Plan dated 06/17/2023. The patient is seen today in room 378. The patient continues on oxygen, at 3 L. Her saturations are 96%. Labs, x-rays, and medications are all reviewed. She continues on cefepime, for wound, that's demonstrating both Pseudomonas and Acinetobacter. She's currently on Arixtra, for a blood thinner, for her pulmonary embolism. We will continue to follow, and make recommendations along the way. Prognosis is guarded. No additional recommendations are made. Plan dated 06/18/2023. The patient is seen today in room 378. She sitting at the edge of her bed. She is on 2 L of oxygen. Labs, x-rays, medications are reviewed. She continues on cefepime, for a wound infection, involving her foot, which apparently showed evidence of both Acinetobacter, and Pseudomonas. Labs, x-rays, medications are reviewed. The patient's overall prognosis remains guarded. We will continue to follow. She also continues on Arixtra, for her pulmonary embolism. She is not manifesting any signs or symptoms of respiratory distress. She denies any shortness of breath, chest tightness, wheezing, cough, or phlegm production. Time with Patient: Less than 30
[2023-06-18] MEDS: LORazepam 2 MG/ML INJ IV PRN ×2 (15:57→22:35)
[2023-06-19] MEDS: BENZONATATE 100 MG CAP PO SCH ×4 (00:12→22:21)
[2023-06-19] MEDS: CEFEPIME 2 GM in SODIUM CHLORIDE 0.9% 100 ML IVPB SCH ×2 (04:17→22:19)
[2023-06-19] MEDS: HYDROmorphone 1 MG/ML 1 ML SYRINGE IVP PRN ×3 (04:17→22:14)
[2023-06-19] MEDS: PANTOPRAZOLE 40 MG TABLET PO SCH ×2 (06:30→17:44)
[2023-06-19] MEDS: MIDODRINE 5 MG TAB PO SCH ×2 (06:30→17:45)
[2023-06-19] MEDS: SYMBICORT 160-4.5 MCG INHALER INHALATION SCH ×2 (09:01→20:55)
[2023-06-19] MEDS: IPRATROPIUM-ALBUTEROL 3 ML NEB INHALATION SCH ×4 (09:02→20:55)
[2023-06-19 09:46] LABS: Basophils # (A) 0.1 k/uL (0-0.2); Basophils % (A) 1 %; Eosinophils # (A) 0.4 k/uL (0-0.7); Eosinophils % (A) 2 %; HCT 43.2 % (34.0-46.0); HGB 13.7 gm/dL (11.4-16.0); Hypochromasia Moderate; Lymphocytes # (A) 1.6 k/uL (1.0-4.8); Lymphocytes % (A) 10 %; MCH 33.9 pg (25.0-35.0); MCHC 31.8 g/dL (31.0-37.0); MCV 106.6 fL (80.0-100.0); Macrocytosis Moderate; Mean Platelet Volume 10.5; Monocytes # (A) 1.3 k/uL (0-1.0); Monocytes % (A) 9 %; Neutrophils # (A) 11.8 k/uL (1.3-7.7); Neutrophils % (A) 75 %; Platelet Count 202 k/uL (150-450); RBC 4.05 m/uL (3.80-5.40); RDW 15.4 % (11.5-15.5); WBC 15.6 k/uL (3.8-10.6)
[2023-06-19 09:53] LABS: African American GFR (CKD) 37 (>60 ml/min/1.73 sqM); Anion Gap 8 mmol/L; Blood Urea Nitrogen 47 mg/dL (7-17); Calcium 8.6 mg/dL (8.4-10.2); Carbon Dioxide 35 mmol/L (22-30); Chloride 93 mmol/L (98-107); Glucose 134 mg/dL (74-99); Non-African American GFR(CKD) 32 (>60 ml/min/1.73 sqM); Potassium 3.9 mmol/L (3.5-5.1); Sodium 136 mmol/L (137-145)
[2023-06-19] MEDS: THIAMINE 100 MG TAB PO SCH (10:21)
[2023-06-19] MEDS: MAGNESIUM OXIDE 400 MG TAB PO SCH (10:21)
[2023-06-19] MEDS: MAG HYDROX/AL HYDROX/SIMETH 30 ML, diphenhydrAMINE ELIXIR 75 MG, LIDOCAINE VISCOUS 2% 3... PO SCH ×12 (10:22→22:21)
[2023-06-19] MEDS: NICOTINE 21MG/24HR PATCH TRANSDERM SCH (10:22)
[2023-06-19] MEDS: FUROSEMIDE 10 MG/ML 4 ML VIAL IV SCH (10:22)
[2023-06-19] MEDS ORDERED: FUROSEMIDE 10 MG/ML 2 ML VIAL IV STA (10:23)
[2023-06-19] MEDS: LORazepam 2 MG/ML INJ IV PRN ×2 (10:25→22:18)
[2023-06-19 11:10] LABS: C Reactive Protein 16.5 mg/dL (<1.0)
--- NOTE | 2023-06-19 12:24 | P.PN ---
Subjective Patient is seen for follow-up for acute kidney injury. She is currently being diuresed. Serum creatinine was noted to be at 0.9 yesterday however at believe this may have been an error. Creatinine is 1.8 today. It was 1.8 previously as well on 06/15/2023 Urine output at 1.7 L for 24 hours. Systolic blood pressure slightly better with midodrine. Possible discharge today Objective - Vital Signs Vital signs: Vital Signs Temp 98.2 F 06/19/23 08:00 Pulse 80 06/19/23 08:00 Resp 18 06/19/23 08:00 BP 145/79 06/19/23 08:00 Pulse Ox 97 06/19/23 08:00 FiO2 Intake & Output 06/18/23 06/19/23 06/19/23 18:59 06:59 18:59 Intake Total 480 770 225 Balance 480 770 225 Weight 107.8 kg Intake: Oral 480 770 225 Other: Voiding Method Toilet Bedside Commode # Voids 1 - Exam Patient is awake, comfortable no acute distress.. Alert oriented 3 Examination of the heart S1 and S2 Examination of the lungs bilateral breath sounds are heard Abdomen is morbidly obese Examination lower extremities shows edema 2-3+ bilaterally [employer] exam grossly intact - Labs CBC & Chem 7: 06/19/23 09:21 06/19/23 09:21 Labs: Abnormal Lab Results - Last 24 Hours (Table) 06/19/23 06/19/23 Range/Units 09:21 09:21 WBC 15.6 H (3.8-10.6) k/uL MCV 106.6 H (80.0-100.0) fL Neutrophils # 11.8 H (1.3-7.7) k/uL Monocytes # 1.3 H (0-1.0) k/uL Sodium 136 L (137-145) mmol/L Chloride 93 L (98-107) mmol/L Carbon Dioxide 35 H (22-30) mmol/L BUN 47 H (7-17) mg/dL Creatinine 1.84 H (0.52-1.04) mg/dL Glucose 134 H (74-99) mg/dL C-Reactive Protein 16.5 H (<1.0) mg/dL Assessment and Plan Assessment: 1. Acute kidney injury secondary to ATN secondary to cardiorenal syndrome. Creatinine decreased to 0.9 yesterday. I believe this was an error as creatinine is back at 1.8 today. Motrin was discontinued. Maintained on mid odrine as blood pressure was low. Creatinine in March 2023 was 0.63. No hydronephrosis noted on kidney ultrasound/CT. Right kidney small in size. UA with 1+ protein and 4 RBCs. UPC 0.86. Serologies negative. 2. Acute on chronic systolic CHF with ejection fraction of 40-45%. 3. Hyperkalemia secondary to acute kidney injury, lisinopril and spironolactone. Better. On Lokelma. 4. Volume overload. Improving with diuresis. 5. History of nephrolithiasis with left ureteral stent. Urology following. 6. Chronic pulmonary emboli with probable apical thrombus. 7. Acute on chronic right-sided heart failure. Preserved EF noted on echocardiogram. 8. History of aortic thrombus with renal infarct. Right kidney atrophic. 9. Left-sided renal stone. Ureteral stent coiled up in the bladder. Urology following. Plan: Switch to oral diuretics upon discharge. She can be discharged on Bumex 2 mg twice a day Maintain off of NSAIDs Continue midodrine
[2023-06-19] MEDS: FONDAPARINUX 7.5 MG/0.6 ML SYRINGE SQ SCH (13:28)
--- NOTE | 2023-06-19 14:10 | P.PN ---
Subjective Progress Note Date: 06/19/23 Principal diagnosis: Shortness of breath. This is a 48-year-old female with a very complicated medical history, patient is known to have history of hypertension, aortic thrombosis, chronic kidney disease, COPD, medical noncompliance, history of pulmonary embolism and pulmonary hypertension, in addition to all of this the patient continues to smoke on a regular basis, and continues to drink alcohol on a daily basis. 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 In January 07, patient was hospitalized at [facility] with elevated troponin, and congestive heart failure as well as elevated RVSP of 51, apparently she had a VQ scan at the time and she was noted to have chronic thromboembolic pulmonary hypertension but apparently the patient left AMA. Patient also had nonischemic cardiomyopathy and supposedly on diuretics but again her compliance is question. This time the patient came into the ER with mostly worsening shortness of breath with any activity, has been extremely tired and fatigued, and she has been noticing increased swelling in her lower extremities. We evaluated the patient in the ER, and reviewed the results of her echocardiogram showing severe enlargement of the right ventricle with hypokinesis and probable apical thrombus and severe pu lmonary hypertension. VQ scan showed high probability for pulmonary embolism. Patient was also noted to have elevated BNP level, and significantly elevated liver enzymes. Serum alcohol was 48, looking back at a previous CT angiogram of the chest on 03/17/2023, there was clearly evidence of a right middle lobe nodule, and I'm not certain if this is being followed by anyone on outpatient basis. Her CT angiogram on 03/17 showed no evidence of pulmonary embolism. This time her VQ scan is showing high probability for pulmonary embolism. Again the main issue here is the fact that the patient had previous history of heparin-induced thrombocytopenia and she had issues with Xarelto and I believe considering her liver enzymes, are get to back in May not be safe to use. Hence hematology consultation is very appropriate at this point Patient was reevaluated today on 06/11/23, a is in the ICU, doing much better today, remains on nasal cannula, continues to have significant erythema and ulceration noted in the lower extremities especially in the left calf region. Blood pressure remains marginal, patient has good urine output, patient is on 3 L nasal cannula and her O2 saturation is ranging between 88-93. Does not seem to be in any distress. WBC count is 15.4 hemoglobin 15.3 basic metabolic profile is normal BUN is 57 creatinine 2.0, pro-calcitonin is 0.24. Patient is on bronchodilators, diuretics, I added cefepime today, patient is also on Arixtra , tolerating that quite well. Reevaluated today on 06/12/23, remains in the ICU, patient is feeling better, breathing easier, seems to be tolerating Arixtra quite well, she is not requiring any pressors, her mean arterial pressure is normal and remained normal all along, did not require pressors and I plan to transfer the patient out of the ICU to a cardiac floor. Patient remains on Lasix at 40 mg IV push every 12 hours, remains on antibiotics/cefepime as per infectious disease on the case, and considering that the patient is not requiring much of an ICU care, I will transfer the patient to a cardiac bed. WBC count today 16 hemoglobin 14.9 basic metabolic profile is normal creatinine is improving down to 1.88 from 2.0 yes terday Reevaluated today on 06/13/23, remains in the ICU as an overflow, a is steadily improving, feeling better overall, remains on 6 L nasal cannula, CT of the chest from yesterday showed an area of consolidation and cystlike lesion in the right lower lobe which definitely needs outpatient follow-up. According to the patient she had previous history of lung nodule that had workup at [facility] and she had biopsy of her lung few years back. And she was told the findings were benign. However I believe those findings on the CT of the chest are relatively new. And she will definitely need outpatient follow-up. In the meantime the patient is doing well from the pulmonary perspective less cough and less shortness of breath, she is on cefepime for her cellulitis and questionable pneumonia, she is also on Lasix 40 mg twice a day. And she is on Arixtra. WBC count today is 20.9 hemoglobin 14.5 basic metabolic profile is normal however her potassium is 5.7 BUN is 66 creatinine 1.84 liver enzymes remain a bit elevated Very today on 06/14/23, remains in the ICU as an overflow, patient remains on Arixtra, cefepime, Lasix 40 mg IV push twice a day, he is also on bronchodilators, and oxygen at 6 L/m. Not much of a change on this patient in the last 24 hours, she is basically about the same, on her chest x-ray there seems to be a new right lower lobe consolidation, and this was also noted on the CT of the chest. It is a masslike consolidation in the right lower lobe, relatively new. Patient has intermittent cough and wheezing continues to have leukocytosis but improving with WBC count of 17.1. Basic metabolic profile is normal renal functioning is a bit better with creatinine coming down from 1.84 down to 1.68. Progress note dated 06/15/2023. This is a 48-year-old female who was admitted back on June 10. She came to the intensive care unit on June 10. She was admitted with a diagnosis of shortness of breath, heart failure, COPD, and pulmonary embolism. Currently, she is an overflow patient, awaiting a bed on . She's on 4 L of oxygen by nasal cannula. She's not receiving any IV fluids. She's feeling much better. She sitting at the side of the bed. White count 11.2, hemoglobin 12.9, hematocrit 40.9, and platelet count was 132,000. Sodium 137, potassium 3.8, chlorides 97, CO2 29, BUN 68, creatinine 1.87. Wound cultures of the leg, on the right, show evidence of Acinetobacter and Pseudomonas. Chest x-ray from yesterday shows airspace disease, right lower lobe. Progress note dated 06/16/2023. 48-year-old female was seen yesterday in the intensive care unit. She was admitted back on June 10, she came to the intensive care unit on the third, and was admitted with a diagnosis of shortness of breath, heart failure, COPD, and pulmonary embolism. Currently, the patient is on 2 L of oxygen. She's not receiving any IV fluids. Her saturations are 94%. She's lying nearly flat in bed, no distress. No new labs today. Labs from June 15, have been reviewed. Progress note dated 06/17/2023. 48-year-old female was seen in the intensive care unit, initially. The patient was admitted back on June 10, coming into the intensive care unit, with a diagnosis of shortness of breath, heart failure, COPD, pulmonary embolism. The patient is now seen today in room 378. The patient is currently doing reasonably well. She's on 3 L of oxygen. She's not receiving any IV fluids. Her foot wound was positive for both Pseudomonas and Acinetobacter, and for that she is on cefepime. Her blood thinner is Arixtra. Currently labs include a sodium of 137, potassium 3.5, chlorides 96, CO2 33, anion gap 8, BUN 41, creatinine 0.99. This compares to a BUN and creatinine 2 days ago 68 and 1.87. Glucose 110. Progress note dated 06/18/2023. 48-year-old female initially seen in the intensive care unit, for shortness of breath, CHF, and pulmonary embolism. The patient is now seen in room 378. The patient continues on oxygen at 2 L. Saturations are 96%. She also continues on cefepime, oriented foot wound, which revealed both Acinetobacter, and Pseudomonas. The patient denies any significant shortness of breath. She is re sting comfortably, sitting at the side of the bed. No new labs today. Labs from June 17 have been reviewed. Progress note dated 06/19/2023. 48-year-old female seen in room 378. The patient is currently doing reasonably well. She continues on oxygen, at 2 L. She's not receiving any IV fluids. She continues on cefepime, for her wound infection, which was positive for both Pseudomonas, and Acinetobacter. White count is 15.6, hemoglobin 13.7, hematocrit 43.2, and platelet count 202,000. Sodium 136, potassium 3.9, chloride 93, CO2 35, BUN 47, and creatinine 1.84. No recent x-rays to report. Objective - Vital Signs Vital signs: Vital Signs Temp 98.2 F 06/19/23 08:00 Pulse 80 06/19/23 08:00 Resp 18 06/19/23 08:00 BP 145/79 06/19/23 08:00 Pulse Ox 97 06/19/23 08:00 FiO2 Intake & Output 06/18/23 06/19/23 06/19/23 18:59 06:59 18:59 Intake Total 480 770 335 Balance 480 770 335 Weight 107.8 kg Intake: Oral 480 770 335 Other: Voiding Method Toilet Bedside Commode # Voids 1 - Exam No acute distress, oriented 3. No overt respiratory distress. No audible wheezing or use of accessory muscles. HEENT examination is grossly unremarkable. Currently on 2 L nasal cannula. Neck supple. Full range of motion. No adenopathy thyromegaly or neck vein distention. Cardiovascular examination reveals regular rhythm rate. S1-S2 normal. No S3 or S4. No discernible murmur noted. Heart sounds are distant. Heart rate 80 bpm. Lungs reveal mild scattered rhonchi. No wheezes. No crackles. Breath sounds equal bilaterally. Saturations 94 % on 2 L. Abdomen soft bowel sounds are heard. No masses or tenderness. Extremities are intact. No cyanosis clubbing or edema. Skin is without rash or lesion. Neurologic examination is brief but nonfocal. - Labs CBC & Chem 7: 06/19/23 09:21 06/19/23 09:21 Labs: Abnormal Lab Results - Last 24 Hours (Table) 06/19/23 06/19/23 Range/Units 09:21 09:21 WBC 15.6 H (3.8-10.6) k/uL MCV 106.6 H (80.0-100.0) fL Neutrophils # 11.8 H (1.3-7.7) k/uL Monocytes # 1.3 H (0-1.0) k/uL Sodium 136 L (137-145) mmol/L Chloride 93 L (98-107) mmol/L Carbon Dioxide 35 H (22-30) mmol/L BUN 47 H (7-17) mg/dL Creatinine 1.84 H (0.52-1.04) mg/dL Glucose 134 H (74-99) mg/dL C-Reactive Protein 16.5 H (<1.0) mg/dL Assessment and Plan Assessment: Acute hypoxemic respiratory failure, in part related to CHF, and also pulmonary embolism. Possible chronic thromboembolic pulmonary hypertension. Acute pulmonary embolism. Acute alcoholic hepatitis. Acute kidney injury. Nonischemic cardiomyopathy. Severe pulmonary hypertension. History of aortic thromboses and renal infarct. Acute on chronic kidney disease. History of pulmonary nodule. History of heparin-induced thrombocytopenia. Chronic venous insufficiency chronic venous stasis, and lower extremity infection. COPD. Obesity. Tobacco dependence syndrome. History of alcohol abuse. Wound, right leg, secondary to Acinetobacter and Pseudomonas. Plan: Plan dated 06/15/2023. The patient is seen today in room 253, intensive care unit. The patient will need outpatient evaluation of an abnormality seen on computed tomography scan of the chest, in the right lower lobe area. The patient will continue on diuretics, cefepime, bronchodilators, and Arixtra. Additional recommendations and suggestions are forthcoming. The patient is potential overflow patient to 3 S. Additional recommendations and suggestions are forthcoming. We will steve clarissae to follow the patient make recommendations along the way. Prognosis is guarded. Plan dated 06/16/2023. The patient is seen today in room 378. Yesterday, she was in the intensive care unit, room 253. She's been weaned down to 2 L of oxygen. Labs, x-rays, medications are reviewed. The patient is currently not receiving any IV fluids. She continues on appropriate medications, including diuretics, antibiotics, bronchodilators, and blood thinners. We will continue to follow, and make rec ommendations along the way. Prognosis is guarded. Plan dated 06/17/2023. The patient is seen today in room 378. The patient continues on oxygen, at 3 L. Her saturations are 96%. Labs, x-rays, and medications are all reviewed. She continues on cefepime, for wound, that's demonstrating both Pseudomonas and Acinetobacter. She's currently on Arixtra, for a blood thinner, for her pulmonary embolism. We will continue to follow, and make recommendations along the way. Prognosis is guarded. No additional recommendations are made. Plan dated 06/18/2023. The patient is seen today in room 378. She sitting at the edge of her bed. She is on 2 L of oxygen. Labs, x-rays, medications are reviewed. She continues on cefepime, for a wound infection, involving her foot, which apparently showed evidence of both Acinetobacter, and Pseudomonas. Labs, x-rays, medications are reviewed. The patient's overall prognosis remains guarded. We will continue to follow. She also continues on Arixtra, for her pulmonary embolism. She is not manifesting any signs or symptoms of respiratory distress. She denies any shortness of breath, chest tightness, wheezing, cough, or phlegm production. Plan dated 06/19/2023. The patient is again seen today in room 378. She sitting on the side of the bed . She appears relatively comfortable. She is on oxygen at 2 L. The patient is not receiving any IV fluids. She continues on IV antibiotics in the form of cefepime, for her wound infection involving her foot, which was contaminated with both Pseudomonas, and Acinetobacter. Labs, x-rays, and medications are reviewed. The patient's overall prognosis remains guarded. She denies any shortness of breath, cough, wheezing, chest tightness, or phlegm production. Likewise, she denies any chest pain or chest discomfort. Time with Patient: Less than 30
[2023-06-19] MEDS: FUROSEMIDE 10 MG/ML 10 ML VIAL IV SCH (22:18)
[2023-06-20] MEDS: MIDODRINE 5 MG TAB PO SCH ×2 (06:55→08:56)
[2023-06-20] MEDS: PANTOPRAZOLE 40 MG TABLET PO SCH (06:55)
[2023-06-20] MEDS: THIAMINE 100 MG TAB PO SCH (09:01)
[2023-06-20] MEDS: MAGNESIUM OXIDE 400 MG TAB PO SCH (09:01)
[2023-06-20] MEDS: FUROSEMIDE 10 MG/ML 10 ML VIAL IV SCH (09:01)
[2023-06-20] MEDS: BENZONATATE 100 MG CAP PO SCH ×2 (09:01→16:09)
[2023-06-20] MEDS: CEFEPIME 2 GM in SODIUM CHLORIDE 0.9% 100 ML IVPB SCH (09:02)
[2023-06-20] MEDS: LORazepam 2 MG/ML INJ IV PRN ×2 (09:08→14:41)
[2023-06-20] MEDS: NICOTINE 21MG/24HR PATCH TRANSDERM SCH (09:08)
[2023-06-20] MEDS: IPRATROPIUM-ALBUTEROL 3 ML NEB INHALATION SCH ×3 (09:14→15:57)
[2023-06-20] MEDS: SYMBICORT 160-4.5 MCG INHALER INHALATION SCH (09:14)
[2023-06-20] MEDS: MAG HYDROX/AL HYDROX/SIMETH 30 ML, diphenhydrAMINE ELIXIR 75 MG, LIDOCAINE VISCOUS 2% 3... PO SCH ×6 (09:19→16:08)
[2023-06-20 09:36] VITALS: RESP 20
--- NOTE | 2023-06-20 10:39 | P.PN ---
Subjective Patient is seen for follow-up for acute kidney injury. She is currently being diuresed. Serum creatinine staying at about 1.8. The reading of 0.9 was likely an error. Urine output at 1.7 L for 24 hours. Systolic blood pressure slightly better with midodrine. Possible discharge today Objective - Vital Signs Vital signs: Vital Signs Temp 98.6 F 06/20/23 09:00 Pulse 92 06/20/23 09:30 Resp 20 06/20/23 09:00 BP 136/70 06/20/23 09:00 Pulse Ox 92 L 06/20/23 09:17 FiO2 Intake & Output 06/19/23 06/20/23 06/20/23 18:59 06:59 18:59 Intake Total 695 478 Balance 695 478 Weight 107.1 kg Intake: Oral 695 478 Other: Voiding Method Toilet Bedside Commode # Voids 1 - Exam Patient is awake, comfortable no acute distress.. Alert oriented 3 Examination of the heart S1 and S2 Examination of the lungs bilateral breath sounds are heard Abdomen is morbidly obese Examination lower extremities shows edema 2-3+ bilaterally TAX ASSISTANT exam grossly intact - Labs CBC & Chem 7: 06/19/23 09:21 06/19/23 09:21 Labs: Abnormal Lab Results - Last 24 Hours (Table) 06/19/23 Range/Units 09:21 C-Reactive Protein 16.5 H (<1.0) mg/dL Assessment and Plan Assessment: 1. Acute kidney injury secondary to ATN secondary to cardiorenal syndrome. . Serum creatinine staying at 1.8. I believe the reading of 0.9 was at her.. Motrin was discontinued. Maintained on midodrine as blood pressure was low. Creatinine in March 2023 was 0.63. No hydronephrosis noted on kidney ultrasound/CT. Right kidney small in size. UA with 1+ protein and 4 RBCs. UPC 0.86. Serologies negative. 2. Acute on chronic systolic CHF with ejection fraction of 40-45%. 3. Hyperkalemia secondary to acute kidney injury, lisinopril and spironolactone. Better. On Lokelma. 4. Volume overload. Improving with diuresis. 5. History of nephrolithiasis with left ureteral stent. Urology following. 6. Chronic pulmonary emboli with probable apical thrombus. 7. Acute on chronic right-sided heart failure. Preserved EF noted on echocardiogram. 8. History of aortic thrombus with renal infarct. Right kidney atrophic. 9. Left-sided renal stone. Ureteral stent coiled up in the bladder. Urology following. Plan: Switch to oral diuretics upon discharge. She can be discharged on Bumex 2 mg twice a day Maintain off of NSAIDs Continue midodrine Follow-up with urology post discharge
--- NOTE | 2023-06-20 11:20 | DS ---
DISCHARGE SUMMARY I am covering for Dr. Cody. FINAL DIAGNOSES: 1. Congestive heart failure acute exacerbation with acute hypoxic respiratory failure. 2. Acute pulmonary embolism. 3. Possible chronic thromboembolic pulmonary hypertension. 4. Acute alcoholic hepatitis. 5. Chronic obstructive pulmonary disease. 6. Nonischemic cardiomyopathy. 7. Severe pulmonary hypertension. 8. Multiple complex medical issues. DISCHARGE DISPOSITION: The patient will be discharged in stable condition and guarded prognosis. HISTORY OF PRESENT ILLNESS: A 48-year-old woman with past medical history of multiple medical problems, was admitted with shortness of breath. The patient had CHF and pulmonary embolism and pulmonary hypertension, was treated in conjunction with Dr. Watson in Cardiology. The patient improved significantly. The patient is extremely keen on going home today, so the patient was discharged in stable condition with extremely guarded prognosis because of multiple complex medical issues. Close followup with Dr. Cody and consultants recommended at this time. Monitor creatinine closely in the outpatient setting. PHYSICAL EXAMINATION: VITAL SIGNS: Stable. CARDIOVASCULAR: S1, S2. RESPIRATIONS: Few scattered rhonchi and crackles. The patient will be discharged home in a stable condition and guarded prognosis. Resume the home medications, 1. Eliquis 2.5 mg p.o. b.i.d. 2. no smoking. 3. Midodrine 5 mg b.i.d. 4. Thiamine 100 mg daily. 5. DuoNeb q.i.d. and p.r.n. 6. Lasix 40 mg p.o. b.i.d. dose to adjust as an outpatient. 7. Protonix 40 mg b.i.d. 8. Symbicort one b.i.d. FOLLOWUP: Follow up with Dr. Cody. Follow up with Dr. Ch. Follow up with Dr. Watson as recommended. Follow up with Dr. Anaya as recommended for renal failure and continued monitoring. Once again, the patient will be discharged in stable condition, guarded prognosis. MMODL / IJN: [id number] / MTDD
[2023-06-20 11:46] VITALS: BP 115/74; TEMP 99.3
[2023-06-20] MEDS: FONDAPARINUX 7.5 MG/0.6 ML SYRINGE SQ SCH (13:03)
--- NOTE | 2023-06-20 13:42 | P.PN ---
Subjective Progress Note Date: 06/20/23 The patient is seen 06/20/2023 in follow-up on the selective care unit. She is currently sitting up at the bedside. Awake and alert in no acute distress. She denies any worsening shortness of breath, cough or congestion. She is maintaining O2 saturations in the 90s on 3 L/m per nasal cannula. She's a febrile. Hemodynamically stable. Her right leg wound cultures were positive for Acinetobacter, pseudomonas. She remains on cefepime. She continued on DuoNeb inhalations, Symbicort, Tessalon Perles. NicoDerm patch in place. Anticoagulated with Arixtra. Remains on diuretics. Objective - Vital Signs Vital signs: Vital Signs Temp 99.3 F 06/20/23 11:28 Pulse 98 06/20/23 12:15 Resp 20 06/20/23 11:28 BP 115/74 06/20/23 11:28 Pulse Ox 93 L 06/20/23 11:28 FiO2 Intake & Output 06/19/23 06/20/23 06/20/23 18:59 06:59 18:59 Intake Total 695 716 Balance 695 716 Weight 107.1 kg Intake: Oral 695 716 Other: Voiding Method Toilet Bedside Commode # Voids 1 - Exam GENERAL EXAM: Alert, 48-year-old female, on 3 L nasal cannula, comfortable in no apparent distress. HEAD: Normocephalic. EYES: Normal reaction of pupils, equal size. NOSE: Clear with pink turbinates. THROAT: No erythema or exudates. NECK: No masses, no JVD. CHEST: No chest wall deformity. LUNGS: Equal air entry with pink crackles in the posterior bases, diminished. CVS: S1 and S2 normal with no audible murmur, regular rhythm. ABDOMEN: No hepatosplenomegaly, normal bowel sounds, no guarding or rigidity. SPINE: No scoliosis or deformity SKIN: No rashes CENTRAL NERVOUS SYSTEM: No focal deficits, tone is normal in all 4 extremities. EXTREMITIES: There is 1+ peripheral edema. No clubbing, no cyanosis. Peripheral pulses are intact. - Labs CBC & Chem 7: 06/19/23 09:21 06/19/23 09:21 Assessment and Plan Assessment: Acute hypoxemic respiratory failure, in part related to CHF, and also pulmonary embolism. Possible chronic thromboembolic pulmonary hypertension. Acute pulmonary embolism. Acute alcoholic hepatitis. Acute kidney injury. Nonischemic cardiomyopathy. Severe pulmonary hypertension. History of aortic thromboses and renal infarct. Acute on chronic kidney disease. History of pulmonary nodule. History of heparin-induced thrombocytopenia. Chronic venous insufficiency chronic venous stasis, and lower extremity infection. COPD. Obesity. Tobacco dependence syndrome. History of alcohol abuse. Wound, right leg, secondary to Acinetobacter and Pseudomonas. Plan: The patient was seen and evaluated Medications reviewed Stable for discharge from the pulmonary standpoint Continued on DuoNeb's, Symbicort Continued on anticoagulation Again educated regarding the importance of complete smoking cessation Follow-up in our office in 1 week I have personally seen and examined the patient, performed the documentation and the assessment and plan as written. Number of minutes spent on the visit: 10.
--- NOTE | 2023-06-20 14:21 | P.PN ---
Subjective Progress Note Date: 06/19/23 Principal diagnosis: Reason for follow-up is left lower extremity wound and cellulitis Patient is a 48-year-old female with a past medical history significant for COPD heart failure hypertension [place] PE and renal disease patient presented to hospital on 06/10/2023 for evaluation of lower extremity swelling and pain has been diagnosed with a left lower extremity DVT and did have a wound and concern for secondary cellulitis On today's evaluation that is 06/19/2023 patient continues to be afebrile, patient is breathing comfortably on 2 L nasal cannula oxygen. The patient denies chest pain shortness of breath, did have occasional cough, the patient denies any nausea or vomiting, no abdominal pain or diarrhea, the patient denies pain to the left lower extremity Patient white count is slightly up to 15.6 today, creatinine is 1.84 Objective - Vital Signs Vital signs: Vital Signs Temp 98.2 F 06/19/23 08:00 Pulse 80 06/19/23 08:00 Resp 18 06/19/23 08:00 BP 145/79 06/19/23 08:00 Pulse Ox 97 06/19/23 08:00 FiO2 Intake & Output 06/18/23 06/19/23 06/19/23 18:59 06:59 18:59 Intake Total 480 770 225 Balance 480 770 225 Weight 107.8 kg Intake: Oral 480 770 225 Other: Voiding Method Toilet Bedside Commode # Voids 1 - Exam GENERAL DESCRIPTION: Middle-aged female up in the bed in bed in no distress RESPIRATORY SYSTEM: Unlabored breathing , coarse breath sounds at bases HEART: S1 S2 regular rate and rhythm , ABDOMEN: Soft , no tenderness EXTREMITIES: Bilateral extremity swelling left leg wound is healed redness has improved - Labs CBC & Chem 7: 06/19/23 09:21 06/19/23 09:21 Labs: Abnormal Lab Results - Last 24 Hours (Table) 06/19/23 06/19/23 Range/Units 09:21 09:21 WBC 15.6 H (3.8-10.6) k/uL MCV 106.6 H (80.0-100.0) fL Neutrophils # 11.8 H (1.3-7.7) k/uL Monocytes # 1.3 H (0-1.0) k/uL Sodium 136 L (137-145) mmol/L Chloride 93 L (98-107) mmol/L Carbon Dioxide 35 H (22-30) mmol/L BUN 47 H (7-17) mg/dL Creatinine 1.84 H (0.52-1.04) mg/dL Glucose 134 H (74-99) mg/dL C-Reactive Protein 16.5 H (<1.0) mg/dL Assessment and Plan (1) Left leg cellulitis Current Visit: Yes Status: Acute Code(s): L03.116 - CELLULITIS OF LEFT LOWER LIMB SNOMED Code(s): 64548775984897450 (2) Wound of left leg Current Visit: Yes Status: Acute Code(s): S81.802A - UNSPECIFIED OPEN WOUND, LEFT LOWER LEG, INITIAL ENCOUNTER SNOMED Code(s): 464319424 Plan: 1patient presented hospital with increasing shortness of breath lower extremity swelling which is multifactorial in this patient who did have a history of CHF also with evidence of DVT to the left lower extremity and some superficial ulceration likely component of venous stasis ulceration and concerning for possible secondary cellulitis 2--local wound care with dry Aquacel silver dressing and Kerlix change every 48 hour 3patient local culture has been finalized with Acinetobacter and Pseudomonas that is sensitive to cefepime, 4-patient did have resolution of her fever and the left lower extremity wound is healed, however the patient was noted to have slight worsening of the white count will be monitored closely 5- patient to continue on cefepime while inpatient and monitor clinical course closely Dictation was produced using [employer] dictation software. please excuse any grammatical, word or spelling errors. Time with Patient: Less than 30
--- NOTE | 2023-06-20 14:23 | P.PN ---
Subjective Progress Note Date: 06/20/23 Principal diagnosis: Reason for follow-up is left lower extremity wound and cellulitis Patient is a 48-year-old female with a past medical history significant for COPD heart failure hypertension [place] PE and renal disease patient presented to hospital on 06/10/2023 for evaluation of lower extremity swelling and pain has been diagnosed with a left lower extremity DVT and did have a wound and concern for secondary cellulitis On today's evaluation that is 06/20/2023 patient remains to be afebrile, patient is breathing comfortably on 2 L nasal cannula oxygen. The patient denies chest pain shortness of breath, the patient did have occasional cough, the patient denies any nausea or vomiting, no abdominal pain or diarrhea, the patient pain to the left lower extremity is currently controlled Patient white count is slightly up to 15.6 and creatinine is 1.84 as of 2023 Objective - Vital Signs Vital signs: Vital Signs Temp 99.3 F 06/20/23 11:28 Pulse 98 06/20/23 12:15 Resp 20 06/20/23 11:28 BP 115/74 06/20/23 11:28 Pulse Ox 93 L 06/20/23 11:28 FiO2 Intake & Output 06/19/23 06/20/23 06/20/23 18:59 06:59 18:59 Intake Total 695 716 Balance 695 716 Weight 107.1 kg Intake: Oral 695 716 Other: Voiding Method Toilet Bedside Commode # Voids 1 - Exam GENERAL DESCRIPTION: Middle-aged female up in the bed in bed in no distress RESPIRATORY SYSTEM: Unlabored breathing , coarse breath sounds at bases HEART: S1 S2 regular rate and rhythm , ABDOMEN: Soft , no tenderness EXTREMITIES: Bilateral extremity swelling left leg currently covered with no drainage on the dressing - Labs CBC & Chem 7: 06/19/23 09:21 06/19/23 09:21 Assessment and Plan (1) Left leg cellulitis Current Visit: Yes Status: Acute Code(s): L03.116 - CELLULITIS OF LEFT LOWER LIMB SNOMED Code(s): 64018038752537404 (2) Wound of left leg Current Visit: Yes Status: Acute Code(s): S81.802A - UNSPECIFIED OPEN WOUND, LEFT LOWER LEG, INITIAL ENCOUNTER SNOMED Code(s): 788089044 Plan: 1patient presented hospital with increasing shortness of breath lower extremity swelling which is multifactorial in this patient who did have a history of CHF also with evidence of DVT to the left lower extremity and some superficial ulceration likely component of venous stasis ulceration and concerning for possible secondary cellulitis 2--local wound care with dry Aquacel silver dressing and Kerlix change every 48 hour 3patient local culture has been finalized with Acinetobacter and Pseudomonas that is sensitive to cefepime, 4-patient did have resolution of her fever and the left lower extremity wound is healed, however the patient was noted to have slight worsening of the white count, we will repeat CBC and CRP with a.m. lab 5- patient to continue on cefepime and monitor clinical course closely Dictation was produced using [employer] dictation software. please excuse any grammatical, word or spelling errors. Time with Patient: Less than 30
[2023-06-20 16:29] VITALS: PULSE 94
== END 2023-06-20 16:18 | disposition home health service (06) | DRG 299 ==
LOC: EC 02:23 → 3SCARD 04:33 → 2SICU 12:35 → 3SCARD 06-15 18:20
PROVIDERS: ADMIT Family Medicine; ATTEND Family Medicine
DX: I82.402 Acute embolism and thrombosis of unspecified deep veins of left lower extremity (principal); I26.99 Other pulmonary embolism without acute cor pulmonale; I50.43 Acute on chronic combined systolic (congestive) and diastolic (congestive) heart failure; N17.0 Acute kidney failure with tubular necrosis; J96.01 Acute respiratory failure with hypoxia; I13.0 Hypertensive heart and chronic kidney disease with heart failure and stage 1 through stage 4 chronic kidney disease, or unspecified chronic kidney disease; Z68.41 Body mass index [BMI] 40.0-44.9, adult; J44.1 Chronic obstructive pulmonary disease with (acute) exacerbation; L03.115 Cellulitis of right lower limb; L03.116 Cellulitis of left lower limb; L97.229 Non-pressure chronic ulcer of left calf with unspecified severity; N20.2 Calculus of kidney with calculus of ureter; N39.0 Urinary tract infection, site not specified; E87.20 Acidosis, unspecified; I42.8 Other cardiomyopathies; I27.82 Chronic pulmonary embolism; I50.82 Biventricular heart failure; Z28.311 Partially vaccinated for COVID-19; I83.009 Varicose veins of unspecified lower extremity with ulcer of unspecified site; K76.0 Fatty (change of) liver, not elsewhere classified; K70.10 Alcoholic hepatitis without ascites; E66.9 Obesity, unspecified; J44.9 Chronic obstructive pulmonary disease, unspecified; Z11.52 Encounter for screening for COVID-19; I27.24 Chronic thromboembolic pulmonary hypertension; Z79.01 Long term (current) use of anticoagulants; I51.3 Intracardiac thrombosis, not elsewhere classified; D75.89 Other specified diseases of blood and blood-forming organs; E87.5 Hyperkalemia; F17.210 Nicotine dependence, cigarettes, uncomplicated; F41.9 Anxiety disorder, unspecified; I25.10 Atherosclerotic heart disease of native coronary artery without angina pectoris; I25.2 Old myocardial infarction; I87.2 Venous insufficiency (chronic) (peripheral); I87.8 Other specified disorders of veins; L81.9 Disorder of pigmentation, unspecified; K12.30 Oral mucositis (ulcerative), unspecified; N18.9 Chronic kidney disease, unspecified; R31.0 Gross hematuria; R74.01 Elevation of levels of liver transaminase levels; Y90.2 Blood alcohol level of 40-59 mg/100 ml; Z71.3 Dietary counseling and surveillance; Z96.0 Presence of urogenital implants; Z87.01 Personal history of pneumonia (recurrent); Z86.14 Personal history of Methicillin resistant Staphylococcus aureus infection; Z86.16 Personal history of COVID-19; Z79.82 Long term (current) use of aspirin; Z79.51 Long term (current) use of inhaled steroids; Z79.899 Other long term (current) drug therapy; Z87.442 Personal history of urinary calculi; Z91.199 Patient's noncompliance with other medical treatment and regimen due to unspecified reason
CPT/HCPCS: 36415; 51798; 71045; 71250; 74150; 76705; 76770; 78582; 80048; 80053; 80074; 80320; 81001; 82570; 82607; 82747; 83605; 83690; 83735; 83880; 84132; 84145; 84156; 84165; 84450; 84460; 84484; 85025; 85027; 85379; 85610; 85730; 86038; 86140; 86160; 86162; 86225; 86255; 86334; 86335; 87040; 87070; 87075; 87077; 87086; 87186; 87205; 87636; 93005; 93306; 93970; 93976; 94640; 94760; 96365; 96372; 96375; 99291